=== PATIENT | female | born 1935 | race Two or more races ===

== ENCOUNTER 2016-09-25 21:22 | Emergency (ER) | payer MEDICAID ==
[~2016-09-25] VITALS: Ht 160 cm; Wt 74.9 kg
[~2016-09-25 21:22] MED LIST: ANAS1TAB6 PO; ASPI-231 PO; ATEN-60 PO; CLOP75TA28 PO; FURO40TA4 PO; GABA300C8 PO; LISI10TA6 PO; LOVA20TA4 PO; MECL12.554 PO
[2016-09-25] MEDS ORDERED: cloNIDine HCL 0.1 MG TAB ONE (21:28)
[2016-09-25] MEDS ORDERED: cloNIDine HCL 0.1 MG TAB PO ONE (22:00)
[2016-09-25 22:38] LABS: Albumin 3.5 g/dL (3.4-5.0); BUN/Creatinine Ratio 26.5; Calcium 9.6 mg/dL (8.5-10.1); Potassium 3.9 mmol/L (3.5-5.1)
[2016-09-25 22:41] LABS: Bilirubin, Total 0.4 mg/dL (0.2-1.0); Total Protein 7.4 g/dL (6.4-8.2)
[2016-09-25 22:42] VITALS: BP 113/58
[2016-09-25 22:48] LABS: Basophils # (auto) 0 uL; Basophils % (auto) 0.2 % (0.0-2.0); Eosinophils # (auto) 0.1 uL; Eosinophils % (auto) 1.3 % (0.0-7.0); Hematocrit 41.4 % (36.0-46.0); Hemoglobin 13.2 g/dL (12.2-16.2); Lymphocytes # (auto) 1.5 uL; Mean Corpuscular Hemoglobin 28.6 pg (28.0-32.0); Mean Corpuscular Hgb Conc. 31.9 g/dL (32.0-36.0); Mean Corpuscular Volume 89.7 fL (80.0-100.0); Mean Platelet Volume 8.4 fL (7.4-10.4); Monocytes # (auto) 0.8 uL; Neutrophils # (auto) 6.2 uL; Neutrophils % (auto) 71.5 % (37.0-80.0); Platelet Count (auto) 300 10^3/uL (140-450); Red Cell Distribution Width 12.4 % (11.6-16.0); White Blood Cell 8.6 10^3/uL (4.4-10.8)
[2016-09-25 22:58] LABS: INR 1.06 (0.9-1.15); Partial Thromboplastin Time 26.2 sec (22.64-33.71); Prothrombin Time 10.9 sec (9.37-12.3)
== END 2016-09-25 23:22 | disposition left against medical advice (07) ==
LOC: ER 21:25
DX: R03.0 Elevated blood-pressure reading, without diagnosis of hypertension (principal); Z53.21 Procedure and treatment not carried out due to patient leaving prior to being seen by health care provider
CPT/HCPCS: 36415; 80053; 84484; 85025; 85610; 85730; 93005

== ENCOUNTER 2017-11-01 05:37 | Inpatient (IN) | payer MEDICAID ==
[~2017-11-01] VITALS: Ht 167.6 cm; Wt 73.7 kg
[~2017-11-01 05:37] MED LIST changes: +GABA300C10 PO; -GABA300C8 PO
[2017-11-01] MEDS ORDERED: PROMETHAZINE W/CODEINE 5 ML ORAL SYRUP PO ONE (06:45)
[2017-11-01 07:29] LABS: Hematocrit 36.1 % (36.0-46.0); Hemoglobin 12.5 g/dL (12.2-16.2); Mean Corpuscular Hemoglobin 29.8 pg (28.0-32.0); Mean Corpuscular Hgb Conc. 34.7 g/dL (32.0-36.0); Mean Corpuscular Volume 85.9 fL (80.0-100.0); Platelet Count (auto) 379 10^3/uL (140-450); Red Cell Distribution Width 12.3 % (11.8-14.3); White Blood Cell 12.3 10^3/uL (4.4-10.8)
[2017-11-01 07:34] LABS: Basophils % (manual) 0 (0.0-2.0); Eosinophils % (manual) 0 (0-7); Metamyelocytes % 0; Myelocytes % 0
[2017-11-01 07:35] LABS: Blast Cells 0; Promyelocytes % 0; Reactive Lymphocytes 0
[2017-11-01 07:43] LABS: INR 1.04 (0.9-1.15); Prothrombin Time 11.3 sec (9.37-12.3)
[2017-11-01 08:00] LABS: Alanine Aminotransferase 26 U/L (13-56); Albumin 2.6 g/dL (3.4-5.0); Alkaline Phosphatase 84 U/L (45-117); Anion Gap 10 (5-15); Aspartate Aminotransferase 23 U/L (15-37); BUN/Creatinine Ratio 11.9; Bilirubin, Total 0.4 mg/dL (0.2-1.0); Blood Urea Nitrogen 7 mg/dL (7-18); Calcium 8.5 mg/dL (8.5-10.1); Carbon Dioxide 28 mmol/L (21-32); Chloride 87 mmol/L (98-107); GFR African American 125 mL/min; GFR Non-African American 103 mL/min; Glucose 179 mg/dL (74-106); Sodium 125 mmol/L (136-145); Total Protein 6.2 g/dL (6.4-8.2)
[2017-11-01 08:06] LABS: Potassium 2.5 mmol/L (3.5-5.1)
[2017-11-01] MEDS ORDERED: SODIUM CHLORIDE 0.9% 1,000 ML IV ONE ×2 (08:08)
[2017-11-01] MEDS ORDERED: cefTRIAXone 1GM/10ml IVPUSH 10 ML IV ONE (08:15)
[2017-11-01] MEDS: POTASSIUM CHL 20MEQ/100ML 100 ML IV SCH ×3 (08:15→12:15)
[2017-11-01] MEDS ORDERED: AZITHROMYCIN 500MG/ 250ML 250 ML IV ONE (08:15)
[2017-11-01 08:25] LABS: Band Neutrophils % (manual) 2; Lymphocytes % (manual) 8 (10.0-50.0); Monocytes % (manual) 5 (0-12)
[2017-11-01 10:12] LABS: Urine Bacteria NONE SEEN /hpf (None Seen); Urine Blood Negative /uL (Negative); Urine Specific Gravity 1.004 (1.001-1.035); Urine WBC 1 /hpf (0 - 5)
[2017-11-01] MEDS ORDERED: DEXTROSE (50%) 50ML SYRG IV PRN (14:15)
[2017-11-01] MEDS ORDERED: MORPHINE SULFATE 4 MG/ML SYR/VIAL IV PRN (14:30)
[2017-11-01] MEDS ORDERED: NITROGLYCERIN 0.4 MG SL TAB SL PRN (14:30)
[2017-11-01] MEDS ORDERED: ACETAMINOPHEN 325 MG TAB PO PRN (14:30)
[2017-11-01] MEDS ORDERED: DOCUSATE SOD 100 MG CAP PO PRN (14:30)
[2017-11-01] MEDS ORDERED: TEMAZEPAM 15 MG CAP PO PRN (14:30)
[2017-11-01] MEDS ORDERED: HYDROcodone-ACET 5/325MG TAB PO PRN (14:30)
[2017-11-01] MEDS ORDERED: ONDANSETRON HCL 4 MG/2 ML VIAL IV PRN (14:30)
[2017-11-01] MEDS ORDERED: MAGN400T5 PO (15:26)
[2017-11-01] MEDS ORDERED: CLON0.1T PO (15:26)
[2017-11-01] MEDS ORDERED: METF-370 PO (15:26)
[2017-11-01] MEDS ORDERED: cloNIDine HCL 0.1 MG TAB PO PRN (15:30)
[2017-11-01] MEDS ORDERED: MECLIZINE HCL 25 MG TAB PO PRN (15:30)
[2017-11-01] MEDS ORDERED: METOPROLOL SUCCINATE XL 50 MG TAB PO ONE (16:00)
[2017-11-01] MEDS ORDERED: ATORVASTATIN 20 MG TAB PO ONE (16:00)
[2017-11-01] MEDS: MAGNESIUM OXIDE 400 MG TAB PO SCH (16:19)
[2017-11-01] MEDS: CLOPIDOGREL BISULFATE 75 MG TAB PO SCH (16:19)
[2017-11-01] MEDS: GABAPENTIN 300 MG CAP PO SCH (16:19)
[2017-11-01] MEDS: ATORVASTATIN 20 MG TAB PO SCH (16:21)
[2017-11-01] MEDS: FUROSEMIDE 20 MG TAB PO SCH (16:21)
[2017-11-01] MEDS: metFORMIN HYDROCHLORIDE 500 MG TAB PO SCH (16:24)
[2017-11-01 16:39] VITALS: BP 162/93
[2017-11-01 17:00] VITALS: BP 163/93
[2017-11-01] MEDS: InsuLIN REG 1unit/0.01ml Soln (100units/ml) SC SCH (17:00)
[2017-11-01] MEDS: ACCU-CHEK COMFORT CURVE STRIP VI SCH ×2 (17:00→22:00)
[2017-11-01] MEDS: ALBUTEROL SULF 2.5 MG/0.5ML(0.5%) NEB SOLN NEB SCH (18:52)
[2017-11-01] MEDS: IPRATROPIUM BROM 0.5 MG/2.5ML INH SOL NEB SCH (18:52)
[2017-11-01 19:02] LABS: BUN/Creatinine Ratio 10.3; Calcium 8.7 mg/dL (8.5-10.1); Potassium 4.2 mmol/L (3.5-5.1)
[2017-11-01 19:25] VITALS: BP 163/93
[2017-11-01] MEDS: MORPHINE SULFATE 4 MG/ML SYR/VIAL IV PRN (20:00)
[2017-11-01] MEDS: LISINOPRIL 10 MG TAB PO SCH (20:08)
[2017-11-01] MEDS: SODIUM CHLOR 0.9% PF (SALINE LOCK) 10ML VIAL IV SCH (22:00)
[2017-11-01 22:15] VITALS: BP 183/77
[2017-11-02] MEDS: MAGNESIUM OXIDE 400 MG TAB PO SCH ×3 (00:11→23:33)
[2017-11-02] MEDS: GABAPENTIN 300 MG CAP PO SCH ×4 (00:12→23:33)
[2017-11-02] MEDS: FAMOTIDINE 20 MG TAB PO SCH ×3 (00:12→23:33)
[2017-11-02] MEDS: InsuLIN REG 1unit/0.01ml Soln (100units/ml) SC SCH ×5 (00:13→23:39)
[2017-11-02] MEDS: MORPHINE SULFATE 4 MG/ML SYR/VIAL IV PRN (00:14)
[2017-11-02] MEDS: ALBUTEROL SULF 2.5 MG/0.5ML(0.5%) NEB SOLN NEB SCH ×4 (00:15→18:53)
[2017-11-02] MEDS: IPRATROPIUM BROM 0.5 MG/2.5ML INH SOL NEB SCH ×4 (00:15→18:53)
[2017-11-02 05:23] VITALS: BP 156/50
[2017-11-02 05:39] LABS: Basophils # (auto) 0.1 uL; Eosinophils # (auto) 0.1 uL; Eosinophils % (auto) 0.5 % (0.0-7.0); Hematocrit 35.7 % (36.0-46.0); Hemoglobin 12.3 g/dL (12.2-16.2); Lymphocytes % (auto) 6.7 % (10.0-50.0); Mean Corpuscular Hemoglobin 29.7 pg (28.0-32.0); Mean Corpuscular Hgb Conc. 34.4 g/dL (32.0-36.0); Mean Corpuscular Volume 86.5 fL (80.0-100.0); Monocytes # (auto) 1.8 uL; Monocytes % (auto) 12.2 % (0.0-12.0); Neutrophils # (auto) 11.5 uL; Neutrophils % (auto) 79.6 % (37.0-80.0); Platelet Count (auto) 395 10^3/uL (140-450); Red Blood Cells 4.12 10^6/uL (4.0-5.20); Red Cell Distribution Width 12.5 % (11.8-14.3); White Blood Cell 14.4 10^3/uL (4.4-10.8)
[2017-11-02 05:54] LABS: Albumin 2.6 g/dL (3.4-5.0); BUN/Creatinine Ratio 13.5; Calcium 8.4 mg/dL (8.5-10.1); Potassium 3.1 mmol/L (3.5-5.1)
[2017-11-02 05:56] LABS: Bilirubin, Total 0.3 mg/dL (0.2-1.0); Total Protein 6.3 g/dL (6.4-8.2)
[2017-11-02] MEDS: SODIUM CHLOR 0.9% PF (SALINE LOCK) 10ML VIAL IV SCH ×3 (06:07→22:00)
[2017-11-02] MEDS: ACCU-CHEK COMFORT CURVE STRIP VI SCH ×4 (06:41→23:39)
[2017-11-02] MEDS: LISINOPRIL 10 MG TAB PO SCH ×2 (06:50→18:01)
[2017-11-02 09:09] VITALS: BP 139/58
[2017-11-02] MEDS: ANASTRAZOLE 1 MG TABLET PO SCH (10:00)
[2017-11-02] MEDS: ATORVASTATIN 20 MG TAB PO SCH (10:04)
[2017-11-02] MEDS: CLOPIDOGREL BISULFATE 75 MG TAB PO SCH (10:04)
[2017-11-02] MEDS: cefTRIAXone 1GM/10ml IVPUSH 10 ML IV SCH (10:04)
[2017-11-02] MEDS: MULTIPLE VITAMIN TAB PO SCH (10:05)
[2017-11-02] MEDS: FUROSEMIDE 20 MG TAB PO SCH (10:05)
[2017-11-02] MEDS: METOPROLOL SUCCINATE XL 50 MG TAB PO SCH (10:06)
[2017-11-02] MEDS: AZITHROMYCIN 500MG/ 250ML 250 ML IV SCH (10:21)
[2017-11-02] MEDS: metFORMIN HYDROCHLORIDE 500 MG TAB PO SCH (10:22)
[2017-11-02 12:52] VITALS: BP 122/58
[2017-11-02] MEDS ORDERED: POTASSIUM CHL 20 Meq TABLET PO ONE (13:00)
[2017-11-02] MEDS ORDERED: predniSONE 20 MG TAB PO SCH (13:15)
[2017-11-02] MEDS: MAGNESIUM SULFATE 1GM/100ML 100 ML IV SCH ×2 (14:00→16:06)
[2017-11-02] MEDS ORDERED: PROMETHAZINE W/CODEINE 5 ML ORAL SYRUP PO PRN (14:45)
[2017-11-02] MEDS: ENOXAPARIN SOD 40 MG/0.4 ML SYRINGE SC SCH (16:09)
[2017-11-02 16:50] VITALS: BP 140/73
[2017-11-02] MEDS: methylPREDNISolone SOD SUCC 40 MG/ML VL IV SCH ×2 (18:01→23:39)
[2017-11-02] MEDS: ACETYLCYSTEINE 10 %(100MG/ML) SOL 4ML NEB SCH (18:53)
[2017-11-02 22:08] VITALS: BP 151/63
[2017-11-03] MEDS: IPRATROPIUM BROM 0.5 MG/2.5ML INH SOL NEB SCH ×4 (00:19→20:13)
[2017-11-03] MEDS: ALBUTEROL SULF 2.5 MG/0.5ML(0.5%) NEB SOLN NEB SCH ×4 (00:19→20:14)
[2017-11-03] MEDS: ACETYLCYSTEINE 10 %(100MG/ML) SOL 4ML NEB SCH ×4 (00:19→20:14)
[2017-11-03 05:25] VITALS: BP 143/73
[2017-11-03 05:25] LABS: Hematocrit 37.5 % (36.0-46.0); Hemoglobin 12.7 g/dL (12.2-16.2); Mean Corpuscular Hemoglobin 29.6 pg (28.0-32.0); Mean Corpuscular Hgb Conc. 33.9 g/dL (32.0-36.0); Mean Corpuscular Volume 87.2 fL (80.0-100.0); Platelet Count (auto) 427 10^3/uL (140-450); Red Blood Cells 4.29 10^6/uL (4.0-5.20); Red Cell Distribution Width 12.9 % (11.8-14.3); White Blood Cell 15.8 10^3/uL (4.4-10.8)
[2017-11-03 05:38] LABS: Basophils % (manual) 0 (0.0-2.0); Blast Cells 0; Eosinophils % (manual) 0 (0-7); Promyelocytes % 0; Reactive Lymphocytes 0
[2017-11-03 05:42] LABS: BUN/Creatinine Ratio 23.4; Magnesium 2.6 mg/dL (1.6-2.6); Potassium 4.5 mmol/L (3.5-5.1)
[2017-11-03] MEDS: SODIUM CHLOR 0.9% PF (SALINE LOCK) 10ML VIAL IV SCH ×3 (06:00→21:44)
[2017-11-03 06:11] LABS: Band Neutrophils % (manual) 8; Lymphocytes % (manual) 8 (10.0-50.0); Metamyelocytes % 8; Monocytes % (manual) 1 (0-12); Myelocytes % 1
[2017-11-03] MEDS: methylPREDNISolone SOD SUCC 40 MG/ML VL IV SCH ×3 (06:55→19:43)
[2017-11-03] MEDS: LISINOPRIL 10 MG TAB PO SCH ×2 (06:55→19:43)
[2017-11-03] MEDS: GABAPENTIN 300 MG CAP PO SCH ×3 (06:55→21:43)
[2017-11-03] MEDS: InsuLIN REG 1unit/0.01ml Soln (100units/ml) SC SCH ×4 (06:56→22:11)
[2017-11-03] MEDS: ACCU-CHEK COMFORT CURVE STRIP VI SCH ×4 (06:56→21:53)
[2017-11-03 09:12] VITALS: BP 152/69
[2017-11-03] MEDS: MAGNESIUM OXIDE 400 MG TAB PO SCH ×2 (09:32→21:43)
[2017-11-03] MEDS: MULTIPLE VITAMIN TAB PO SCH (09:32)
[2017-11-03] MEDS: FAMOTIDINE 20 MG TAB PO SCH ×2 (09:33→21:43)
[2017-11-03] MEDS: ATORVASTATIN 20 MG TAB PO SCH (09:33)
[2017-11-03] MEDS: CLOPIDOGREL BISULFATE 75 MG TAB PO SCH (09:33)
[2017-11-03] MEDS: ENOXAPARIN SOD 40 MG/0.4 ML SYRINGE SC SCH (09:33)
[2017-11-03] MEDS: AZITHROMYCIN 500MG/ 250ML 250 ML IV SCH (09:34)
[2017-11-03] MEDS: FUROSEMIDE 20 MG TAB PO SCH (09:34)
[2017-11-03] MEDS: METOPROLOL SUCCINATE XL 50 MG TAB PO SCH (09:34)
[2017-11-03] MEDS: cefTRIAXone 1GM/10ml IVPUSH 10 ML IV SCH (09:34)
[2017-11-03] MEDS: metFORMIN HYDROCHLORIDE 500 MG TAB PO SCH (09:35)
[2017-11-03] MEDS: ANASTRAZOLE 1 MG TABLET PO SCH (09:44)
[2017-11-03 12:34] VITALS: BP 154/73
[2017-11-03 17:14] VITALS: BP 157/71
[2017-11-03 22:00] VITALS: BP 163/71
[2017-11-04] MEDS: methylPREDNISolone SOD SUCC 40 MG/ML VL IV SCH ×4 (00:16→18:00)
[2017-11-04] MEDS: ALBUTEROL SULF 2.5 MG/0.5ML(0.5%) NEB SOLN NEB SCH ×4 (01:02→18:56)
[2017-11-04] MEDS: ACETYLCYSTEINE 10 %(100MG/ML) SOL 4ML NEB SCH ×4 (01:02→18:56)
[2017-11-04] MEDS: IPRATROPIUM BROM 0.5 MG/2.5ML INH SOL NEB SCH ×4 (01:02→18:56)
[2017-11-04 05:00] VITALS: BP 160/73
[2017-11-04] MEDS: SODIUM CHLOR 0.9% PF (SALINE LOCK) 10ML VIAL IV SCH ×2 (06:20→15:49)
[2017-11-04] MEDS: LISINOPRIL 10 MG TAB PO SCH ×2 (06:21→18:00)
[2017-11-04] MEDS: GABAPENTIN 300 MG CAP PO SCH ×2 (06:21→15:49)
[2017-11-04 06:23] LABS: Hematocrit 35.1 % (36.0-46.0); Mean Corpuscular Hgb Conc. 34.1 g/dL (32.0-36.0); Platelet Count (auto) 403 10^3/uL (140-450); Red Blood Cells 3.99 10^6/uL (4.0-5.20); Red Cell Distribution Width 12.3 % (11.8-14.3); White Blood Cell 18.7 10^3/uL (4.4-10.8)
[2017-11-04] MEDS: ACCU-CHEK COMFORT CURVE STRIP VI SCH ×3 (06:36→17:00)
[2017-11-04] MEDS: InsuLIN REG 1unit/0.01ml Soln (100units/ml) SC SCH ×3 (06:37→17:00)
[2017-11-04 06:42] LABS: BUN/Creatinine Ratio 34.8; Calcium 8.9 mg/dL (8.5-10.1); Potassium 4.5 mmol/L (3.5-5.1)
[2017-11-04 06:43] LABS: Basophils % (manual) 0 (0.0-2.0); Blast Cells 0; Eosinophils % (manual) 0 (0-7); Metamyelocytes % 0; Myelocytes % 0; Promyelocytes % 0; Reactive Lymphocytes 0
[2017-11-04 09:00] VITALS: BP 183/80
[2017-11-04] MEDS: CLOPIDOGREL BISULFATE 75 MG TAB PO SCH (09:59)
[2017-11-04] MEDS: ATORVASTATIN 20 MG TAB PO SCH (09:59)
[2017-11-04] MEDS: MULTIPLE VITAMIN TAB PO SCH (09:59)
[2017-11-04] MEDS: cefTRIAXone 1GM/10ml IVPUSH 10 ML IV SCH (09:59)
[2017-11-04] MEDS: AZITHROMYCIN 500MG/ 250ML 250 ML IV SCH (09:59)
[2017-11-04] MEDS: FUROSEMIDE 20 MG TAB PO SCH (10:00)
[2017-11-04] MEDS: MAGNESIUM OXIDE 400 MG TAB PO SCH (10:00)
[2017-11-04] MEDS: METOPROLOL SUCCINATE XL 50 MG TAB PO SCH (10:00)
[2017-11-04] MEDS: FAMOTIDINE 20 MG TAB PO SCH (10:00)
[2017-11-04] MEDS: ENOXAPARIN SOD 40 MG/0.4 ML SYRINGE SC SCH (10:01)
[2017-11-04] MEDS: metFORMIN HYDROCHLORIDE 500 MG TAB PO SCH (10:14)
[2017-11-04] MEDS: ANASTRAZOLE 1 MG TABLET PO SCH (10:14)
[2017-11-04 11:30] LABS: Band Neutrophils % (manual) 3; Lymphocytes % (manual) 3 (10.0-50.0); Monocytes % (manual) 1 (0-12)
[2017-11-04 12:30] VITALS: BP 174/68
[2017-11-04] MEDS ORDERED: METOPROLOL SUCCINATE XL 50 MG TAB PO ONE (14:00)
[2017-11-04] MEDS ORDERED: LEVO500T21 PO (14:12)
[2017-11-04] MEDS ORDERED: IPRIH IN (14:12)
[2017-11-04] MEDS ORDERED: ALBUAER3 IN (14:12)
[2017-11-04] MEDS ORDERED: METO25TA62 PO (14:12)
[2017-11-04] MEDS ORDERED: METH4PAK PO (14:12)
[2017-11-04] MEDS ORDERED: DEXT1SYP6 PO (14:12)
[2017-11-04 17:00] VITALS: BP 161/78
[2017-11-05] MEDS ORDERED: METOPROLOL SUCCINATE XL 50 MG TAB PO SCH (10:00)
== END 2017-11-04 18:55 | disposition home health service (06) | DRG 141 ==
LOC: EDUNIT# 05:37 → ER 05:37 → EDBD 05:37 → TELE-WESTW 05:38
PROVIDERS: ADMIT Internal Medicine; ATTEND Hospitalist
DX: J45.901 Unspecified asthma with (acute) exacerbation (principal); J96.01 Acute respiratory failure with hypoxia; J18.1 Lobar pneumonia, unspecified organism; E44.0 Moderate protein-calorie malnutrition; I11.0 Hypertensive heart disease with heart failure; I50.42 Chronic combined systolic (congestive) and diastolic (congestive) heart failure; J20.9 Acute bronchitis, unspecified; E87.1 Hypo-osmolality and hyponatremia; E11.42 Type 2 diabetes mellitus with diabetic polyneuropathy; E87.6 Hypokalemia; E11.9 Type 2 diabetes mellitus without complications; E78.5 Hyperlipidemia, unspecified; I25.10 Atherosclerotic heart disease of native coronary artery without angina pectoris; Z85.3 Personal history of malignant neoplasm of breast; Z95.5 Presence of coronary angioplasty implant and graft; Z88.8 Allergy status to other drugs, medicaments and biological substances; Z79.82 Long term (current) use of aspirin; Z79.899 Other long term (current) drug therapy; Z68.26 Body mass index [BMI] 26.0-26.9, adult
CPT/HCPCS: 36415; 51702; 71045; 71046; 80048; 80053; 81001; 82962; 83036; 83605; 83735; 83880; 84443; 84484; 85007; 85025; 85027; 85610; 85730; 87040; 87070; 87081; 87205; 87804; 93306; 94640; 96365; 96366; 96368; 96375; J1815; J3480

== ENCOUNTER 2017-11-11 16:43 | Inpatient (IN) | payer MEDICAID ==
[~2017-11-11] VITALS: Ht 160 cm; Wt 69.8 kg
[~2017-11-11 16:43] MED LIST changes: +ALBUAER3 IN; -ATEN-60 PO; +CLON0.1T PO; +DEXT1SYP6 PO; +IPRIH IN; +LEVO500T21 PO; +MAGN400T5 PO; +METF-370 PO; +METH4PAK PO; +METO25TA62 PO
[2017-11-11] MEDS ORDERED: SODIUM CHLORIDE 0.9% 500 ML IVB ONE (17:49)
[2017-11-11 18:50] LABS: Basophils # (auto) 0.1 uL; Basophils % (auto) 1.1 % (0.0-2.0); Eosinophils # (auto) 0.1 uL; Eosinophils % (auto) 1.1 % (0.0-7.0); Hematocrit 38.3 % (36.0-46.0); Hemoglobin 12.6 g/dL (12.2-16.2); Lymphocytes # (auto) 1.7 uL; Lymphocytes % (auto) 12.2 % (10.0-50.0); Mean Corpuscular Hemoglobin 29.9 pg (28.0-32.0); Mean Corpuscular Volume 90.7 fL (80.0-100.0); Monocytes # (auto) 1.3 uL; Monocytes % (auto) 9.6 % (0.0-12.0); Neutrophils # (auto) 10.4 uL; Platelet Count (auto) 299 10^3/uL (140-450); Red Blood Cells 4.23 10^6/uL (4.0-5.20); White Blood Cell 13.7 10^3/uL (4.4-10.8)
[2017-11-11 19:05] LABS: INR 1.05 (0.9-1.15); Partial Thromboplastin Time 23.4 sec (22.64-33.71); Prothrombin Time 11.4 sec (9.37-12.3)
[2017-11-11 19:07] LABS: BUN/Creatinine Ratio 36.6; Calcium 8.9 mg/dL (8.5-10.1); Magnesium 2.1 mg/dL (1.6-2.6); Potassium 3.4 mmol/L (3.5-5.1)
[2017-11-11 19:10] LABS: Bilirubin, Total 0.5 mg/dL (0.2-1.0); Total Protein 6.5 g/dL (6.4-8.2)
[2017-11-11 19:15] LABS: Urine Bacteria FEW /hpf (None Seen); Urine Blood Negative /uL (Negative); Urine Hyaline Cast MOD /lpf (0 - 2); Urine Specific Gravity 1.019 (1.001-1.035); Urine WBC 2 /hpf (0 - 5)
[2017-11-11] MEDS ORDERED: POTASSIUM CHL 10 Meq TABLET PO ONE (21:15)
[2017-11-11] MEDS ORDERED: ONDANSETRON HCL 4 MG/2 ML VIAL IV PRN (21:15)
[2017-11-11] MEDS ORDERED: HYDROcodone-ACET 5/325MG TAB PO PRN (21:15)
[2017-11-11] MEDS ORDERED: ALBUTEROL SULF 2.5 MG/0.5ML(0.5%) NEB SOLN NEB PRN (21:15)
[2017-11-11] MEDS ORDERED: ACETAMINOPHEN 500 MG TAB PO PRN (21:15)
[2017-11-11] MEDS ORDERED: cloNIDine HCL 0.1 MG TAB PO PRN (21:15)
[2017-11-11 22:44] VITALS: BP 125/50
[2017-11-11] MEDS: GABAPENTIN 300 MG CAP PO SCH (23:00)
[2017-11-12] VITALS (8 sets, daily range): BP systolic 103–130; BP diastolic 47–74
[2017-11-12] MEDS: GABAPENTIN 300 MG CAP PO SCH ×3 (05:44→21:43)
[2017-11-12 06:51] LABS: Basophils # (auto) 0 uL; Basophils % (auto) 0.2 % (0.0-2.0); Eosinophils # (auto) 0.1 uL; Eosinophils % (auto) 1.1 % (0.0-7.0); Hematocrit 33.4 % (36.0-46.0); Hemoglobin 11.4 g/dL (12.2-16.2); Lymphocytes % (auto) 10.4 % (10.0-50.0); Mean Corpuscular Hemoglobin 30.5 pg (28.0-32.0); Mean Corpuscular Hgb Conc. 34.2 g/dL (32.0-36.0); Mean Corpuscular Volume 89.2 fL (80.0-100.0); Monocytes # (auto) 0.9 uL; Monocytes % (auto) 10.3 % (0.0-12.0); Neutrophils # (auto) 7.1 uL; Platelet Count (auto) 267 10^3/uL (140-450); Red Blood Cells 3.75 10^6/uL (4.0-5.20); Red Cell Distribution Width 12.9 % (11.8-14.3); White Blood Cell 9.1 10^3/uL (4.4-10.8)
[2017-11-12 07:35] LABS: BUN/Creatinine Ratio 39.4; Potassium 3.7 mmol/L (3.5-5.1)
[2017-11-12] MEDS: METOPROLOL SUCCINATE XL 50 MG TAB PO SCH (08:38)
[2017-11-12] MEDS: metFORMIN HYDROCHLORIDE 500 MG TAB PO SCH ×2 (08:38→18:09)
[2017-11-12] MEDS: CLOPIDOGREL BISULFATE 75 MG TAB PO SCH (08:38)
[2017-11-12] MEDS: amLODIPine BESYLATE 5 MG TAB PO SCH (08:39)
[2017-11-13 05:31] VITALS: BP 133/55
[2017-11-13] MEDS: GABAPENTIN 300 MG CAP PO SCH ×2 (06:17→14:00)
[2017-11-13 07:23] LABS: Basophils # (auto) 0 uL; Basophils % (auto) 0.3 % (0.0-2.0); Eosinophils # (auto) 0.2 uL; Eosinophils % (auto) 1.7 % (0.0-7.0); Hemoglobin 11.6 g/dL (12.2-16.2); Lymphocytes # (auto) 0.9 uL; Lymphocytes % (auto) 10.1 % (10.0-50.0); Mean Corpuscular Hemoglobin 30.5 pg (28.0-32.0); Mean Corpuscular Hgb Conc. 34.1 g/dL (32.0-36.0); Mean Corpuscular Volume 89.4 fL (80.0-100.0); Monocytes % (auto) 10.5 % (0.0-12.0); Neutrophils # (auto) 7.1 uL; Neutrophils % (auto) 77.4 % (37.0-80.0); Platelet Count (auto) 241 10^3/uL (140-450); Red Cell Distribution Width 12.5 % (11.8-14.3); White Blood Cell 9.2 10^3/uL (4.4-10.8)
[2017-11-13 07:36] LABS: BUN/Creatinine Ratio 31.6; Potassium 3.6 mmol/L (3.5-5.1)
[2017-11-13 09:00] VITALS: BP 153/76
[2017-11-13] MEDS: metFORMIN HYDROCHLORIDE 500 MG TAB PO SCH (10:32)
[2017-11-13] MEDS: METOPROLOL SUCCINATE XL 50 MG TAB PO SCH (10:34)
[2017-11-13] MEDS: amLODIPine BESYLATE 5 MG TAB PO SCH (10:35)
[2017-11-13] MEDS: CLOPIDOGREL BISULFATE 75 MG TAB PO SCH (10:35)
[2017-11-13 13:02] VITALS: BP 143/60
== END 2017-11-13 15:30 | disposition home or self-care (01) | DRG 468 ==
LOC: ER 16:47 → OVERFLOW 16:48 → WEST WING 22:04
PROVIDERS: ADMIT Nurse Practitioner Family; ATTEND Internal Medicine
DX: N31.2 Flaccid neuropathic bladder, not elsewhere classified (principal); E11.22 Type 2 diabetes mellitus with diabetic chronic kidney disease; N18.3 Chronic kidney disease, stage 3 (moderate); R33.9 Retention of urine, unspecified; E78.5 Hyperlipidemia, unspecified; I12.9 Hypertensive chronic kidney disease with stage 1 through stage 4 chronic kidney disease, or unspecified chronic kidney disease; Z96.641 Presence of right artificial hip joint; Z79.890 Hormone replacement therapy; Z79.899 Other long term (current) drug therapy; Z83.3 Family history of diabetes mellitus; Z85.05 Personal history of malignant neoplasm of liver; Z85.3 Personal history of malignant neoplasm of breast; Z92.21 Personal history of antineoplastic chemotherapy; Z92.3 Personal history of irradiation
CPT/HCPCS: 36415; 71045; 74176; 80048; 80053; 81001; 83605; 83735; 85025; 85610; 85730; 87040; 87493; 93005

== ENCOUNTER 2019-08-03 14:17 | Inpatient (IN) | payer MEDICAID, OTHER ==
[~2019-08-03] VITALS: Ht 162.6 cm; Wt 77.6 kg
[~2019-08-03 14:17] MED LIST changes: -ANAS1TAB6 PO; +ANAS1TAB7 PO; -LEVO500T21 PO; +MAGN400T40 PO; -MAGN400T5 PO; -METO25TA62 PO; +METO25TA93 PO
[2019-08-03] MEDS ORDERED: SODIUM CHLORIDE 0.9% 500 ML IVB ONE (14:38)
[2019-08-03] MEDS ORDERED: HYDROmorphone HCL 2 MG/ML VL IV ONE (14:45)
[2019-08-03] MEDS ORDERED: ONDANSETRON HCL 4 MG/2 ML VIAL IV ONE (14:45)
[2019-08-03 15:54] LABS: Basophils # (auto) 0 uL; Basophils % (auto) 0.2 % (0.0-2.0); Eosinophils # (auto) 0 uL; Eosinophils % (auto) 0.1 % (0.0-7.0); Hematocrit 44.5 % (36.0-46.0); Hemoglobin 15.4 g/dL (12.2-16.2); Lymphocytes # (auto) 1.2 uL; Lymphocytes % (auto) 6.4 % (10.0-50.0); Mean Corpuscular Hemoglobin 30.5 pg (28.0-32.0); Mean Corpuscular Hgb Conc. 34.5 g/dL (32.0-36.0); Mean Corpuscular Volume 88.4 fL (80.0-100.0); Monocytes # (auto) 1.1 uL; Monocytes % (auto) 5.9 % (0.0-12.0); Neutrophils # (auto) 15.8 uL; Neutrophils % (auto) 87.4 % (37.0-80.0); Nucleated Red Blood Cells % 0.1 %; Platelet Count (auto) 291 10^3/uL (140-450); Red Blood Cells 5.03 10^6/uL (4.0-5.20); Red Cell Distribution Width 12.7 % (11.8-14.3)
[2019-08-03 16:12] LABS: Albumin 3.8 g/dL (3.4-5.0); Calcium 9.5 mg/dL (8.5-10.1); Potassium 4.1 mmol/L (3.5-5.1)
[2019-08-03 16:15] LABS: BUN/Creatinine Ratio 17.7; Bilirubin, Total 0.6 mg/dL (0.2-1.0); Total Protein 7.3 g/dL (6.4-8.2)
[2019-08-03] MEDS ORDERED: SODIUM CHLORIDE 0.9% 1,000 ML IV ONE (18:45)
[2019-08-03] MEDS ORDERED: MORPHINE SULF INJ 2 MG/ML SYRINGE 1ML IV PRN (18:45)
[2019-08-03] MEDS ORDERED: DEXTROSE (50%) 50ML SYRG IV PRN (18:45)
[2019-08-03] MEDS ORDERED: NITROGLYCERIN 0.4 MG SL TAB SL PRN (18:45)
[2019-08-03] MEDS: D5W/SOD CHL 0.45%/KCL 20MEQ 1,000 ML IV SCH (19:41)
[2019-08-03] MEDS: MORPHINE SULF INJ 2 MG/ML SYRINGE 1ML IV PRN ×2 (20:12→23:05)
--- NOTE | 2019-08-03 21:17 | NUR ---
Telemetry admit from KEENA HOFFMAN admitted to Telemetry unit after SBAR received. Patient oriented to CATHY CLAROS RN primary RN, unit, room, bed, and unit policies regarding patient care and visiting hours. Patient now on continuous telemetry monitoring, tele box # 6 and telemetry reading on arrival to unit is SR 72. Patient placed on bedside oxygen, weighed by bedscale and encouraged to call if they need something. All questions and concerns addressed, patient verbalized understanding. Note:
[2019-08-03] MEDS: InsuLIN REG 1unit/0.01ml Soln (100units/ml) SC SCH (22:00)
[2019-08-03] MEDS: ACCU-CHEK COMFORT CURVE STRIP VI SCH (22:01)
[2019-08-03] MEDS: FAMOTIDINE (10MG/ML) 2ML VL IV SCH (22:01)
[2019-08-03] MEDS: LEVOFLOXACIN 500MG 100 ML IV SCH (22:01)
[2019-08-03] MEDS: ONDANSETRON HCL 4 MG/2 ML VIAL IV PRN (22:02)
[2019-08-03] MEDS: metroNIDAZOLE 500MG/100ML 100 ML IV SCH (23:04)
[2019-08-03] MEDS ORDERED: ANAS1TAB7 PO (23:52)
[2019-08-03] MEDS ORDERED: LOVA20TA4 PO (23:52)
[2019-08-03] MEDS ORDERED: CLON0.1T PO (23:52)
[2019-08-03] MEDS ORDERED: METO25TA93 PO (23:52)
[2019-08-03] MEDS ORDERED: MECL12.554 PO (23:52)
[2019-08-03] MEDS ORDERED: CLOP75TA41 PO (23:52)
[2019-08-03] MEDS ORDERED: GABA300C PO (23:52)
[2019-08-03] MEDS ORDERED: MAGN400T40 PO (23:52)
[2019-08-03] MEDS ORDERED: METF-370 PO (23:52)
[2019-08-03] MEDS ORDERED: LISI10TA6 PO (23:52)
[2019-08-03] MEDS ORDERED: FURO1TAB33 PO (23:52)
[2019-08-03] MEDS ORDERED: AML5T PO (23:52)
[2019-08-04] MEDS: MORPHINE SULF INJ 2 MG/ML SYRINGE 1ML IV PRN ×5 (04:57→21:06)
[2019-08-04] MEDS: ONDANSETRON HCL 4 MG/2 ML VIAL IV PRN ×3 (04:57→17:28)
[2019-08-04 05:00] VITALS: BP 130/66
[2019-08-04] MEDS: metroNIDAZOLE 500MG/100ML 100 ML IV SCH ×3 (05:54→20:50)
[2019-08-04] MEDS: InsuLIN REG 1unit/0.01ml Soln (100units/ml) SC SCH ×4 (05:54→21:08)
[2019-08-04] MEDS: ACCU-CHEK COMFORT CURVE STRIP VI SCH ×4 (05:54→20:51)
--- NOTE | 2019-08-04 07:38 | NUR ---
Dr. Zuluaga at bedside.
[2019-08-04 07:47] LABS: Basophils # (auto) 0 uL; Basophils % (auto) 0.1 % (0.0-2.0); Eosinophils # (auto) 0 uL; Eosinophils % (auto) 0.3 % (0.0-7.0); Hematocrit 42.6 % (36.0-46.0); Hemoglobin 14.5 g/dL (12.2-16.2); Lymphocytes # (auto) 1.3 uL; Lymphocytes % (auto) 9.4 % (10.0-50.0); Mean Corpuscular Hemoglobin 30.1 pg (28.0-32.0); Mean Corpuscular Hgb Conc. 33.9 g/dL (32.0-36.0); Mean Corpuscular Volume 88.6 fL (80.0-100.0); Monocytes # (auto) 1.4 uL; Monocytes % (auto) 10.8 % (0.0-12.0); Neutrophils # (auto) 10.6 uL; Neutrophils % (auto) 79.4 % (37.0-80.0); Nucleated Red Blood Cells % 0.1 %; Platelet Count (auto) 273 10^3/uL (140-450); Red Blood Cells 4.81 10^6/uL (4.0-5.20); Red Cell Distribution Width 12.7 % (11.8-14.3); White Blood Cell 13.3 10^3/uL (4.4-10.8)
--- NOTE | 2019-08-04 08:00 | NUR ---
Opening Note Assumed care of patient, she is A & O x4, son is at bedside. Patient speaks Chadian and understands some Singaporean. Son interprets for patient. She has an NG to the right nare on low continuous suction. Patient is otherwise comfortable at this time. POC discussed with patient and family. Bed is in lowest, locked position, call light within reach will continue to monitor Q1h and PRN.
[2019-08-04 08:03] LABS: INR 1.09 (0.9-1.15); Partial Thromboplastin Time 27.2 sec (23.64-32.05)
[2019-08-04 08:06] LABS: Albumin 3.1 g/dL (3.4-5.0); Calcium 8.2 mg/dL (8.5-10.1); Potassium 4.4 mmol/L (3.5-5.1)
[2019-08-04 08:10] LABS: Bilirubin, Total 0.5 mg/dL (0.2-1.0); Total Protein 6.6 g/dL (6.4-8.2)
[2019-08-04] MEDS ORDERED: GASTROGRAFIN 120 ML SOL ONE (08:23)
[2019-08-04] MEDS ORDERED: ADENOSINE 61 MG in GIVE UN-DILUTED 0 ML IV ONE (08:30)
--- NOTE | 2019-08-04 08:55 | NUR ---
Disconnected patient from NG tube wall suction. For the small bowel series xray, will keep patient off of suction following xray for the series of pictures per protocol. Will continue to monitor patient.
[2019-08-04 09:00] VITALS: BP 129/66
--- NOTE | 2019-08-04 09:00 | NUR ---
Patient to xray to begin small bowel series.
[2019-08-04 10:01] LABS: BUN/Creatinine Ratio 16.5
[2019-08-04] MEDS: LEVOFLOXACIN 500MG 100 ML IV SCH (10:56)
[2019-08-04] MEDS: D5W/SOD CHL 0.45%/KCL 20MEQ 1,000 ML IV SCH ×2 (10:56→15:25)
[2019-08-04] MEDS: FAMOTIDINE (10MG/ML) 2ML VL IV SCH ×2 (10:57→20:50)
[2019-08-04 13:00] VITALS: BP 131/62
--- NOTE | 2019-08-04 15:30 | NUR ---
Dr. Lucina Bauer at bedside.
[2019-08-04 17:00] VITALS: BP 135/90
--- NOTE | 2019-08-04 17:00 | NUR ---
Patient is nauseated and c/o stomach discomfort. Will medicate per orders.
--- NOTE | 2019-08-04 18:00 | NUR ---
Patient is vomiting green bile. Connected patient to suction and removed 200 ml of green fluid using NG wall suction and disconnected. Patient more comfortable. Will continue to monitor. Per xray, they need her to remain off of suction to complete the series of xray.
[2019-08-04 20:27] LABS: Urine Bacteria FEW /hpf (None Seen); Urine Blood 2+ /uL (Negative); Urine Hyaline Cast FEW /lpf (0 - 2); Urine Mucus FEW (None Seen); Urine WBC 12 /hpf (0 - 5)
[2019-08-04 22:03] VITALS: BP 151/86
[2019-08-05] MEDS: D5W/SOD CHL 0.45%/KCL 20MEQ 1,000 ML IV SCH ×3 (00:45→20:45)
[2019-08-05] MEDS: MORPHINE SULF INJ 2 MG/ML SYRINGE 1ML IV PRN ×5 (03:15→20:41)
[2019-08-05] MEDS: ONDANSETRON HCL 4 MG/2 ML VIAL IV PRN ×4 (03:15→20:42)
--- NOTE | 2019-08-05 04:39 | NUR ---
ATTEMPTED TO USE BLUE PHONE COLUMN PRECASTER, PATIENT IS HARD OF HEARING. PATIENT STATES IN ESTONIAN SHE HAS BLOOD IN HER NOSE. INFORMED COLUMN PRECASTER SHE HAS BILE FROM NOSE THERE IS NO BLOOD PRESENT. COLUMN PRECASTER INFORMED ME HOW TO TRANSLATE SINCE PATIENT IS HARD OF HEARING. PATIENT NODDED AND CALMED DOWN.
[2019-08-05 05:20] VITALS: BP 156/78
[2019-08-05] MEDS: metroNIDAZOLE 500MG/100ML 100 ML IV SCH ×3 (05:43→20:41)
[2019-08-05] MEDS: ACCU-CHEK COMFORT CURVE STRIP VI SCH ×4 (05:43→22:52)
[2019-08-05] MEDS: InsuLIN REG 1unit/0.01ml Soln (100units/ml) SC SCH ×4 (05:43→22:53)
--- NOTE | 2019-08-05 08:00 | NUR ---
Opening Note Assumed care of patient, she is A & O x4, no s/s of distress, son is at bedside. Patient is having some nausea. Upon assessment patient IV to the right forearm is showing erythema and edema and is tender to the touch. This RN discontinued the IV, catheter intact, pressure dressing applied, will apply warm compress. POC discussed with patient and family. Bed is in lowest, locked position, call light within reach. Will continue to monitor Q1h and PRN.
[2019-08-05 08:55] VITALS: BP 165/92
--- NOTE | 2019-08-05 09:00 | NUR ---
IV placed to the right AC 20G to the right AC placed, using clean technique. Patient tolerated well. Will continue to monitor. Nuc Med at bedside ready to take patient for procedure.
[2019-08-05] MEDS: FAMOTIDINE (10MG/ML) 2ML VL IV SCH (09:22)
--- NOTE | 2019-08-05 09:35 | NUR ---
Dr. Irwin at bedside Stress test first, may need to operate, patient is not passing gas, no BM, and continued pain in the abdomen. Son Messi at bedside interpreting for patient and doctor. Patient has to be cleared by cardiology prior to surgery. No orders at this time.
--- NOTE | 2019-08-05 09:38 | NUR ---
Patient to stress test.
[2019-08-05] MEDS: LEVOFLOXACIN 250MG 50 ML IV SCH (11:35)
--- NOTE | 2019-08-05 12:30 | NUR ---
Dr. Irwin called to check up on patient status
--- NOTE | 2019-08-05 12:38 | NUR ---
Paged Dr. Zuluaga Per Dr. Irwin, please page Dr. Zuluaga to get follow up results regarding stress results.
[2019-08-05 13:00] VITALS: BP 164/73
--- NOTE | 2019-08-05 14:08 | NUR ---
Pagearaceli Irwin is waiting on stress test results, still no call from Dr. Zuluaga. Waiting for cardiac clearance for surgery.
--- NOTE | 2019-08-05 14:29 | NUR ---
Dr. Underwood at bedside. Surgery will have to wait until tomorrow, no cardiac clearance today. This RN called to update son Messi and patient regarding situation.
--- NOTE | 2019-08-05 14:32 | NUR ---
Dr. Irwin notified of patient elevated BP No PRN BP meds, patient is on multiple blood pressure medications at home. No phone calls from Dr. Lucina Muñoz, Dr. Zuluaga stated he would write a PRN this morning when he made rounds and never entered any PRN BP meds, nor returned pages. Will await orders.
--- NOTE | 2019-08-05 14:35 | NUR ---
Paged Dr. Lucina Bauer patient has elevated BP. No PRN medications at this time. Patient is not receiving home medications she has many BP medications, patient is NPO a this time and connection to NG suction. Need PRN BP medications. Will await orders.
[2019-08-05] MEDS ORDERED: LABETALOL HCL 5 MG/ML 4ML SYRINGE IV PRN (15:45)
--- NOTE | 2019-08-05 15:55 | NUR ---
Paged Dr. Lucina Muñoz Second time, patient BP elevated. Will await call back. Patient with no s/s of distress at this time. Will continue to monitor.
[2019-08-05] MEDS ORDERED: LABETALOL HCL 5 MG/ML ML 20ML VIAL IV PRN (16:15)
[2019-08-05 16:53] VITALS: BP 189/90
--- NOTE | 2019-08-05 16:54 | NUR ---
Spoke to Dr. Lucina Muñoz on telephone Informed doctor regarding patient elevated BP 198/95, HR 105. PRN orders received, read back and verified. Will medicate per orders.
--- NOTE | 2019-08-05 17:15 | NUR ---
Dr. Lucina Muñoz at bedside.
[2019-08-05] MEDS: hydrALAZINE HCL 20 MG/ML VL IV PRN (18:25)
--- NOTE | 2019-08-05 19:20 | NUR ---
Endorsed care to Ludivina MOE, NOC shift Patient is lying in bed, comfortable at this time, occasionally patient will c/o nausea and dry heaving, this RN checked patency of NG suction, it is patent and draining. Patient has been given nausea medication. Informed Ludivina MOE that patient BP has been elevated, multiple attempts to get BP meds today and cardiac clearance. Last BP was 163/75 HR 105 after Hydralazine was given. Bed is in lowest, locked position, call light within reach.
[2019-08-05 21:59] VITALS: BP 169/84
[2019-08-05] MEDS: LABETALOL HCL 5 MG/ML ML 20ML VIAL IV PRN (22:40)
[2019-08-06] VITALS (43 sets, daily range): BP systolic 80–174; BP diastolic 33–84
[2019-08-06] MEDS: MORPHINE SULF INJ 2 MG/ML SYRINGE 1ML IV PRN ×2 (00:29→03:50)
[2019-08-06] MEDS: ONDANSETRON HCL 4 MG/2 ML VIAL IV PRN (00:42)
[2019-08-06] MEDS: hydrALAZINE HCL 20 MG/ML VL IV PRN (00:56)
--- NOTE | 2019-08-06 02:22 | NUR ---
PATENTCY OF NGT PATIENT NGT HAS LOW OUTPT OF GASTRIC DRAINAGE. FLUSHED NGT WITH STERILE WATER AND HOOKED NGT BACK TO SUCTION. NGT IN PLACE PATENT AND INTACT. PATIENT NGT PLACE ON LOW CONTINUOUS SUCTION. NURSE LEW AT BEDSIDE HELPED COMMUNICATED WITH PATIENT. INFORMED HER PLAN OF CARE, AND ALL NEEDS MET. WILL CONTINUE TO MONITOR PATIENT.
[2019-08-06] MEDS: D5W/SOD CHL 0.45%/KCL 20MEQ 1,000 ML IV SCH (05:07)
[2019-08-06] MEDS: metroNIDAZOLE 500MG/100ML 100 ML IV SCH ×2 (05:21→17:00)
[2019-08-06] MEDS: InsuLIN REG 1unit/0.01ml Soln (100units/ml) SC SCH ×4 (05:21→22:32)
[2019-08-06] MEDS: ACCU-CHEK COMFORT CURVE STRIP VI SCH ×4 (05:21→22:00)
[2019-08-06 06:03] LABS: Basophils # (auto) 0 uL; Basophils % (auto) 0.2 % (0.0-2.0); Eosinophils # (auto) 0 uL; Eosinophils % (auto) 0.1 % (0.0-7.0); Hematocrit 43.6 % (36.0-46.0); Hemoglobin 15.1 g/dL (12.2-16.2); Lymphocytes % (auto) 6.5 % (10.0-50.0); Mean Corpuscular Hgb Conc. 34.6 g/dL (32.0-36.0); Mean Corpuscular Volume 89.5 fL (80.0-100.0); Monocytes # (auto) 1.6 uL; Monocytes % (auto) 10.1 % (0.0-12.0); Neutrophils # (auto) 13.1 uL; Neutrophils % (auto) 83.1 % (37.0-80.0); Platelet Count (auto) 262 10^3/uL (140-450); Red Blood Cells 4.87 10^6/uL (4.0-5.20); Red Cell Distribution Width 12.9 % (11.8-14.3); White Blood Cell 15.8 10^3/uL (4.4-10.8)
[2019-08-06 06:14] LABS: INR 1.16 (0.9-1.15); Partial Thromboplastin Time 27.3 sec (23.64-32.05)
[2019-08-06 06:18] LABS: Potassium 3.7 mmol/L (3.5-5.1)
[2019-08-06 06:24] LABS: BUN/Creatinine Ratio 15.8; Calcium 8.8 mg/dL (8.5-10.1); Magnesium 1.9 mg/dL (1.6-2.6)
--- NOTE | 2019-08-06 06:50 | NUR ---
CARDIAC CLEARANCE FOR SURGERY BY DR NAVARRO. SPOKE WITH MELECIO SULLIVAN INFORMED HIM THE PLAN OF CARE AND PATIENT IS SCHEDULED FOR SURGERY WITH DR BISHOP @ 0900 AND TO ARRIVE HERE IN THE HOSPITAL IN PREPARATION FOR SURGERY TO SIGN CONSENTS. PATIENT MELECIO SULLIVAN VERBALIZES UNDERSTANDING NO QUESTIONS ASKED.
--- NOTE | 2019-08-06 07:30 | NUR ---
Opening Shift Note Assumed care of patient, awake and alert. No S/S of distress/SOB or pain. Instructed on POC and to call for assist PRN, will continue to monitor for changes Q1hr and PRN. Addendum: 08/06/19 at 1234 by Myron Interiano RN RIGHT NARE NG TUBE IN PLACE AND SET TO LCS. MINIMAL DARK GREENISH FLUID DRAINING.
--- NOTE | 2019-08-06 08:40 | NUR ---
PATIENT OFF UNIT TO PRE OP FOR LAP PROCEDURE. SON AT BEDSIDE. NO SIGNS OF DISTRESS OR PAIN NOTED. NG TUBE DISCONNECTED FROM SUCTION. REPORT GIVEN TO MARCELLO IN PRE-OP.
[2019-08-06] MEDS ORDERED: ceFAZolin 1GM/50ML 50 ML IV ONE (08:55)
[2019-08-06] MEDS ORDERED: LIDOCAINE 1% (LOCAL ANESTH.) PF 5ml SDV ONE (09:02)
[2019-08-06] MEDS ORDERED: SUCCINYLCHOLINE CHLORIDE 20 MG/ML 10ML VIAL IV ONE (09:02)
[2019-08-06] MEDS ORDERED: MIDAZOLAM HCL 1MG/1ML-2 ML VIAL ONE ×3 (09:04→12:53)
[2019-08-06] MEDS ORDERED: ROCURONIUM 10MG/ML 10ML VIAL IV ONE (09:07)
[2019-08-06] MEDS ORDERED: ETOMIDATE (2MG/ML) 20ML VIAL IV ONE (09:08)
[2019-08-06] MEDS ORDERED: fentaNYL CITRATE 100 MCG/2 ML VL ONE (09:26)
[2019-08-06] MEDS ORDERED: ePHEDrine SULFATE 50 MG/ML AMP ONE (09:34)
[2019-08-06] MEDS ORDERED: SODIUM CHLORIDE LOCK 20 ML ONE (09:34)
[2019-08-06] MEDS ORDERED: PHENYLEPHRINE HCL 10 MG/ML VL ONE (09:34)
[2019-08-06] MEDS ORDERED: ESMOLOL HCL 10 ML IV ONE (09:41)
[2019-08-06] MEDS: LEVOFLOXACIN 250MG 50 ML IV SCH (10:00)
[2019-08-06] MEDS: FAMOTIDINE (10MG/ML) 2ML VL IV SCH (10:00)
[2019-08-06] MEDS ORDERED: HYDROmorphone HCL 2 MG/ML VL IV PRN ×2 (11:30)
[2019-08-06] MEDS ORDERED: ONDANSETRON HCL 4 MG/2 ML VIAL IV PRN (11:30)
[2019-08-06] MEDS ORDERED: ePHEDrine SULFATE 50 MG/ML AMP IV PRN (11:30)
[2019-08-06] MEDS ORDERED: ACCU-CHEK COMFORT CURVE STRIP VI ONE (11:30)
[2019-08-06] MEDS ORDERED: POVIDONE IODINE 10 % TOPICAL OINT 30GM TOP ONE (11:52)
[2019-08-06] MEDS ORDERED: MIDAZOLAM DRIP 50 mg/50mL 50 ML IV SCH (12:07)
[2019-08-06] MEDS ORDERED: MIDAZOLAM DRIP 50 mg/50mL 50 ML IV ONE (12:12)
--- NOTE | 2019-08-06 12:32 | NUR ---
PATIENT IS BEING TRANSFERRED TO ICU. I WAS INFORMED BY THE CRANE SERVICE TECHNICIAN. PATIENT IS GOING TO ROOM 109 WITH SKYE. CHARGE NURSE ELISEO MADE AWARE OF TRANSFER. WILL GIVE REPORT TO NURSE IN ICU IN ABOUT AN HOUR.
[2019-08-06] MEDS ORDERED: LIDOCAINE 1% HCL (LOCAL ANESTH.) INJ 20ML MDV ONE (12:33)
[2019-08-06] MEDS ORDERED: fentaNYL Drip 2500mCg/250mlNS 250 ML IV SCH (14:06)
--- NOTE | 2019-08-06 14:53 | NUR ---
Report given to ICU nurse Wendy.
--- NOTE | 2019-08-06 15:14 | NUR ---
DR SAGASTUME CONTACTED RE: POST OP IV FLUID ORDERS - RECEIVED.
[2019-08-06] MEDS ORDERED: D5W/SOD CHL 0.45% 1,000 ML IV ONE (15:15)
--- NOTE | 2019-08-06 15:30 | NUR ---
PATIENT RECEIVED FROM OR PER BED ON VENTILATOR - ASSESSMENT COMPLETED - SEE ASSESSMENT FLOW SHEET. VERSED, AND FENTANYL INFUSING - SEE SPREAD SHEET. MIDLINE ABD INCISION COVERED WITH DRSG - SM AMT DRIED OSCAR RED DRELOISA NOTED - WILL MONITOR.
[2019-08-06] MEDS: PHENYLEPHRINE INJ 20 MG in SODIUM CHL 0.9% 250 ML IV SCH ×2 (15:45→20:05)
[2019-08-06] MEDS: fentaNYL Drip 2500mCg/250mlNS 250 ML IV SCH (15:45)
--- NOTE | 2019-08-06 16:19 | NUR ---
Nutrition Assessment Notes Est energy needs: 4151-7337 kcals ( 25-30 kcals/kg BW) Est protein needs: 61-76 gms/day (0.8-1.0 gm/kg BW) Will continue to monitor and reassess prn. Addendum: 08/06/19 at [address] Amended: Links added. Addendum: 08/07/19 at [address] New TPN Noted to begin TPN tonight at 43 ml/hr providing 1050 kcals and 50 g protein and 850 ncp. Pt is on propofol @ 6.831 providing 180 kcals from fats. The current TPN meets 54-64% kcals and 65-81% proteins with propofol on board Recommendation: Advance TPN support to meet more than 75% of needs
[2019-08-06] MEDS ORDERED: TPN PER PHARMACY 0 ML IV SCH ×2 (16:45→17:00)
--- NOTE | 2019-08-06 17:40 | NUR ---
DR Mark RODGERS VISITS AND EXAMINES PATIENT - ORDERS RECEIVED.
[2019-08-06 18:40] LABS: Basophils # (auto) 0 uL; Basophils % (auto) 0.2 % (0.0-2.0); Eosinophils # (auto) 0 uL; Eosinophils % (auto) 0.2 % (0.0-7.0); Hematocrit 43.2 % (36.0-46.0); Hemoglobin 14.5 g/dL (12.2-16.2); Lymphocytes # (auto) 0.5 uL; Lymphocytes % (auto) 6.1 % (10.0-50.0); Mean Corpuscular Hemoglobin 30.5 pg (28.0-32.0); Mean Corpuscular Hgb Conc. 33.6 g/dL (32.0-36.0); Mean Corpuscular Volume 90.8 fL (80.0-100.0); Monocytes # (auto) 0.8 uL; Monocytes % (auto) 8.6 % (0.0-12.0); Neutrophils # (auto) 7.5 uL; Neutrophils % (auto) 84.9 % (37.0-80.0); Nucleated Red Blood Cells % 0.1 %; Platelet Count (auto) 241 10^3/uL (140-450); Red Blood Cells 4.76 10^6/uL (4.0-5.20); Red Cell Distribution Width 13.2 % (11.8-14.3); White Blood Cell 8.8 10^3/uL (4.4-10.8)
[2019-08-06 19:00] LABS: BUN/Creatinine Ratio 15.6; Calcium 7.4 mg/dL (8.5-10.1); Potassium 3.9 mmol/L (3.5-5.1)
--- NOTE | 2019-08-06 19:00 | NUR ---
ENDORSED CARE TO MIRTA MOE.
--- NOTE | 2019-08-06 19:25 | NUR ---
LABS, VITALS INCLUDING ELEVATED TEMP OF 101.6 AND U.O. CALLED TO DR SAGASTUME - STEF KIRBY RN NOTIFIED.
[2019-08-06] MEDS ORDERED: FUROSEMIDE 20 MG/2 ML VIAL IV ONE (19:30)
[2019-08-06] MEDS: ALBUMIN 25% 50 ML IV SCH ×2 (19:30→23:26)
[2019-08-06] MEDS ORDERED: SODIUM CHLORIDE 0.9% 250 ML IV ONE (19:30)
--- NOTE | 2019-08-06 19:30 | NUR ---
OPENING NOTE: INTUBATED AND SEDATED. GRIMACES AND FURROWS EYE BROWS, OPENS EYES WITH DEEP STIMULATION. SINUS TACH, HR 120-140s. A LINE TO LEFT WRIST, AND NIBP TO LEFT CALF, LABILE BPs 90-160s. 7.0 ETT, 21 AT THE LIP. LS CTA, DIMINISHED TO BASES. THICK CREAMY ETT AND ORAL SECRETIONS. SpO2>95% ON CURRENT VENT SETTINGS. ABD ROUND, OBESE BUT SOFT. ABSENT BS. MIDLINE WITH ORIGINAL SURGICAL DRESSING, SOME OLD BREAKTHROUGH NOTED. NGT TO RIGHT NARE, PATENT + AIR BOLUS, PLACED TO LCS, BROWN/GREEN OUTPUT. SHANONN PATENT AND INTACT, DRAINING ARMOND URINE. UNABLE TO PALPATE OR DOPPLER RIGHT DORSALIS PEDIS. + LEFT DORSALIS PEDIS, AND BILATERAL POSTERIOR TIBIALIS VIA DOPPLER. EXTREMITIES COOL, AND SLIGHT MOTTLING NOTED TO DEPENDENT SURFACES. 22 G PIV TO RIGHT FOREARM, OCCLUDED, WILL REMOVE. LEFT SC TLC, CDI, AND PATENT WITH BLOOD RETURN. REINFORCED POC. MAINTAINED PATIENT SAFETY: BED LOCKED AND IN THE LOWEST POSITION, FREQUENT VISUAL CHECKS. NO FAMILY PRESENT AT THIS TIME. WILL CONT CARE
--- NOTE | 2019-08-06 19:30 | NUR ---
ORAL TEMP 101.6F - PLACED ON COOLING MEASURES
--- NOTE | 2019-08-06 19:30 | NUR ---
ALBUMIN IVPB GIVEN ORDERED
[2019-08-06] MEDS ORDERED: ALBUMIN 25% 50 ML IV ONE (19:31)
--- NOTE | 2019-08-06 19:45 | NUR ---
250 ML NS BOLUS GIVEN ORDERED
[2019-08-06] MEDS ORDERED: FUROSEMIDE 20 MG/2 ML VIAL ONE (19:58)
[2019-08-06 20:07] LABS: Albumin 1.9 g/dL (3.4-5.0); Bilirubin, Direct 0.5 mg/dL (0-0.2); Magnesium 1.3 mg/dL (1.6-2.6)
[2019-08-06 20:10] LABS: Total Protein 4.7 g/dL (6.4-8.2)
--- NOTE | 2019-08-06 20:13 | NUR ---
DR CARLSON NOTIFIED OF ABG FROM 1230 TODAY, VENT SETTINGS, PATIENT VITALS AND PLAN PER DR SAGASTUME - ORDERS RECEIVED - MIRTA MOE NOTIFIED.
--- NOTE | 2019-08-06 20:15 | NUR ---
LASIX IVP GIVEN ORDERED
--- NOTE | 2019-08-06 20:15 | NUR ---
RIGHT FOREARM 22 G PIV D/C'D: TIP INTACT.
--- NOTE | 2019-08-06 20:30 | NUR ---
URINE CULTURE SENT
[2019-08-06] MEDS: PROPOFOL 100 ML IV SCH (20:34)
[2019-08-06] MEDS: AMINO ACID INFUSION IN D10W 1,000 ML IV NR (20:34)
--- NOTE | 2019-08-06 20:45 | NUR ---
SPOKE WITH PT'S SON: AFTER PASSWORD VERIFIED, UPDATED ON PATIENT'S STATUS AND POC. ANSWERED ALL QUESTIONS ABLE
--- NOTE | 2019-08-06 21:00 | NUR ---
UNABLE TO COMPLETE SEDATION VACATION AT THIS TIME, REMAINS UNSTABLE Addendum: 08/07/19 at 0051 by Marie Coley RN RN Amended: Links added.
--- NOTE | 2019-08-06 21:50 | NUR ---
LAB AT BEDSIDE
--- NOTE | 2019-08-06 22:00 | NUR ---
RECTAL TEMP 101.8F - CONTINUE WITH COOLING MEASURES
[2019-08-06] MEDS: D5W/SOD CHL 0.45% 1,000 ML IV SCH (22:32)
[2019-08-06 23:17] LABS: INR 1.35 (0.9-1.15); Partial Thromboplastin Time 30.3 sec (23.64-32.05)
[2019-08-07] VITALS (104 sets, daily range): BP systolic 79–206; BP diastolic 37–133
--- NOTE | 2019-08-07 00:03 | NUR ---
PAGED ALTERATION MANAGER FOR DR. JOSEPH - TEMP REMAINS 101.5F DESPITE COOLING MEASURES
[2019-08-07] MEDS: metroNIDAZOLE 500MG/100ML 100 ML IV SCH (00:48)
--- NOTE | 2019-08-07 01:07 | NUR ---
SPOKE WITH DR. BURGER: NOTIFIED OF TEMPERATURE, SURGERY, INTERVENTIONS THUS FAR, AND NPO STATUS. ORDERS FOR 1 G IV ACETAMINOPHEN X1. ORDER READBACK AND VERIFIED.
[2019-08-07] MEDS ORDERED: ACETAMINOPHEN IV 1000 MG/100ML (10MG/ML) IV ONE (01:15)
--- NOTE | 2019-08-07 02:00 | NUR ---
ASKED HOUSE SUP FOR ABDOMINAL BINDER
--- NOTE | 2019-08-07 02:44 | NUR ---
TEMP DOWN TO 100F
[2019-08-07] MEDS: ALBUMIN 25% 50 ML IV SCH ×2 (03:13→06:49)
--- NOTE | 2019-08-07 04:30 | NUR ---
ABDOMINAL BINDER PLACED
--- NOTE | 2019-08-07 04:30 | NUR ---
BED BATH WITH CHG WIPES, ALBINA CARE, SHANNON CARE, ORAL CARE, HAIR CARE, AND FULL LINEN CHANGE COMPLETED
--- NOTE | 2019-08-07 06:00 | NUR ---
LEFT WRIST A-LINE EXTREMELY POSITIONAL
[2019-08-07] MEDS: InsuLIN REG 1unit/0.01ml Soln (100units/ml) SC SCH ×3 (06:25→18:27)
[2019-08-07] MEDS: ACCU-CHEK COMFORT CURVE STRIP VI SCH ×3 (06:25→18:26)
[2019-08-07] MEDS: D5W/SOD CHL 0.45% 1,000 ML IV SCH ×4 (06:25→22:55)
[2019-08-07 06:43] LABS: Basophils # (auto) 0 uL; Basophils % (auto) 0.3 % (0.0-2.0); Eosinophils # (auto) 0 uL; Eosinophils % (auto) 0.3 % (0.0-7.0); Hematocrit 31.2 % (36.0-46.0); Hemoglobin 10.4 g/dL (12.2-16.2); Lymphocytes # (auto) 0.9 uL; Lymphocytes % (auto) 7.6 % (10.0-50.0); Mean Corpuscular Hemoglobin 30.2 pg (28.0-32.0); Mean Corpuscular Hgb Conc. 33.3 g/dL (32.0-36.0); Mean Corpuscular Volume 90.9 fL (80.0-100.0); Monocytes # (auto) 1.1 uL; Monocytes % (auto) 8.8 % (0.0-12.0); Neutrophils # (auto) 10.2 uL; Platelet Count (auto) 168 10^3/uL (140-450); Red Blood Cells 3.43 10^6/uL (4.0-5.20); Red Cell Distribution Width 13.2 % (11.8-14.3); White Blood Cell 12.3 10^3/uL (4.4-10.8)
[2019-08-07] MEDS: PHENYLEPHRINE INJ 20 MG in SODIUM CHL 0.9% 250 ML IV SCH ×3 (06:48→20:45)
--- NOTE | 2019-08-07 06:49 | NUR ---
TEMP DOWN TO 98.1F - PLACED WARMING LAMP OVERHEAD AND BLANKETS ON.
[2019-08-07 06:57] LABS: INR 1.58 (0.9-1.15); Partial Thromboplastin Time 35.4 sec (23.64-32.05)
[2019-08-07 07:02] LABS: Potassium 3.2 mmol/L (3.5-5.1)
[2019-08-07 07:16] LABS: Albumin 2.3 g/dL (3.4-5.0); BUN/Creatinine Ratio 19.4; Bilirubin, Direct 0.3 mg/dL (0-0.2); Bilirubin, Total 0.8 mg/dL (0.2-1.0); Calcium 6.9 mg/dL (8.5-10.1); Magnesium 1.3 mg/dL (1.6-2.6); Total Protein 4.5 g/dL (6.4-8.2)
--- NOTE | 2019-08-07 07:30 | NUR ---
REPORT AND CARE ENDORSED TO ABHI CHEUNG
--- NOTE | 2019-08-07 07:40 | NUR ---
DR CARLSON VISITS AND EXAMINES PATIENT - ORDERS RECEIVED.
[2019-08-07] MEDS: PROPOFOL 100 ML IV SCH ×2 (07:54→20:30)
[2019-08-07] MEDS ORDERED: VANCOMYCIN PER PHARMACY 0 MG IV SCH (08:00)
--- NOTE | 2019-08-07 08:13 | NUR ---
LABS NOTED LOW K+ AND MAG - CALL PLACED TO DR RODGERS
[2019-08-07] MEDS ORDERED: MEROPENEM 1GM IVPB 100 ML IV ONE (08:15)
[2019-08-07] MEDS ORDERED: DEXTROSE (50%) 50ML SYRG IV SCH (08:15)
[2019-08-07] MEDS: fentaNYL Drip 2500mCg/250mlNS 250 ML IV SCH ×2 (08:45→20:30)
[2019-08-07] MEDS ORDERED: POTASSIUM CHL 20MEQ/100ML 100 ML IV ONE (09:00)
[2019-08-07] MEDS ORDERED: POTASSIUM CHL 20MEQ/100ML 100 ML IV SCH (09:00)
--- NOTE | 2019-08-07 09:00 | NUR ---
SEDATION VACATION HELD THIS AM. -PATIENT IN DEEP SEDATION LEVEL. COUGH/GAG REFLEX PRESENT - HYPO, DOES NOT WITHDRAW EXTREMITIES TO PAIN. PUPILS RT 3MM AND LEFT 2MM - BOTH SLUGGISH. Addendum: 08/07/19 at 1750 by Wendy Jackson RN Amended: Links added.
[2019-08-07] MEDS ORDERED: ENOXAPARIN SOD 40 MG/0.4 ML SYRINGE SC SCH (10:00)
[2019-08-07] MEDS ORDERED: PANTOPRAZOLE 40 MG/10 ML VIAL INJ IV SCH (10:00)
--- NOTE | 2019-08-07 10:15 | NUR ---
PATIENT'S FAMILY AT BEDSIDE- UPDATED ON PATIENT'S CONDITION - VERBALIZED UNDERSTANDING, ALL QUESTIONS ANSWERED.
[2019-08-07] MEDS: FAMOTIDINE (10MG/ML) 2ML VL IV SCH (10:50)
[2019-08-07] MEDS: MAGNESIUM SULFATE 1GM/100ML 100 ML IV SCH ×3 (10:51→13:19)
[2019-08-07] MEDS ORDERED: POTASSIUM CHL 10MEQ/100ML 100 ML IV ONE (11:00)
[2019-08-07] MEDS ORDERED: SODIUM PHOSPHATES 20 MEQ in SODIUM CHL 0.9% 100 ML IV ONE (12:15)
--- NOTE | 2019-08-07 12:15 | NUR ---
DR RODGERS VISITS ET EXAMINES PATIENT - INFORMED OF ELEVATED TEMP DURING HS AND NO RT DP PULSE. INFORMED OF PATIENT'S U.O. AND VITALS - ORDERS RECEIVED.
[2019-08-07] MEDS ORDERED: SODIUM PHOSPHATES 40 MEQ in D5W 5% 250 ML IV ONE (12:30)
--- NOTE | 2019-08-07 13:15 | NUR ---
DR NAVARRO VISITS - INFORMED OF PATIENT'S VITALS AND POST OP COURSE - NO ORDERS RECEIVED.
--- NOTE | 2019-08-07 13:45 | NUR ---
CALL PLACED TO DR RODGERS RE: ELEVATED TEMP FOR TYLENOL ORDER.
[2019-08-07] MEDS ORDERED: MEROPENEM 1GM IVPB 100 ML IV SCH ×2 (14:00→22:00)
[2019-08-07] MEDS ORDERED: SODIUM CHLORIDE 0.9% 1,000 ML IV ONE (14:15)
[2019-08-07] MEDS: VANCOMYCIN 1GM/250ML 250 ML IV SCH (14:45)
[2019-08-07] MEDS ORDERED: PHENYLEPHRINE IV 250 ML IV ONE (14:52)
--- NOTE | 2019-08-07 15:25 | NUR ---
DR SAGASTUME CONTACTED RE: PATIENT'S CONT'D ELEVATED TEMP - ORDERS RECEIVED.
--- NOTE | 2019-08-07 15:30 | NUR ---
PATIENT'S SON AND [id number] VISIT - UPDATED ON PATIENT'S VITALS AND PROGRESS - VERBALIZED UNDERSTANDING.
[2019-08-07] MEDS ORDERED: GENTAMICIN SULFATE 100 MG in D5W 5% 100 ML IV ONE (15:45)
--- NOTE | 2019-08-07 16:30 | NUR ---
ARTERIAL LINE NO LONGER GIVING ACCURATE READINGS DESPITE MULTIPLE ATTEMPTS AT REPOSITIONING - DISCONTINUED.
[2019-08-07] MEDS: ACETAMINOPHEN 650 MG RECT SUPP PR PRN ×2 (17:10→18:38)
[2019-08-07 18:26] LABS: Basophils # (auto) 0 uL; Basophils % (auto) 0.2 % (0.0-2.0); Eosinophils # (auto) 0.2 uL; Eosinophils % (auto) 1.4 % (0.0-7.0); Hematocrit 29.2 % (36.0-46.0); Hemoglobin 9.9 g/dL (12.2-16.2); Lymphocytes # (auto) 0.7 uL; Mean Corpuscular Hemoglobin 30.6 pg (28.0-32.0); Mean Corpuscular Hgb Conc. 33.9 g/dL (32.0-36.0); Mean Corpuscular Volume 90.3 fL (80.0-100.0); Monocytes # (auto) 1.4 uL; Monocytes % (auto) 10.1 % (0.0-12.0); Neutrophils # (auto) 11.4 uL; Neutrophils % (auto) 83.3 % (37.0-80.0); Platelet Count (auto) 146 10^3/uL (140-450); Red Blood Cells 3.23 10^6/uL (4.0-5.20); Red Cell Distribution Width 13.3 % (11.8-14.3); White Blood Cell 13.7 10^3/uL (4.4-10.8)
[2019-08-07 18:36] LABS: Albumin 2.2 g/dL (3.4-5.0); Bilirubin, Direct 0.3 mg/dL (0-0.2); Calcium 6.8 mg/dL (8.5-10.1); Potassium 3.6 mmol/L (3.5-5.1)
[2019-08-07 18:40] LABS: BUN/Creatinine Ratio 23.6; Bilirubin, Total 0.6 mg/dL (0.2-1.0); Total Protein 4.5 g/dL (6.4-8.2)
[2019-08-07 18:42] LABS: INR 1.58 (0.9-1.15); Partial Thromboplastin Time 40.2 sec (23.64-32.05)
--- NOTE | 2019-08-07 19:00 | NUR ---
CARE ENDORSED TO EVELIA MOE.
--- NOTE | 2019-08-07 19:05 | NUR ---
OPENING NOTE INTUBATED AND SEDATED ON FENT AND PROP. WITHDRAWALS TO DEEP PAIN. SR 80'S. A LINE REMOVAL SITE TO LEFT WRIST. NIBP PLACED TO LEFT WRIST W/ BP 120'S. 7.0 ETT, 22 AT THE LIP. DIMINISHED LUNG SOUNDS. SPO2 >100%. ABDOMAL MIDLINE WITH ORIGINAL SURGICAL DRESSING HAS OLD DRAINAGE. NGT TO RIGHT NARE PATENT TO LIS DRAINING GREEN OUTPUT. FOLAY PATENT DRAINING TO GRAVITY. LEFT TLC CATH CDI. TPN STARTED. BED LOCKED AND IN THE LOWEST POSITION. ALL FALL AND SAFETY PRECAUTIONS IN PLACE.
[2019-08-07] MEDS: AMINO ACID INFUSION IN D10W 1,000 ML IV NR (19:49)
[2019-08-07] MEDS ORDERED: TPN PER PHARMACY IV NR ×9 (20:00)
[2019-08-07] MEDS: MEROPENEM 1GM IVPB 100 ML IV SCH (20:30)
[2019-08-08] VITALS (79 sets, daily range): BP systolic 95–136; BP diastolic 32–55
[2019-08-08] MEDS: InsuLIN REG 1unit/0.01ml Soln (100units/ml) SC SCH ×4 (00:13→18:20)
[2019-08-08] MEDS: ACCU-CHEK COMFORT CURVE STRIP VI SCH ×4 (00:13→17:56)
--- NOTE | 2019-08-08 04:00 | NUR ---
COMPLETE BED BATH GIVEN CHG USED TO CLEAN PATIENT. SKIN REASSESSED AND NO NEW BREAK DOWN NOTED. COMPLETE LINENS CHANGED.
[2019-08-08 04:10] LABS: Basophils # (auto) 0 uL; Basophils % (auto) 0.1 % (0.0-2.0); Eosinophils # (auto) 0.3 uL; Eosinophils % (auto) 2.1 % (0.0-7.0); Hematocrit 28.7 % (36.0-46.0); Hemoglobin 9.7 g/dL (12.2-16.2); Lymphocytes # (auto) 0.6 uL; Lymphocytes % (auto) 4.3 % (10.0-50.0); Mean Corpuscular Hemoglobin 30.8 pg (28.0-32.0); Mean Corpuscular Hgb Conc. 33.9 g/dL (32.0-36.0); Mean Corpuscular Volume 90.8 fL (80.0-100.0); Monocytes # (auto) 1.1 uL; Monocytes % (auto) 7.5 % (0.0-12.0); Neutrophils # (auto) 12.8 uL; Platelet Count (auto) 147 10^3/uL (140-450); Red Blood Cells 3.16 10^6/uL (4.0-5.20); Red Cell Distribution Width 13.2 % (11.8-14.3); White Blood Cell 14.9 10^3/uL (4.4-10.8)
[2019-08-08] MEDS: MEROPENEM 1GM IVPB 100 ML IV SCH ×3 (04:12→19:33)
[2019-08-08 04:31] LABS: Calcium 6.9 mg/dL (8.5-10.1); Potassium 3.6 mmol/L (3.5-5.1)
[2019-08-08 04:39] LABS: Albumin 1.9 g/dL (3.4-5.0); BUN/Creatinine Ratio 24.4; Bilirubin, Direct 0.2 mg/dL (0-0.2); Bilirubin, Total 0.4 mg/dL (0.2-1.0); Phosphorus 2.4 mg/dL (2.5-4.90); Pre Albumin 7.8 mg/dL (20.0-40.0); Total Protein 4.5 g/dL (6.4-8.2)
[2019-08-08 04:48] LABS: INR 1.46 (0.9-1.15); Partial Thromboplastin Time 40.6 sec (23.64-32.05)
[2019-08-08] MEDS: PHENYLEPHRINE INJ 20 MG in SODIUM CHL 0.9% 250 ML IV SCH ×3 (05:25→22:05)
[2019-08-08] MEDS: D5W/SOD CHL 0.45% 1,000 ML IV SCH ×3 (05:44→18:55)
--- NOTE | 2019-08-08 09:00 | NUR ---
PATIENT IN DEEP SEDATION WITH HYPO COUGH/GAG REFLEX, EDVINRLA RT 3MM, LEFT 2MM - BOTH SLUGGISH, NO EXTREMITY WITHDRAWAL TO PAINFUL STIMULI. Addendum: 08/08/19 at 1851 by Wendy Jackson RN Amended: Links added.
--- NOTE | 2019-08-08 09:45 | NUR ---
CALL PLACED TO DR SAGASTUME RE: UPDATE ON ELEVATED WBC, ELEVATED TEMP LOW U.O. AND PATIENT'S SON - AWAITING RETURN CALL.
--- NOTE | 2019-08-08 10:15 | NUR ---
DR SAGASTUME RETURNS CALL - UPDATED ON ALL LABS, ABG'S, TEMP AND U.O. - ORDERS RECEIVED. ALSO SPOKE TO PATIENT'S SON RE: CURRENT PATIENT CONDITION AND POC - SON TEARFUL AND VERBALIZED AGREEMENT AND UNDERSTANDING. RT INFORMED OF CHANGE IN AC RATE ON VENT.
--- NOTE | 2019-08-08 10:25 | NUR ---
Respiratory note: RR CHANGED TO [address] SAGASTUME
[2019-08-08] MEDS: VANCOMYCIN 1GM/250ML 250 ML IV SCH (11:40)
[2019-08-08] MEDS: ENOXAPARIN SOD 40 MG/0.4 ML SYRINGE SC SCH (11:40)
[2019-08-08] MEDS: FAMOTIDINE (10MG/ML) 2ML VL IV SCH (11:40)
--- NOTE | 2019-08-08 11:45 | NUR ---
Dr. Kuhn visits and examines patient - orders received.
--- NOTE | 2019-08-08 12:00 | NUR ---
WOUND CARE NOTE: ADDED PATIENT TO SKIN INTEGRITY MONITORING D/T LOW EFREN SCORE OF 12/INTUBATION STATUS. PATIENT ADMITTED TO [facility] WITH DIAGNOSIS OF PARTIAL BOWEL OBSTRUCTION. CURRENT EFREN SCORE IS 12. PATIENT IS INTUBATED, SEDATED. SHE HAS A SURGICAL INCISION TO THE ABDOMEN D/T MAJOR ABDOMINAL SURGERY CONSISTING OF EXPLORATORY LAP, WITH LYSIS OF ADHESIONS, SMALL BOWEL RESECTION, ENTEROENTEROSTOMY. DRESSING TO WOUND IS CDI. SHE IS OTHERWISE WOUND FREE, WITH PINK, BLANCHABLE BONY PROMINENCES. PATIENT REPOSITIONED ONTO RIGHT SIDE, REDISTRIBUTING PRESSURE POINTS USING PILLOWS/WEDGES. RECOMMEND: FREQUENT TURN SCHEDULE Q 2 HOURS, PRN CONDITION PERMITS, WITH PRESSURE REDISTRIBUTION USING PILLOWS/WEDGES, BID/PRN APPLICATION WITH MOISTURE BARRIER CREAM, OPTIFOAM GENTLE SACRAL DRESSING PREVENTATIVE, SKIN/WOUND CARE PLAN, DIETARY CONSULT, CONTINUED MONITORING BY WOUND CARE TEAM.
--- NOTE | 2019-08-08 13:35 | NUR ---
visits and examines patient - no new orders received.
[2019-08-08] MEDS: metroNIDAZOLE 500MG/100ML 100 ML IV SCH ×2 (15:00→22:15)
[2019-08-08] MEDS: PROPOFOL 100 ML IV SCH (17:00)
[2019-08-08 18:14] LABS: Basophils # (auto) 0 uL; Basophils % (auto) 0.2 % (0.0-2.0); Eosinophils # (auto) 0.4 uL; Eosinophils % (auto) 2.3 % (0.0-7.0); Hematocrit 28.3 % (36.0-46.0); Hemoglobin 9.6 g/dL (12.2-16.2); Lymphocytes # (auto) 0.8 uL; Lymphocytes % (auto) 4.9 % (10.0-50.0); Mean Corpuscular Hemoglobin 30.9 pg (28.0-32.0); Mean Corpuscular Volume 90.7 fL (80.0-100.0); Monocytes # (auto) 1.4 uL; Monocytes % (auto) 8.6 % (0.0-12.0); Neutrophils # (auto) 13.9 uL; Nucleated Red Blood Cells % 0.1 %; Platelet Count (auto) 158 10^3/uL (140-450); Red Blood Cells 3.12 10^6/uL (4.0-5.20); Red Cell Distribution Width 13.1 % (11.8-14.3); White Blood Cell 16.5 10^3/uL (4.4-10.8)
[2019-08-08 18:20] LABS: Albumin 1.8 g/dL (3.4-5.0); Bilirubin, Direct 0.2 mg/dL (0-0.2); Calcium 7.1 mg/dL (8.5-10.1); Magnesium 1.9 mg/dL (1.6-2.6); Potassium 3.8 mmol/L (3.5-5.1)
[2019-08-08 18:24] LABS: BUN/Creatinine Ratio 25.9; Bilirubin, Total 0.3 mg/dL (0.2-1.0); Total Protein 4.4 g/dL (6.4-8.2)
[2019-08-08 18:27] LABS: INR 1.19 (0.9-1.15); Partial Thromboplastin Time 41.6 sec (23.64-32.05)
--- NOTE | 2019-08-08 19:00 | NUR ---
COOLING MEASURES APPLIED TO PATIENT THIS ENTIRE SHIFT FOR ELEVATED TEMPS OF 99.7 TO 100.3
--- NOTE | 2019-08-08 19:15 | NUR ---
CARE ENDORSED TO EVELIA - 1800 LABS REVIEWED.
--- NOTE | 2019-08-08 19:15 | NUR ---
OPENING NOTE RECEIVED REPORT ON ICU PATIENT. INTUBATED AND SEDATED ON FENT AND PROP. WITHDRAWALS TO DEEP PAIN. SR 80'S. BP 110'S. 7.0 ETT, 22 AT THE LIP. DIMINISHED LUNG SOUNDS. SPO2 >100%. ABDOMINAL MIDLINE WITH ORIGINAL SURGICAL DRESSING HAS OLD DRAINAGE. NGT TO RIGHT NARE PATENT TO LIS DRAINING GREEN OUTPUT. SHANNON PATENT DRAINING TO GRAVITY. LEFT TLC CATH CDI. NEW TPN STARTED. BED LOCKED AND IN THE LOWEST POSITION. ALL FALL AND SAFETY PRECAUTIONS IN PLACE.
[2019-08-08] MEDS: fentaNYL Drip 2500mCg/250mlNS 250 ML IV SCH (19:19)
[2019-08-08] MEDS ORDERED: TPN PER PHARMACY IV NR ×10 (20:00)
[2019-08-08] MEDS ORDERED: metroNIDAZOLE 500MG/100ML 100 ML IV ONE (22:04)
[2019-08-09] VITALS (102 sets, daily range): BP systolic 100–144; BP diastolic 34–77
[2019-08-09] MEDS: ACCU-CHEK COMFORT CURVE STRIP VI SCH ×4 (00:17→17:38)
[2019-08-09] MEDS: InsuLIN REG 1unit/0.01ml Soln (100units/ml) SC SCH ×4 (00:17→17:38)
[2019-08-09] MEDS: PROPOFOL 100 ML IV SCH ×3 (01:56→16:20)
[2019-08-09] MEDS: D5W/SOD CHL 0.45% 1,000 ML IV SCH ×4 (01:56→23:23)
[2019-08-09] MEDS: MEROPENEM 1GM IVPB 100 ML IV SCH ×3 (04:00→20:00)
--- NOTE | 2019-08-09 04:00 | NUR ---
COMPLETE BED BATH GIVEN CHG USED TO CLEAN PATIENT. SKIN REASSESSED AND NO NEW BREAK DOWN NOTED. COMPLETE LINENS CHANGED.
[2019-08-09 04:04] LABS: Basophils # (auto) 0 uL; Basophils % (auto) 0.2 % (0.0-2.0); Eosinophils # (auto) 0.4 uL; Eosinophils % (auto) 2.6 % (0.0-7.0); Hematocrit 26.8 % (36.0-46.0); Hemoglobin 9.2 g/dL (12.2-16.2); Lymphocytes # (auto) 0.8 uL; Lymphocytes % (auto) 5.3 % (10.0-50.0); Mean Corpuscular Hemoglobin 30.8 pg (28.0-32.0); Mean Corpuscular Hgb Conc. 34.2 g/dL (32.0-36.0); Mean Corpuscular Volume 90.1 fL (80.0-100.0); Monocytes # (auto) 1.3 uL; Monocytes % (auto) 8.3 % (0.0-12.0); Neutrophils # (auto) 13.1 uL; Neutrophils % (auto) 83.6 % (37.0-80.0); Platelet Count (auto) 163 10^3/uL (140-450); Red Blood Cells 2.97 10^6/uL (4.0-5.20); Red Cell Distribution Width 12.5 % (11.8-14.3); White Blood Cell 15.7 10^3/uL (4.4-10.8)
[2019-08-09 04:15] LABS: INR 1.12 (0.9-1.15); Partial Thromboplastin Time 38.3 sec (23.64-32.05)
[2019-08-09 04:25] LABS: Albumin 1.6 g/dL (3.4-5.0); Magnesium 1.9 mg/dL (1.6-2.6); Potassium 3.9 mmol/L (3.5-5.1)
[2019-08-09 04:28] LABS: BUN/Creatinine Ratio 26.2; Bilirubin, Total 0.3 mg/dL (0.2-1.0); Phosphorus 2.1 mg/dL (2.5-4.90); Total Protein 4.3 g/dL (6.4-8.2)
[2019-08-09] MEDS: fentaNYL Drip 2500mCg/250mlNS 250 ML IV SCH ×3 (05:27→17:49)
[2019-08-09] MEDS: metroNIDAZOLE 500MG/100ML 100 ML IV SCH ×3 (06:03→23:13)
[2019-08-09] MEDS: PHENYLEPHRINE INJ 20 MG in SODIUM CHL 0.9% 250 ML IV SCH ×3 (06:15→23:05)
--- NOTE | 2019-08-09 07:49 | NUR ---
SHIFT OPENING NOTE PATIENT ON MECHANICAL VENTILATOR, SEDATED WITH FENTANYL AND PROPOFOL, LUNGS CLEAR THROUGHOUT, ABDOMINAL BINDER WITH MIDLINE SURGICAL INCISION, ABSENT BOWEL SOUNDS, NGT PATENT. SHANNON DRAINING YELLOW URINE, SCD'S BILATERALLY. SKIN INTEGRITY SEE INTERVENTION
--- NOTE | 2019-08-09 08:22 | NUR ---
FAMILY DAUGHTER IN LAW DAVIDE AT BEDSIDE. UPDATED ON PATIENT STATUS. ALL QUESTIONS AND CONCERNS ADDRESSED AT THIS TIME
[2019-08-09] MEDS: FAMOTIDINE (10MG/ML) 2ML VL IV SCH (09:40)
[2019-08-09] MEDS: VANCOMYCIN 1GM/250ML 250 ML IV SCH (09:40)
[2019-08-09] MEDS: ENOXAPARIN SOD 40 MG/0.4 ML SYRINGE SC SCH (09:40)
[2019-08-09] MEDS ORDERED: SODIUM PHOSP 20MEQ(15MMOL) IN NS 100 ML IV ONE (10:00)
--- NOTE | 2019-08-09 11:00 | NUR ---
Nutrition Consult and Follow-up Notes Wt.: 90.5 kg today/ Pt's intubated, sedated, no immediate family member at bedside during rounds this morning. Pt's s/p explor lap (08/06/19), currently sedated with Propofol @ 9.108 ml/hr providing 240 kcal from Fat. Pt's NPO with PN support @ 53 ml/hr providing 1260 kcal, 60 gms pro and 1020 NPCs. Pt with adequate PN support d/t mod initiation rate delivery of concentrated formula aeb current PN infusion meet 83% to 91% of est caloric needs (with Propofol on board) and 72% to 91% of est protein needs. Noted pt's to receive tonight another TPN @ 61 ml/hr providing 1570 kcal, 70 gms pro, 1290 NPCs and 6% Fat. Est. Needs: 1650 kcal to 1800 kcal (18-20 kcal/kgBW), 66 gms to 83 gms pro (1.2-1.5 gms/kgIBW: 55 kg). Will continue to monitor pertinent labs and reassess nutrient need prn Labs: Gluc 254 H, Na 130 L, BUN 22 H, Ca 7.9 L, Phos 2.1 L, AST 10 L, ALT 10 L, Tpro 4.3 L, Alb 1.6 L, Prealb 7.8 L, Trig 69 wnl Skin: Zaire scale 12, high risk, pt's medial abdomen incision dry and intact per body masker. GI: Pt had 1 BM 08/03/19 had 100 ml gastric drainage output this morning. per body masker. PES: Increased nutrient needs r/t acute/chronic medical condition aeb intubated, sedated, s/p surgery, severe hypoalbuminemia, NPO with PN support. Altered nutrition related lab values r/t current/chronic medical condition aeb hyperglycemia, hyponatremia, elev. renal labs, low LFTs, Phos and severe hypoalbuminemia Obesity r/t food intake more than body requirement aeb % IBW, BMI kg/m2 and increased body adiposity Will continue to monitor NPO status, PN tolerance, skin status, pertinent labs and weight trend. F/u in 2 to 3 days. Rec.: 1.) If still NPO, continue PN support that meets at least 75% of est nutrient needs. 2.) Advance gradually to oral diet when medically appropriate. 3.) Refer pt to CDE/RD for further nutrition education and weight monitoring upon discharge. 4.) Continue current plan of care. Thank you for this consult.
--- NOTE | 2019-08-09 11:01 | NUR ---
ORAL CARE PERFORMED PATIENT TOLERATED WELL
--- NOTE | 2019-08-09 13:15 | NUR ---
ULTRASOUND AT BEDSIDE FOR PARACENTESIS Addendum: 08/09/19 at 1349 by Dragan Saldana RN WRONG PATIENT
[2019-08-09] MEDS ORDERED: metroNIDAZOLE 500MG/100ML 100 ML IV ONE ×2 (13:43→23:13)
--- NOTE | 2019-08-09 14:11 | NUR ---
DR. ROLLINS AT BEDSIDE
--- NOTE | 2019-08-09 14:16 | NUR ---
DR. SAGASTUME PAGELinus
[2019-08-09] MEDS ORDERED: BUMETANIDE 2.5mg/10ml (0.25 mg/ml) INJ IV ONE (14:45)
--- NOTE | 2019-08-09 15:14 | NUR ---
MELECIO BRAR AT BEDSIDE UPDATED ON PATIENT STATUS. ALL QUESTIONS AND CONCERNS ADDRESSED AT THIS TIME
--- NOTE | 2019-08-09 19:10 | NUR ---
OPENING NOTE RECEIVED REPORT ON ICU PATIENT. INTUBATED AND SEDATED ON FENT AND PROP. WITHDRAWALS TO DEEP PAIN. SR 90'S. BP 130'S. 7.0 ETT, 22 AT THE LIP. SPO2 >98%. ABDOMINAL MIDLINE WITH ORIGINAL SURGICAL DRESSING HAS OLD DRAINAGE INTACT. NGT TO RIGHT NARE PATENT TO LIS DRAINING GREEN OUTPUT. SHANNON PATENT DRAINING TO GRAVITY. LEFT TLC CATH CDI. NEW TPN STARTED. BED LOCKED AND IN THE LOWEST POSITION. ALL FALL AND SAFETY PRECAUTIONS IN PLACE. FOR MORE INFORMATION SEE INTERVENTIONS. FOR GTTS AND THEIR TITRATIONS SEE IV SPREAD SHEET.
[2019-08-09] MEDS ORDERED: TPN PER PHARMACY IV NR ×11 (20:00)
[2019-08-10] VITALS (102 sets, daily range): BP systolic 89–192; BP diastolic 34–91
[2019-08-10] MEDS: ACCU-CHEK COMFORT CURVE STRIP VI SCH ×5 (00:08→23:48)
[2019-08-10] MEDS: InsuLIN REG 1unit/0.01ml Soln (100units/ml) SC SCH ×5 (00:08→23:48)
[2019-08-10 04:14] LABS: Potassium 3.7 mmol/L (3.5-5.1)
[2019-08-10] MEDS: D5W/SOD CHL 0.45% 1,000 ML IV SCH ×2 (04:15→11:09)
[2019-08-10 04:21] LABS: Albumin 1.4 g/dL (3.4-5.0); BUN/Creatinine Ratio 26.7; Bilirubin, Total 0.3 mg/dL (0.2-1.0); Magnesium 1.9 mg/dL (1.6-2.6); Phosphorus 3.3 mg/dL (2.5-4.90); Total Protein 4.3 g/dL (6.4-8.2)
[2019-08-10] MEDS: MEROPENEM 1GM IVPB 100 ML IV SCH ×3 (04:26→19:58)
--- NOTE | 2019-08-10 05:21 | NUR ---
COMPLETE BED BATH GIVEN CHG USED TO CLEAN PATIENT. SKIN REASSESSED AND NO NEW BREAK DOWN NOTED. COMPLETE LINENS CHANGED.
[2019-08-10] MEDS: metroNIDAZOLE 500MG/100ML 100 ML IV SCH ×3 (06:00→23:15)
--- NOTE | 2019-08-10 06:49 | NUR ---
SEDATION INCREASED PATIENT BECAME HYPERTENSIVE SBP 188. FACE WAS RED. VENTILATOR ALARMING SHOWING INCREASED PRESSURE. PATIENT STATING 84% FIO2. INCREASED PROPOFOL.
[2019-08-10] MEDS: PHENYLEPHRINE INJ 20 MG in SODIUM CHL 0.9% 250 ML IV SCH ×2 (07:25→15:45)
--- NOTE | 2019-08-10 09:00 | NUR ---
SEDATION VACATION; Patient not tolerating abrupt decreases in sedation, plan to slowly decrease sedation as tolerated by patient. Addendum: 08/10/19 at 1111 by Jose De Jesus Conteh RN Amended: Links added.
--- NOTE | 2019-08-10 09:10 | NUR ---
FAMILY; Patient's daughter in law at bedside. Updated her on patient condition, informed her that plan for today is to include possible weaning trail. Verbalized understanding.
[2019-08-10] MEDS: hydrALAZINE HCL 20 MG/ML VL IV PRN (11:00)
[2019-08-10] MEDS: VANCOMYCIN 1GM/250ML 250 ML IV SCH (11:08)
[2019-08-10] MEDS: FAMOTIDINE (10MG/ML) 2ML VL IV SCH (11:09)
[2019-08-10] MEDS: ENOXAPARIN SOD 40 MG/0.4 ML SYRINGE SC SCH (11:09)
[2019-08-10] MEDS ORDERED: BUMETANIDE 2.5mg/10ml (0.25 mg/ml) INJ IV ONE (12:15)
[2019-08-10] MEDS: LABETALOL HCL 5 MG/ML ML 20ML VIAL IV PRN ×2 (12:15→21:45)
[2019-08-10] MEDS: MICAFUNGIN SODIUM 100 MG in SODIUM CHL 0.9% 100 ML IV SCH (15:30)
[2019-08-10] MEDS: DexMEDEtomidine 400 MCG in D5W 5% 96 ML IV SCH (15:30)
--- NOTE | 2019-08-10 17:20 | NUR ---
Assessment Pt is an 84 yr old intubated female. Pt's son and daughter in law, Messi and Mary Jane were bedside and answered questions on pt's behalf. Pt lives with Messi and Mary Jane, who are her emergency contacts at [phone] or [phone]. Prior to admit, pt was ambulatory and independent with ADL's. Pt admitted with abdominal pain and intestinal blockage. Pt receives financial support from family and doesn't have and AD. Pt's family can transport home upon d/c. Further needs will be assessed closer to d/c. Addendum: 08/10/19 at 1723 by EVAN GOMEZ Amended: Links added.
[2019-08-10] MEDS ORDERED: metroNIDAZOLE 500MG/100ML 100 ML IV ONE ×2 (18:23→21:40)
[2019-08-10 19:28] LABS: Hematocrit 29.5 % (36.0-46.0); Hemoglobin 10.2 g/dL (12.2-16.2); Mean Corpuscular Hemoglobin 30.9 pg (28.0-32.0); Mean Corpuscular Hgb Conc. 34.6 g/dL (32.0-36.0); Mean Corpuscular Volume 89.3 fL (80.0-100.0); Platelet Count (auto) 235 10^3/uL (140-450); Red Cell Distribution Width 12.8 % (11.8-14.3)
[2019-08-10 19:32] LABS: Basophils % (manual) 0 (0.0-2.0); Blast Cells 0; Eosinophils % (manual) 0 (0-7); Promyelocytes % 0; Reactive Lymphocytes 0
[2019-08-10 19:38] LABS: Albumin 1.5 g/dL (3.4-5.0); Calcium 7.5 mg/dL (8.5-10.1); Magnesium 1.8 mg/dL (1.6-2.6); Potassium 3.7 mmol/L (3.5-5.1)
[2019-08-10 19:42] LABS: BUN/Creatinine Ratio 30.7; Bilirubin, Direct 0.2 mg/dL (0-0.2); Bilirubin, Total 0.3 mg/dL (0.2-1.0); Total Protein 4.7 g/dL (6.4-8.2)
[2019-08-10 19:46] LABS: INR 1.08 (0.9-1.15); Partial Thromboplastin Time 32.2 sec (23.64-32.05)
[2019-08-10] MEDS ORDERED: TPN PER PHARMACY IV NR ×11 (20:00)
[2019-08-10] MEDS: PROPOFOL 100 ML IV SCH (20:13)
[2019-08-10 21:14] LABS: Band Neutrophils % (manual) 1; Lymphocytes % (manual) 5 (10.0-50.0); Metamyelocytes % 3; Monocytes % (manual) 9 (0-12); Myelocytes % 1
--- NOTE | 2019-08-10 23:50 | NUR ---
NEURO STATUS PATIENT IS AWAKE, NODS THE HEAD TO YES OR NO QUESTIONS. RESISTANT TO CARE.BP 192/74 MMHG. WAIT FOR THE NEXT BP TO GIVE PRN MEDS. INCREASED THE PRECEDEX DRIP.
[2019-08-11] VITALS (87 sets, daily range): BP systolic 84–195; BP diastolic 39–75
[2019-08-11] MEDS: PHENYLEPHRINE INJ 20 MG in SODIUM CHL 0.9% 250 ML IV SCH ×3 (00:05→16:23)
[2019-08-11] MEDS: MEROPENEM 1GM IVPB 100 ML IV SCH ×3 (03:42→20:48)
[2019-08-11] MEDS: ACCU-CHEK COMFORT CURVE STRIP VI SCH ×4 (05:52→23:51)
[2019-08-11] MEDS: InsuLIN REG 1unit/0.01ml Soln (100units/ml) SC SCH ×4 (05:53→23:51)
[2019-08-11] MEDS ORDERED: metroNIDAZOLE 500MG/100ML 100 ML IV ONE (05:56)
[2019-08-11] MEDS: hydrALAZINE HCL 20 MG/ML VL IV PRN ×3 (05:57→20:55)
[2019-08-11 06:02] LABS: Hematocrit 28.5 % (36.0-46.0); Mean Corpuscular Hemoglobin 30.8 pg (28.0-32.0); Mean Corpuscular Volume 88.1 fL (80.0-100.0); Platelet Count (auto) 252 10^3/uL (140-450); Red Blood Cells 3.24 10^6/uL (4.0-5.20); Red Cell Distribution Width 12.9 % (11.8-14.3)
[2019-08-11 06:13] LABS: INR 1.04 (0.9-1.15); Partial Thromboplastin Time 30.3 sec (23.64-32.05)
[2019-08-11 06:20] LABS: Albumin 1.5 g/dL (3.4-5.0); Calcium 7.7 mg/dL (8.5-10.1); Potassium 3.8 mmol/L (3.5-5.1)
[2019-08-11 06:26] LABS: BUN/Creatinine Ratio 32.2; Bilirubin, Direct 0.2 mg/dL (0-0.2); Bilirubin, Total 0.4 mg/dL (0.2-1.0); Phosphorus 3.4 mg/dL (2.5-4.90); Total Protein 4.7 g/dL (6.4-8.2)
[2019-08-11 06:38] LABS: Basophils % (manual) 0 (0.0-2.0); Promyelocytes % 0; Reactive Lymphocytes 0
[2019-08-11 06:40] LABS: Blast Cells 0
[2019-08-11] MEDS: metroNIDAZOLE 500MG/100ML 100 ML IV SCH (06:41)
[2019-08-11 06:58] LABS: Band Neutrophils % (manual) 1; Eosinophils % (manual) 1 (0-7); Lymphocytes % (manual) 3 (10.0-50.0); Metamyelocytes % 1; Monocytes % (manual) 12 (0-12); Myelocytes % 1
[2019-08-11] MEDS: DexMEDEtomidine 400 MCG in D5W 5% 96 ML IV SCH (08:27)
--- NOTE | 2019-08-11 08:55 | NUR ---
PATIENTS DAUGHTER IN LAW AT BEDSIDE UPDATED ON STATUS AND PLAN OF CARE
[2019-08-11] MEDS: MICAFUNGIN SODIUM 100 MG in SODIUM CHL 0.9% 100 ML IV SCH (10:01)
[2019-08-11] MEDS: FAMOTIDINE (10MG/ML) 2ML VL IV SCH (10:01)
[2019-08-11] MEDS: ENOXAPARIN SOD 40 MG/0.4 ML SYRINGE SC SCH (10:02)
[2019-08-11] MEDS: VANCOMYCIN 1GM/250ML 250 ML IV SCH (11:00)
--- NOTE | 2019-08-11 11:28 | NUR ---
Nutrition Follow-up Notes Wt.: 90.4 kg Pt's intubated, sedated, no immediate family member at bedside during rounds this morning. Pt's s/p explor lap (08/06/19), currently sedated. Pt's NPO with PN support @ 63 ml/hr providing 1540 kcal, 80 gms pro and 1220 NPCs. Pt with adequate PN support d/t mod initiation rate delivery of concentrated formula aeb current PN infusion meet 85% to 93% of est caloric needs and 96-121% of est protein needs. Est. Needs: 1650 kcal to 1800 kcal (18-20 kcal/kgBW), 66 gms to 83 gms pro (1.2-1.5 gms/kgIBW: 55 kg). Will continue to monitor pertinent labs and reassess nutrient need prn Labs: BUN 29 H, GLU 166 H. ALB 1.5 L,CA 7.7 L, PREALB 8.0 L. Skin: Zaire scale 11, high risk, pt's medial abdomen incision dry and intact per documentation clerk. GI: Pt had 1 BM 08/03/19 had 300 ml gastric drainage output this morning. per documentation clerk. PES: Increased nutrient needs r/t acute/chronic medical condition aeb intubated, sedated, s/p surgery, severe hypoalbuminemia, NPO with PN support. Altered nutrition related lab values r/t current/chronic medical condition aeb hyperglycemia, hyponatremia, elev. renal labs, low LFTs, Phos and severe hypoalbuminemia Obesity r/t food intake more than body requirement aeb % IBW, BMI kg/m2 and increased body adiposity Will continue to monitor NPO status, PN tolerance, skin status, pertinent labs and weight trend. F/u in 2 to 3 days. Rec.: 1.) If still NPO, continue PN support that meets at least 75% of est nutrient needs. 2.) Advance gradually to oral diet when medically appropriate. 3.) Refer pt to CDE/RD for further nutrition education and weight monitoring upon discharge. 4.) Continue current plan of care.
[2019-08-11] MEDS ORDERED: BUMETANIDE 2.5mg/10ml (0.25 mg/ml) INJ IV ONE (13:30)
[2019-08-11] MEDS ORDERED: POTASSIUM CHL 20MEQ/100ML 100 ML IV ONE (13:30)
--- NOTE | 2019-08-11 13:30 | NUR ---
DR SHOEMAKER AT BEDSIDE DISCUSSED PATIENTS STATUS AN PLAN OF CARE- NEW ORDERS PLACED
[2019-08-11] MEDS: LABETALOL HCL 5 MG/ML 4ML SYRINGE IV SCH ×2 (13:45→21:58)
--- NOTE | 2019-08-11 13:48 | NUR ---
PATIENT PLACED ON CPAP BY RESPIRATORY THERAPIST VITALS REMAINED STABLE. WITHIN VIEW OF NURSES STATION. WILL CONTINUE TO MONITOR
--- NOTE | 2019-08-11 14:13 | NUR ---
DR RIVERA AT BEDSIDE DISCUSSED PLAN OF CARE WITH PATIENTS SON, AND DAUGHTER IN LAW.
[2019-08-11] MEDS: fentaNYL Drip 2500mCg/250mlNS 250 ML IV SCH (14:16)
--- NOTE | 2019-08-11 15:05 | NUR ---
PATIENT EXTUBATED PER DR RIVERA ORDERS PLACED ON COOL MIST MASK, VITALS STABLE. FAMILY AT BEDSIDE. WITHIN VIEW OF NURSES STATION
--- NOTE | 2019-08-11 17:01 | NUR ---
TEMPERATURE RECTAL TEMPERATURE READING 100.2, COOLING MEASURES APPLIED. WILL CONTINUE TO MONITOR
[2019-08-11] MEDS: LABETALOL HCL 5 MG/ML ML 20ML VIAL IV PRN (19:24)
[2019-08-11] MEDS ORDERED: TPN PER PHARMACY IV NR ×12 (20:00)
[2019-08-11] MEDS: PROPOFOL 100 ML IV SCH (20:13)
[2019-08-11] MEDS: MORPHINE SULF INJ 2 MG/ML SYRINGE 1ML IV PRN (20:54)
[2019-08-12] VITALS (39 sets, daily range): BP systolic 152–198; BP diastolic 52–80
--- NOTE | 2019-08-12 | NUR ---
Patient bathe/linen change Patient given complete bath with chlorhexidine wipes. Skin integrity assessed for any changes. Linens changed. Patient repositioned for comfort.
[2019-08-12] MEDS: MORPHINE SULF INJ 2 MG/ML SYRINGE 1ML IV PRN ×5 (00:33→22:05)
--- NOTE | 2019-08-12 01:00 | NUR ---
SUCTION DEEP TRACHEAL SUCTION DONE. LARGE AMOUNT OF THICK CREAMY SECRETIONS DRAINED.
[2019-08-12] MEDS: PHENYLEPHRINE INJ 20 MG in SODIUM CHL 0.9% 250 ML IV SCH ×3 (01:05→16:02)
[2019-08-12] MEDS: LABETALOL HCL 5 MG/ML ML 20ML VIAL IV PRN ×3 (01:34→22:01)
[2019-08-12] MEDS: MEROPENEM 1GM IVPB 100 ML IV SCH ×3 (04:01→21:10)
[2019-08-12] MEDS: hydrALAZINE HCL 20 MG/ML VL IV PRN ×2 (04:01→11:49)
--- NOTE | 2019-08-12 04:45 | NUR ---
SUCTION ORAL TRACHEAL SUCTION DONE. LARGE AMOUNT OF THICK CREAMY SECRETIONS DRAINED.
[2019-08-12 05:17] LABS: Albumin 1.6 g/dL (3.4-5.0); Potassium 3.6 mmol/L (3.5-5.1)
[2019-08-12 05:21] LABS: Bilirubin, Total 0.4 mg/dL (0.2-1.0); Phosphorus 3.4 mg/dL (2.5-4.90); Total Protein 5.1 g/dL (6.4-8.2)
[2019-08-12] MEDS: LABETALOL HCL 5 MG/ML 4ML SYRINGE IV SCH ×3 (06:07→22:00)
[2019-08-12] MEDS: InsuLIN REG 1unit/0.01ml Soln (100units/ml) SC SCH ×3 (06:34→17:55)
[2019-08-12] MEDS: ACCU-CHEK COMFORT CURVE STRIP VI SCH ×3 (06:34→17:50)
--- NOTE | 2019-08-12 07:35 | NUR ---
REPORT REPORT RECEIVED FROM [facility] NURSE. PLAN OF CARE REVIEWED. BEDSIDE ROUNDS MADE.
--- NOTE | 2019-08-12 08:00 | NUR ---
Cooling Measures applied. Patient currently has temp of 99.5 , cooling measures in place.
[2019-08-12] MEDS: DexMEDEtomidine 400 MCG in D5W 5% 96 ML IV SCH (08:18)
[2019-08-12] MEDS: FAMOTIDINE (10MG/ML) 2ML VL IV SCH (09:00)
[2019-08-12] MEDS: FLUCONAZOLE 200MG/100ML 100 ML IV SCH ×2 (09:00→10:54)
[2019-08-12] MEDS: VANCOMYCIN 1GM/250ML 250 ML IV SCH (09:00)
--- NOTE | 2019-08-12 09:00 | NUR ---
Family updated on pt status Family of GARRYAnabelKEENA updated on patient's status and condition. All questions and concerns addressed. Son verbalized understanding. Son assisted with translation. Patient nonverbal at this time but nods head appropriately to all questions. Patient noted to have a weak cough at this time. Aspiration precautions in place.
[2019-08-12 09:38] LABS: Hematocrit 30.7 % (36.0-46.0); Hemoglobin 10.5 g/dL (12.2-16.2); Mean Corpuscular Hemoglobin 30.3 pg (28.0-32.0); Mean Corpuscular Hgb Conc. 34.2 g/dL (32.0-36.0); Mean Corpuscular Volume 88.4 fL (80.0-100.0); Platelet Count (auto) 331 10^3/uL (140-450); Red Blood Cells 3.48 10^6/uL (4.0-5.20); White Blood Cell 14.7 10^3/uL (4.4-10.8)
[2019-08-12 09:40] LABS: Basophils % (manual) 0 (0.0-2.0); Blast Cells 0; Eosinophils % (manual) 0 (0-7); Promyelocytes % 0; Reactive Lymphocytes 0
--- NOTE | 2019-08-12 09:45 | NUR ---
PAGED DR. SHOEMAKER PAGED TO NOTIFY PATIENTS BP 190/80'S. PRN GIVEN, BP REMAINS HIGH. AWAITING CALLBACK.
[2019-08-12 10:20] LABS: Band Neutrophils % (manual) 1; Lymphocytes % (manual) 4 (10.0-50.0); Metamyelocytes % 3; Monocytes % (manual) 7 (0-12); Myelocytes % 2
[2019-08-12] MEDS: ENOXAPARIN SOD 40 MG/0.4 ML SYRINGE SC SCH (11:48)
[2019-08-12] MEDS: fentaNYL Drip 2500mCg/250mlNS 250 ML IV SCH (11:49)
--- NOTE | 2019-08-12 12:11 | NUR ---
Dr. Irwin at bedside notified of gastric output from Ng per noc shift and current output of approx 200cc dark brown/ gastric output with no bowel sounds noted. assessed abd. at bedside. Per md no new orders at this time. Physical therapy to be held at this time due to hypertension. Addendum: 08/12/19 at 1216 by Renu Dawson RN Per , midni to leave surgical incision open to air. Midline incision to abd. well approximated, with hang intact, no redness or drainage noted. Incision cleansed with chlorhexidine swab and placed ABD over area to protect skin from abd. ajay. Son at bedside able to translate to patient. Patient tolerated well.
--- NOTE | 2019-08-12 14:51 | NUR ---
STATUS PATIENT CURRENTLY RESTING. NO DISTRESS NOTED. PT REMAINS ON 2L/MIN NC.
--- NOTE | 2019-08-12 15:28 | NUR ---
PAGED DR. SHOEMAKER PAGED RE: PATIENTS NEURO STATUS, PATIENT IS NON ARMENIAN SPEAKING, ANSWERS QUESTIONS APPROPRIATELY BY NODDING HEADING BUT UNABLE TO VERBALIZE . PAGED AND CALLED BACK. NEW ORDERS IN PLACE.
--- NOTE | 2019-08-12 16:04 | NUR ---
PATIENT TAKEN FOR HEAD CT VIA BED WITH PORTABLE MONITOR AND PORTABLE 02. Addendum: 08/12/19 at 1653 by Renu Dawson RN 1630- PATIENT RETURNED WITHOUT INCIDENT.
[2019-08-12] MEDS: cloNIDine 0.2 mg/24hr 7DAY PATCH TD SCH (16:30)
--- NOTE | 2019-08-12 16:45 | NUR ---
AT BEDSIDE DR. SHOEMAKER UPDATED ON PATIENTS STATUS. NEW ORDERS IN PLACE. Addendum: 08/12/19 at 1654 by Renu Dawson RN UPDATED SON AND DAUGHTER IN LAW AT BEDSIDE. QUESTIONS AND CONCERNS ADDRESSED.
[2019-08-12] MEDS: FUROSEMIDE 20 MG/2 ML VIAL IV SCH (17:50)
--- NOTE | 2019-08-12 19:00 | NUR ---
Opening notes Assumed care, laying on bed with her eyes closed but responds to voice spontaneously, still nonverbal, on O2 @ 2L/min per nasal cannula, SPO2 98%, coarse lung sounds noted with thick and creamy secretions orally, NGT connected to LCS, still draining to dark brown output, midline incision is dry, still with hang, abdominal binder on, generalized edema noted. Bed in lowest position with side rails up, bed alarm on. Will continue care and monitoring.
[2019-08-12] MEDS ORDERED: TPN PER PHARMACY IV NR ×11 (20:00)
[2019-08-12] MEDS: PROPOFOL 100 ML IV SCH (20:13)
[2019-08-13] VITALS (23 sets, daily range): BP systolic 142–188; BP diastolic 59–85
[2019-08-13] MEDS: PHENYLEPHRINE INJ 20 MG in SODIUM CHL 0.9% 250 ML IV SCH ×2 (02:05→10:25)
[2019-08-13 03:58] LABS: Hematocrit 30.8 % (36.0-46.0); Hemoglobin 10.5 g/dL (12.2-16.2); Mean Corpuscular Hemoglobin 29.9 pg (28.0-32.0); Platelet Count (auto) 399 10^3/uL (140-450); Red Cell Distribution Width 12.7 % (11.8-14.3)
[2019-08-13 04:12] LABS: Albumin 1.7 g/dL (3.4-5.0); Calcium 8.2 mg/dL (8.5-10.1); Magnesium 2.2 mg/dL (1.6-2.6); Potassium 3.7 mmol/L (3.5-5.1)
[2019-08-13 04:17] LABS: BUN/Creatinine Ratio 51.8; Bilirubin, Total 0.5 mg/dL (0.2-1.0); Total Protein 5.4 g/dL (6.4-8.2)
[2019-08-13] MEDS: MEROPENEM 1GM IVPB 100 ML IV SCH ×3 (04:25→20:34)
--- NOTE | 2019-08-13 04:30 | NUR ---
Patient bathe/linen change Patient given complete bath. Skin integrity assessed for any changes. Full linens and gown changed. Patient repositioned for comfort.
[2019-08-13 04:50] LABS: Basophils % (manual) 0 (0.0-2.0); Blast Cells 0; Promyelocytes % 0; Reactive Lymphocytes 0
[2019-08-13 05:07] LABS: Band Neutrophils % (manual) 7; Eosinophils % (manual) 1 (0-7); Lymphocytes % (manual) 9 (10.0-50.0); Metamyelocytes % 1; Monocytes % (manual) 13 (0-12); Myelocytes % 1
[2019-08-13] MEDS: FUROSEMIDE 20 MG/2 ML VIAL IV SCH ×2 (05:17→17:42)
[2019-08-13] MEDS: ACCU-CHEK COMFORT CURVE STRIP VI SCH ×4 (05:19→17:41)
[2019-08-13] MEDS: LABETALOL HCL 5 MG/ML 4ML SYRINGE IV SCH ×3 (05:19→21:34)
[2019-08-13] MEDS: InsuLIN REG 1unit/0.01ml Soln (100units/ml) SC SCH ×4 (05:20→17:41)
--- NOTE | 2019-08-13 06:00 | NUR ---
Suctioning of oral secretions done prn, thick creamy secretions noted.
[2019-08-13] MEDS: DexMEDEtomidine 400 MCG in D5W 5% 96 ML IV SCH (06:20)
--- NOTE | 2019-08-13 07:40 | NUR ---
OPENING Received report from Shantal MOE. Care initiated and initial assessment complete.
--- NOTE | 2019-08-13 08:30 | NUR ---
SUCTION Suctioned patient orally, minimal secretions. Patient resisting but tolerated okay.
[2019-08-13] MEDS: ENOXAPARIN SOD 40 MG/0.4 ML SYRINGE SC SCH (09:11)
[2019-08-13] MEDS: FAMOTIDINE (10MG/ML) 2ML VL IV SCH (09:11)
[2019-08-13] MEDS: VANCOMYCIN 1GM/250ML 250 ML IV SCH (09:11)
[2019-08-13] MEDS: FLUCONAZOLE 200MG/100ML 100 ML IV SCH ×2 (09:11→11:29)
[2019-08-13] MEDS: POTASSIUM CHL 20MEQ/100ML 100 ML IV SCH (09:11)
--- NOTE | 2019-08-13 10:00 | NUR ---
PARTIAL LINEN CHANGE
--- NOTE | 2019-08-13 11:30 | NUR ---
BEDSIDE Dr. Wahl bedside. New orders received, Patient may go to [facility].
--- NOTE | 2019-08-13 11:35 | NUR ---
PAGELinus LOZA Paged Dr. Irwin to confirm patient can be downgraded to [facility]. confirmed.
--- NOTE | 2019-08-13 12:28 | NUR ---
Nutrition Follow-up Notes Wt.: 83.1 kg based on bed scale today. Pt's successfully extubated, yesterday, on oxygen via nasal cannula, immediate family members at bedside, denies discomfort except for mild lower back pain during rounds this morning. Pt states (translated by family members) that she usually weighs around 165 lbs, probably gained weight d/t fluids few days investigation division captain. Pt's borderline diabetic, takes oral DM meds, usually has good appetite, eat meals regularly, NKFA and not into any special diets investigation division captain. Pt's currently NPO, remains on TPN @ 67 ml/hr providing 1610 kcal, 90 gms pro, 1258 NPCs and 25% Fat. Pt with adequate PN support d/t high initiation rate delivery of concentrated formula aeb current PN infusion meet 89% to 98% of est caloric needs and 102% to 136% of est protein needs. Discussed importance/benefits of PMN support while remains NPO r/t current medical condition and they verbalized understanding. Noted pt's to receive tonight another TPN @ same rate and nutrient concentration. Est. Needs: 1650 kcal to 1800 kcal (18-20 kcal/kgBW), 66 gms to 88 gms pro (1.2-1.6 gms/kgIBW: 55 kg). Will continue to monitor pertinent labs and reassess nutrient need prn Labs: Gluc 123 H, BUN 44 H,Ca 8.2 L, ALP 183 H, Tpro 5.4 L, Alb 1.5 L; Prealb 8.0 L, Tirg 69 wnl Skin: Zaire scale 11, high risk, pt's medial abdomen incision dry and intact per ear flap binder. GI: Pt had 1 BM 08/03/19, on NGT to LCS, had 250 ml gastric drainage output this morning per ear flap binder. PES: Partially Resolved: Increased nutrient needs r/t acute/chronic medical condition aeb intubated, sedated, s/p surgery, severe hypoalbuminemia, NPO with PN support. Altered nutrition related lab values r/t current/chronic medical condition aeb hyperglycemia, hyponatremia, elev. renal labs, low LFTs, Phos and severe hypoalbuminemia Obesity r/t food intake more than body requirement aeb 152% IBW, BMI 31.4 kg/m2 and increased body adiposity Will continue to monitor NPO status, PN tolerance, skin status, pertinent labs and weight trend. F/u in 2 to 3 days. Rec.: 1.) If still NPO, continue PN support that meets at least 75% of est nutrient needs. 2.) Advance gradually to oral diet when medically appropriate. 3.) Refer pt to CDE/RD for further nutrition education and weight monitoring upon discharge. 4.) Continue current plan of care.
--- NOTE | 2019-08-13 13:00 | NUR ---
HOLD P.T. TODAY BECAUSE OF THROMBUS IN RUE.
--- NOTE | 2019-08-13 15:30 | NUR ---
SPOKE TO MD Spoke to Dr. Wahl about right arm ultrasound results. Thrombus is superficial and patient is on lovenox.
--- NOTE | 2019-08-13 16:00 | NUR ---
BEDSIDE Dr. Dalal bedside. No new orders.
--- NOTE | 2019-08-13 19:10 | NUR ---
Opening notes Assumed care, awake with no signs of distress, still with O2 per nasal, NGT in place connected to LCS, meyers catheter intact, TLC infusing TPN at desired rate. Bed in lowest position with side rails up, be alarm on. Will continue care.
[2019-08-13] MEDS ORDERED: TPN PER PHARMACY IV NR ×9 (20:00)
--- NOTE | 2019-08-13 22:35 | NUR ---
ICU [id number] accompanied by Maggie Portillo RN and Hannah PORRAS via bed on posting machine operator and portable 02 @ 2L/min. All patient medications and personal belongings transferred with patient to receiving floor. Patient care transferred to Maggie Gotti RN. NOTE: Left subclavian TLC infusing TPN and merrem, meyers catheter and NGT intact. No distress at the time of departure.
--- NOTE | 2019-08-13 22:45 | NUR ---
Family updated on pt's transfer to [facility].
[2019-08-13] MEDS: MORPHINE SULF INJ 2 MG/ML SYRINGE 1ML IV PRN (22:52)
--- NOTE | 2019-08-13 23:00 | NUR ---
Transfer to [facility] CIPRIANOKEENA transferred to [facility] via bed on monitor worker, and portable 02. Patient connected to unit monitoring and oxygen, and [facility] [place] Patient oriented to Maggie Cordero, primary RN, unit, room, bed, and unit policies regarding patient care and visiting hours. All questions and concerns addressed, patient seems upset and unable to verbalize understanding. Pt speaks Sinhala, grants and contracts assistant gianluca used to communicate with pt. Pt oriented to self and place. Will continue to monitor.
[2019-08-14] VITALS: BP 146/67
[2019-08-14] MEDS: MORPHINE SULF INJ 2 MG/ML SYRINGE 1ML IV PRN ×2 (01:52→04:33)
[2019-08-14 04:00] VITALS: BP 151/67
[2019-08-14] MEDS: MEROPENEM 1GM IVPB 100 ML IV SCH ×3 (04:33→23:05)
[2019-08-14 05:43] LABS: Hematocrit 26.7 % (36.0-46.0); Mean Corpuscular Hemoglobin 30.1 pg (28.0-32.0); Mean Corpuscular Hgb Conc. 33.8 g/dL (32.0-36.0); Platelet Count (auto) 397 10^3/uL (140-450); Red Cell Distribution Width 12.7 % (11.8-14.3); White Blood Cell 16.6 10^3/uL (4.4-10.8)
[2019-08-14 05:55] LABS: Basophils % (manual) 0 (0.0-2.0); Blast Cells 0; Eosinophils % (manual) 0 (0-7); Promyelocytes % 0; Reactive Lymphocytes 0
[2019-08-14 05:57] LABS: Albumin 1.7 g/dL (3.4-5.0); Calcium 8.1 mg/dL (8.5-10.1); Magnesium 2.2 mg/dL (1.6-2.6); Potassium 3.7 mmol/L (3.5-5.1)
[2019-08-14] MEDS: ACCU-CHEK COMFORT CURVE STRIP VI SCH ×4 (06:00→18:00)
[2019-08-14 06:01] LABS: BUN/Creatinine Ratio 56.8; Bilirubin, Total 0.5 mg/dL (0.2-1.0); Phosphorus 3.6 mg/dL (2.5-4.90); Total Protein 5.3 g/dL (6.4-8.2)
[2019-08-14] MEDS: LABETALOL HCL 5 MG/ML ML 20ML VIAL IV PRN (06:49)
[2019-08-14] MEDS: InsuLIN REG 1unit/0.01ml Soln (100units/ml) SC SCH ×4 (06:50→19:04)
[2019-08-14] MEDS: LABETALOL HCL 5 MG/ML 4ML SYRINGE IV SCH (06:53)
[2019-08-14] MEDS: FUROSEMIDE 20 MG/2 ML VIAL IV SCH ×2 (06:55→19:03)
--- NOTE | 2019-08-14 07:00 | NUR ---
Pt seems to have a lot of pain. Medicated with morphine as prescribed. Pt has had to be medicated every 3 hours stating severe pain. Clayton remain intact. Son will visit pt at 0900 per phone call last night. Report given to AM shift, care endorsed.
[2019-08-14 07:45] VITALS: BP 166/61
--- NOTE | 2019-08-14 08:00 | NUR ---
Opening Shift Note Assumed care of patient, awake and alert. Patient speaks Thai only. Patient's son Messi translated for Patient. Patient is A&Ox3. Patient on the monitor. Patient on 2L NC saturation 99%. IV left subclavian triple lumen running TPN at 67ml/hr, patent, clean, dry, and intact. NGT right nares secured and on LCS. Dacosta to gravity. No S/S of distress/SOB or pain. Instructed on POC and to call for assist. Bed locked and in the lowest position, side rails up x2, call light with in reach. Will continue to monitor.
--- NOTE | 2019-08-14 10:00 | NUR ---
Medication dosages, usages, and side effects explained to patient and son Messi. Both verbalized understanding. Will continue to monitor.
[2019-08-14] MEDS: ENOXAPARIN SOD 40 MG/0.4 ML SYRINGE SC SCH (10:18)
[2019-08-14] MEDS: FAMOTIDINE (10MG/ML) 2ML VL IV SCH (10:18)
[2019-08-14] MEDS: POTASSIUM CHL 20MEQ/100ML 100 ML IV SCH (10:19)
[2019-08-14 11:53] VITALS: BP 157/75
[2019-08-14 11:57] LABS: Band Neutrophils % (manual) 3; Lymphocytes % (manual) 6 (10.0-50.0); Metamyelocytes % 1; Monocytes % (manual) 9 (0-12); Myelocytes % 1
--- NOTE | 2019-08-14 12:00 | NUR ---
Patient resting at this time. No S/S of pain/SOB or distress. Will continue to monitor.
[2019-08-14] MEDS: VANCOMYCIN 1GM/250ML 250 ML IV SCH (12:15)
--- NOTE | 2019-08-14 12:30 | NUR ---
Dr. Irwin at bedside. No new orders at this time.
--- NOTE | 2019-08-14 12:45 | NUR ---
Dr. Dalal at bedside. No new orders at this time.
[2019-08-14] MEDS: FLUCONAZOLE 200MG/100ML 100 ML IV SCH ×2 (15:21→16:43)
[2019-08-14 15:50] VITALS: BP 152/75
--- NOTE | 2019-08-14 16:00 | NUR ---
Patient resting at this time. No S/S of pain/SOB or distress. Will continue to monitor.
[2019-08-14] MEDS: LABETALOL HCL 5 MG/ML ML 20ML VIAL IV SCH ×2 (16:44→23:02)
--- NOTE | 2019-08-14 18:30 | NUR ---
End of Shift Note Patient is A&Ox3. Patient on the monitor. Patient on 2L NC saturation 98%. IV left subclavian triple lumen running TPN at 67ml/hr, patent, clean, dry, and intact. NGT right nares secured and on LCS. Dacosta to gravity. No S/S of distress/SOB or pain. Bed locked and in the lowest position, side rails up x2, call light with in reach. Report to be given to shift leader RN. Will continue to monitor.
[2019-08-14 20:00] VITALS: BP 144/65
[2019-08-14] MEDS ORDERED: TPN PER PHARMACY IV NR ×10 (20:00)
[2019-08-15] VITALS: BP 156/66
[2019-08-15] MEDS: MORPHINE SULF INJ 2 MG/ML SYRINGE 1ML IV PRN (01:26)
[2019-08-15 04:00] VITALS: BP 173/71
[2019-08-15] MEDS: ACCU-CHEK COMFORT CURVE STRIP VI SCH ×5 (05:49→23:39)
[2019-08-15] MEDS: InsuLIN REG 1unit/0.01ml Soln (100units/ml) SC SCH ×5 (05:49→23:38)
[2019-08-15] MEDS: MEROPENEM 1GM IVPB 100 ML IV SCH ×3 (06:23→21:07)
[2019-08-15] MEDS: LABETALOL HCL 5 MG/ML ML 20ML VIAL IV SCH ×3 (06:24→21:48)
[2019-08-15] MEDS: FUROSEMIDE 20 MG/2 ML VIAL IV SCH ×2 (06:24→17:55)
[2019-08-15 06:45] LABS: Potassium 3.7 mmol/L (3.5-5.1)
[2019-08-15 06:53] LABS: Albumin 1.7 g/dL (3.4-5.0); BUN/Creatinine Ratio 62.8; Bilirubin, Total 0.6 mg/dL (0.2-1.0); Calcium 8.3 mg/dL (8.5-10.1); Magnesium 2.2 mg/dL (1.6-2.6); Phosphorus 3.9 mg/dL (2.5-4.90); Total Protein 5.6 g/dL (6.4-8.2)
--- NOTE | 2019-08-15 07:00 | NUR ---
Pt remained stable this shift. Less pain noted last night than the previous night. Pt gets upset with turning and pillows under her but it was explained to her it is to prevent bed sores. She then will tolerate pillows for awhile but will ask for them to be removed as soon as possible so pulling out pillows was counting as turn. Bottom remains blanchable with heart intact for protection. Frequent oral care provided. Pt given full bath and linen change this shift. Report given to Raffi MOE, care endorsed.
--- NOTE | 2019-08-15 07:00 | NUR ---
This shift noted lower right side of incision more firm than the start of shift. Slight elevation in that area compared to other side. Reported to Raffi RN to bring attention to Dr. Irwin when he rounds.
--- NOTE | 2019-08-15 07:40 | NUR ---
Opening Shift Note Assumed care of patient, awake and alert, speak Occitan, no family at the bedside at this time, using google electrogalvanizing machine operator at this time. No S/S of distress/SOB or pain. NG with low suction, position checked. Mouth care provided. Incision site at mid abdominal clean dry and hang intact, no redness noted. Will give instruction and POC to her family, and call light within reach, will continue to monitor for changes Q1hr and PRN.
[2019-08-15 07:45] VITALS: BP 160/80
[2019-08-15] MEDS: POTASSIUM CHL 20MEQ/100ML 100 ML IV SCH (08:58)
[2019-08-15] MEDS: FAMOTIDINE (10MG/ML) 2ML VL IV SCH (08:59)
[2019-08-15] MEDS: ENOXAPARIN SOD 40 MG/0.4 ML SYRINGE SC SCH (08:59)
--- NOTE | 2019-08-15 09:19 | NUR ---
Her son at the bedside, able to help with bundler seasonal greenery, patient oriented to person, time , place and she knew why she is in the hospital, plan of care discussed with her son, they made aware. Patient has bowel sound but no passing gas at this time. No complaining of pain noted, just mouth dry.
[2019-08-15] MEDS: VANCOMYCIN 1GM/250ML 250 ML IV SCH (09:51)
--- NOTE | 2019-08-15 10:25 | NUR ---
PT at the bedside, her sone also at the bedside for helping with translation.
--- NOTE | 2019-08-15 10:50 | NUR ---
Patient sitting on the chair, her families at the bedside as well. Complaining a little bit dizziness, BP 151/76 mmHg, HR 95 /min, O2 saturation 97% with NC 2 LPM. Will continue to monitor and care.
--- NOTE | 2019-08-15 10:50 | NUR ---
Patient told her son that getting tired and want to go back to bad, PT at the bedside. Patient went back to bed at this time, no accident noted. Lying on the bed, reposition as well.
[2019-08-15] MEDS: FLUCONAZOLE 200MG/100ML 100 ML IV SCH ×2 (11:01→11:56)
[2019-08-15] MEDS: LABETALOL HCL 5 MG/ML ML 20ML VIAL IV PRN (12:02)
--- NOTE | 2019-08-15 12:55 | NUR ---
Pt also recd PROM exercises for bilat UE's and LE's prior to bed to chair xfr Addendum: 08/15/19 at 1259 by Annie Simons PT Amended: Links added.
--- NOTE | 2019-08-15 13:15 | NUR ---
Position changed, mouth care provided. Patient stated that feeling hot, electric fan provided.
--- NOTE | 2019-08-15 13:36 | NUR ---
Nutrition Follow-up Notes Wt.: 83.5 kg based on bed scale today. Pt's on oxygen via nasal cannula, immediate family members and PT at bedside during rounds this morning. Pt's no signs of distress noted earlier, NGT to LCS in place had 750 ml gastric drainage output noted by RN earlier. Pt remains NPO, currently on TPN @ 65 ml/hr providing 1510 kcal, 90 gms pro, 1152 NPCs and 20% Fat. Pt with adequate PN support d/t high initiation rate delivery of concentrated formula aeb current PN infusion meet 84% to 92% of est caloric needs and 79% to 102% of est protein needs. Noted pt's to receive tonight another TPN @ 67 ml/hr providing 1610 kcal, 90 gms pro, 1250 NPCs and 25% Fat. Est. Needs: 1650 kcal to 1800 kcal (18-20 kcal/kgBW), 88 gms to 114 gms pro (1.0-1.3 gms/kgBW: reassessed d/t severe hypoalbuminemia, s/p surgery). Will continue to monitor pertinent labs and reassess nutrient need prn Labs: Gluc 116 H, CO2 35 H, BUN 49 H, Ca 8.3 L, AST 73 H, ALP 222 H, Tpro 5.6 L, Alb 1.7 L; Prealb 8.0 L, Trig 69 wnl Skin: Zaire scale 11, high risk, pt's medial abdomen incision dry and intact per raw hide trimmer. GI: Pt had 1 BM 08/03/19 per raw hide trimmer. PES: Partially Resolved: Increased nutrient needs r/t acute/chronic medical condition aeb intubated, sedated, s/p surgery, severe hypoalbuminemia, NPO with PN support. Altered nutrition related lab values r/t current/chronic medical condition aeb hyperglycemia, hyponatremia, elev. renal labs, low LFTs, Phos and severe hypoalbuminemia Obesity r/t food intake more than body requirement aeb 152% IBW, BMI 31.4 kg/m2 and increased body adiposity Will continue to monitor NPO status, PN tolerance, skin status, pertinent labs and weight trend. F/u in 2 to 3 days. Rec.: 1.) If still NPO, continue PN support that meets at least 75% of est nutrient needs. 2.) Advance gradually to oral diet when medically appropriate. 3.) Refer pt to CDE/RD for further nutrition education and weight monitoring upon discharge. 4.) Continue current plan of care.
--- NOTE | 2019-08-15 14:30 | NUR ---
WOUND CARE NOTE: Weekly reevaluation by wound care team. Patient has been on skin integrity rounding due to low Zaire score. Patient is now in [facility]. Patient is alert and no signs or symptoms of pain noted. Last Zaire score is 15. Patient's abdi prominences remain pink blanching and intact. No open wounds noted. Nursing to continue with previously written wound/skin care orders; wound care team to continue to follow.
--- NOTE | 2019-08-15 15:39 | NUR ---
Dr. Dalal at the bedside, seen and examined patient at his time, plan of care discussed with her families, will continue NG with LIS, TPN, PT, and continue to monitor in [facility] for 1 more day. Received order for Tylenol, patient and her families made aware. Addendum: 08/15/19 at 1541 by GEOFFREY ACEVEDO RN RN made aware about BT (99.9F) and SBP okay at 150-160 mmHg.
[2019-08-15 15:40] VITALS: BP 164/69
[2019-08-15] MEDS ORDERED: IRON SUCROSE COMPLEX 200 MG in SODIUM CHL 0.9% 100 ML IV SCH (15:45)
--- NOTE | 2019-08-15 16:00 | NUR ---
Patient sleeping at this time, her families will leaving soon.
--- NOTE | 2019-08-15 17:50 | NUR ---
Patient lying on the bed, position changed, no complaining of pain noted. Still use Google translation sometimes for communication when her families not at the bedside. Vital sign stable, SBP 150-160 mmHg, HR 90-100 /min with rare PAT, continue TPN and ATB, continue to monitor for BT, on O2 NC 2 LPM, O2 saturation 98%. NG with LIS got 100 ml out, mouth care provided, will continue to monitor and care.
[2019-08-15] MEDS: SODIUM FERR GLUC 62.5MG/5ML 125 MG in SODIUM CHL 0.9% 100 ML IV SCH (18:29)
--- NOTE | 2019-08-15 19:10 | NUR ---
OPENING SHIFT RECEIVED REPORT FROM DAY SHIFT RN. ASSUMED CARE OF PATIENT. PATIENT IN BED WITH NO SIGNS OR SYMPTOMS OF SOB, PAIN OR DISTRESS. CURRENTLY ON 2L 02 NASAL CANNULA, 02 SAT - 99%. REORIENTED PATIENT TO ENVIRONMENT WITH GOOGLE TRANSLATE. LEFT SUBCLAVIAN TLC - CLEAN/DRY/INTACT. NGT RIGHT NARE - PATENT AND CONNECTED TO LOW INTERMITTENT SUCTION. SHANNON HUNG TO GRAVITY ON BED RAIL. REPOSITIONED FOR COMFORT. BED IN LOWEST POSITION, SIDE RAILS UP X2, CALL LIGHT WITHIN REACH. WILL CONTINUE TO MONITOR. Addendum: 08/15/19 at 2310 by AILYN BALTAZAR RN RN NGT CONNECTED TO LOW CONTINUOUS SUCTION.
[2019-08-15 20:00] VITALS: BP 169/76
[2019-08-15] MEDS ORDERED: TPN PER PHARMACY IV NR ×10 (20:00)
[2019-08-16] VITALS (7 sets, daily range): BP systolic 117–162; BP diastolic 65–86
[2019-08-16] MEDS: MORPHINE SULF INJ 2 MG/ML SYRINGE 1ML IV PRN (02:41)
--- NOTE | 2019-08-16 04:00 | NUR ---
MORNING CARE PERFORMED MORNING CARE WITH CHG WIPES AND WASH CLOTHS TO THE FACE. PARTIAL LINEN CHANGE AND GOWN CHANGED. REPOSITIONED FOR COMFORT. SKIN REASSESSED AT THIS TIME. WILL CONTINUE TO MONITOR.
[2019-08-16] MEDS: MEROPENEM 1GM IVPB 100 ML IV SCH ×3 (04:49→22:11)
[2019-08-16 05:20] LABS: Basophils # (auto) 0 uL; Eosinophils # (auto) 0.1 uL; Hemoglobin 8.8 g/dL (12.2-16.2); Lymphocytes # (auto) 0.9 uL; Monocytes # (auto) 1.7 uL; Neutrophils % (auto) 85.3 % (37.0-80.0)
[2019-08-16 05:22] LABS: Basophils % (auto) 0.1 % (0.0-2.0); Eosinophils % (auto) 0.7 % (0.0-7.0); Hematocrit 26.1 % (36.0-46.0); Lymphocytes % (auto) 4.7 % (10.0-50.0); Mean Corpuscular Hemoglobin 29.9 pg (28.0-32.0); Mean Corpuscular Hgb Conc. 33.8 g/dL (32.0-36.0); Mean Corpuscular Volume 88.6 fL (80.0-100.0); Monocytes % (auto) 9.2 % (0.0-12.0); Neutrophils # (auto) 15.6 uL; Platelet Count (auto) 503 10^3/uL (140-450); Red Blood Cells 2.94 10^6/uL (4.0-5.20); White Blood Cell 18.3 10^3/uL (4.4-10.8)
[2019-08-16 05:42] LABS: Albumin 1.7 g/dL (3.4-5.0); Calcium 8.2 mg/dL (8.5-10.1); Magnesium 2.1 mg/dL (1.6-2.6); Potassium 3.8 mmol/L (3.5-5.1)
[2019-08-16 05:48] LABS: BUN/Creatinine Ratio 52.2; Bilirubin, Total 0.4 mg/dL (0.2-1.0); Phosphorus 3.4 mg/dL (2.5-4.90); Pre Albumin 16.2 mg/dL (20.0-40.0); Total Protein 5.7 g/dL (6.4-8.2)
--- NOTE | 2019-08-16 05:50 | NUR ---
FEVER RECTAL PROBE PLACED, TEMPERATURE READS 101.1 DEGREES FAHRENHEIT. COOLING MEASURES AND TYLENOL SUPPOSITORY GIVEN. WILL CONTINUE OT MONITOR.
[2019-08-16] MEDS: InsuLIN REG 1unit/0.01ml Soln (100units/ml) SC SCH ×3 (06:02→18:00)
[2019-08-16] MEDS: ACETAMINOPHEN 650 MG RECT SUPP PR PRN (06:02)
[2019-08-16] MEDS: ACCU-CHEK COMFORT CURVE STRIP VI SCH ×3 (06:02→17:36)
[2019-08-16] MEDS: LABETALOL HCL 5 MG/ML ML 20ML VIAL IV SCH ×3 (06:03→22:12)
[2019-08-16] MEDS: FUROSEMIDE 20 MG/2 ML VIAL IV SCH ×2 (06:59→17:40)
--- NOTE | 2019-08-16 07:30 | NUR ---
RECEIVED PATIENT SITTING UP IN THE BED, O2 AT 2L BY N/C, A/O BUT SPEAKS BURUNDIAN,, SHANNON TO GRAVITY, SCD'S TO SHAZIA LEGS, TPN AT 67 ML/HR INFUSING INTO THE LEFT SUBCLAVIAN BY THE IV PUMP, INCISION TO THE ABD WITH MICHELLE AND COVERED WITH ABD DRESSING AND THEN A ABDOMINAL BINDER, NGT TO THE RT SNARE AT [facility],
--- NOTE | 2019-08-16 07:47 | NUR ---
END OF SHIFT REPORT GIVEN TO DAY SHIFT RN. CARE ENDORSE.
--- NOTE | 2019-08-16 08:25 | NUR ---
FAMILY IN TO SEE THE PATIENT
--- NOTE | 2019-08-16 08:26 | NUR ---
PER THE FAMILY SHE IS A/O TIMES , KNOWS WHERE SHE IS AND EVERTING ABOUT HER SELF
--- NOTE | 2019-08-16 08:45 | NUR ---
DR SAGASTUME IN TO SEE THE PATIENT AND ORDERED A CT OF THE ABD
--- NOTE | 2019-08-16 09:30 | NUR ---
FAMILY STILL WITH THE PATIENT TALKING TO HER,
[2019-08-16] MEDS ORDERED: OMNIPAQUE ORAL SOLN 500ml 12mg/ml PO ONE (09:42)
[2019-08-16] MEDS: FAMOTIDINE (10MG/ML) 2ML VL IV SCH (10:00)
--- NOTE | 2019-08-16 10:00 | NUR ---
EXPLAIN MEDICATIONS TO THE PATIENT REGARDING THE DOSAGE, USAGE AND THE SIDE EFFECTS, FAMILY VERBALIZED THAT HEY UNDERSTOOD AND MEDS GIVEN ORDERED
--- NOTE | 2019-08-16 10:20 | NUR ---
SON IN TO VISIT WITH THE PATIENT
[2019-08-16] MEDS: VANCOMYCIN 1GM/250ML 250 ML IV SCH (10:23)
[2019-08-16] MEDS: ENOXAPARIN SOD 40 MG/0.4 ML SYRINGE SC SCH (10:23)
[2019-08-16] MEDS: POTASSIUM CHL 20MEQ/100ML 100 ML IV SCH (10:24)
--- NOTE | 2019-08-16 11:15 | NUR ---
SON AT THE BEDS SIDE AND FAMILY TALKING WITH THE PATIENT
--- NOTE | 2019-08-16 12:10 | NUR ---
PLACED ON THE BED MCGILL AND HAD A MODERATE SIZE LIQUID BM
[2019-08-16] MEDS ORDERED: IOHEXOL 300 MG/ML 100ML BOTTLE IJ ONE (12:11)
[2019-08-16] MEDS: FLUCONAZOLE 200MG/100ML 100 ML IV SCH ×2 (12:14→12:19)
--- NOTE | 2019-08-16 12:45 | NUR ---
PATIENT TO RADIOLOGY FOR CT OF THE ABD
--- NOTE | 2019-08-16 13:20 | NUR ---
BACK FROM CT AND TOLERATED THE
[2019-08-16] MEDS: SODIUM FERR GLUC 62.5MG/5ML 125 MG in SODIUM CHL 0.9% 100 ML IV SCH (13:51)
--- NOTE | 2019-08-16 14:20 | NUR ---
NO CHANGE IN CONDITION
--- NOTE | 2019-08-16 15:50 | NUR ---
NOTIFIED DR SAGASTUME OF THE RESULTS OF THE CT OF THE ABD AND STATED TO REMOVE THE NGT AND GIVE HER A FEW ICE CHIPS, MADE HIM AWARE THAT THE PATIENT DID HAVE A LIQUID BLACK BM
--- NOTE | 2019-08-16 15:52 | NUR ---
NGT REMOVED AND ICE CHIPS GIVEN
--- NOTE | 2019-08-16 16:38 | NUR ---
SITTING ON THE BEDPAN, FAMILY HAS WENT HOME
--- NOTE | 2019-08-16 17:30 | NUR ---
PATIENT HAS EYES CLOSED APPEARS TO BE SLEEPING NO YELLING AT THIS TIME
--- NOTE | 2019-08-16 18:30 | NUR ---
REPORT CALLED TO FAIZA PATIENT GOING TO 212B ON TELE 39, ALL PATIENT BELONGING WITH THE PATIENT
--- NOTE | 2019-08-16 18:51 | NUR ---
NOTIFIED THE SON THAT WE MOVED THE PATIENT TO ROOM , [id number]
--- NOTE | 2019-08-16 18:55 | NUR ---
TELE TRANSFER FROM [facility] Patient transferred to bed 212B after report was received from RNIgnacia. Patient resting in bed with eyes closed, even rise and fall of chest noted. No S/S of distress/SOB or pain noted. Patient at patient's bedside for safety. Left subclavian PICC line intact/patent and infusing TPN @ 65mls/hr. Dacosta catheter intact/patent and hung below bed to gravity. Bed in lowest, locked position with side rails up x2. Fall precautions in place and call light within reach. Will endorse care of patient to NOC RN.
--- NOTE | 2019-08-16 19:33 | NUR ---
CLOSING NOTE Endorsed care of patient to NOC RNJanay.
[2019-08-16] MEDS ORDERED: TPN PER PHARMACY IV NR ×9 (20:00)
--- NOTE | 2019-08-16 20:05 | NUR ---
Opening Shift Note Assumed care of patient, awake and alert, oriented x 4. On oxygen at 2L via NC with even and unlabored respirations. No S/S of distress or SOB. Dacosta intact and draining to gravity, no kinks. Active bowel sounds. abd incision with hang CDI, open to air, abd binder on. Patient turned with moderate assistance, Optifoam to sacrum CDI, noted blanchable redness. Patient denies pain. Bed low locked position with side rails up x 2 and call light within reach, sitter at bedside. Son was able to translate conversion via telephone. Instructed on POC and to call for assist PRN, will continue to monitor for changes Q1hr and PRN.
[2019-08-17 00:42] VITALS: BP 110/78
[2019-08-17 04:42] VITALS: BP 132/72
[2019-08-17] MEDS: FUROSEMIDE 20 MG/2 ML VIAL IV SCH ×2 (05:43→11:21)
[2019-08-17] MEDS: MEROPENEM 1GM IVPB 100 ML IV SCH ×3 (05:43→22:54)
[2019-08-17] MEDS: InsuLIN REG 1unit/0.01ml Soln (100units/ml) SC SCH ×4 (05:43→17:43)
[2019-08-17] MEDS: ACCU-CHEK COMFORT CURVE STRIP VI SCH ×4 (05:44→17:37)
[2019-08-17] MEDS: LABETALOL HCL 5 MG/ML ML 20ML VIAL IV SCH ×3 (05:44→22:56)
[2019-08-17 06:08] LABS: Albumin 1.6 g/dL (3.4-5.0); Calcium 8.6 mg/dL (8.5-10.1); Magnesium 2.2 mg/dL (1.6-2.6); Potassium 3.8 mmol/L (3.5-5.1)
[2019-08-17 06:12] LABS: BUN/Creatinine Ratio 54.8; Bilirubin, Total 0.4 mg/dL (0.2-1.0); Phosphorus 3.8 mg/dL (2.5-4.90); Total Protein 5.6 g/dL (6.4-8.2)
--- NOTE | 2019-08-17 06:56 | NUR ---
closing note patient awake. no s/s of respiratory distress. pt on 2L/ns. pt is npo for procedure today. patient does not report any pain at this time. respirations are even and unlabored.
--- NOTE | 2019-08-17 07:20 | NUR ---
Opening Shift Note Assumed care of patient, awake and alert. No S/S of distress/SOB or pain. Sitter at bedside for safety. Will continue to monitor for changes Q1hr and PRN.
[2019-08-17 09:00] VITALS: BP 154/65
[2019-08-17] MEDS: ENOXAPARIN SOD 40 MG/0.4 ML SYRINGE SC SCH (09:23)
[2019-08-17] MEDS: FAMOTIDINE (10MG/ML) 2ML VL IV SCH (09:23)
[2019-08-17] MEDS: VANCOMYCIN 1GM/250ML 250 ML IV SCH (09:23)
--- NOTE | 2019-08-17 11:00 | NUR ---
IV insertion IV access obtained, via clean sterile technique by inserting 22 gauge catheter at RIGHT HAND. IV secured properly. No trauma to site. Patient tolerated well. NOTE: []
[2019-08-17] MEDS: FLUCONAZOLE 200MG/100ML 100 ML IV SCH ×2 (11:21→12:43)
--- NOTE | 2019-08-17 11:31 | NUR ---
Nutrition Follow-up Notes Wt.: 79.2 kg Pt's sleeping NGT to LCS in place had 750 ml gastric drainage output noted by RN earlier. Pt remains NPO, currently on TPN @ 67 ml/hr providing 1610 kcal, 90 gms pro, 1250 NPCs. Pt with adequate PN support d/t high initiation rate delivery of concentrated formula aeb current PN infusion meet 89-97% of est caloric needs and 79% to 102% of est protein needs. Est. Needs: 1650 kcal to 1800 kcal (18-20 kcal/kgBW), 88 gms to 114 gms pro (1.0-1.3 gms/kgBW: reassessed d/t severe hypoalbuminemia, s/p surgery). Will continue to monitor pertinent labs and reassess nutrient need prn Labs: GLU 132 H, BUN 46 H, CO2 33 H, ALB 1.6 L. Skin: Zaire scale 15 mod risk, pt's medial abdomen incision dry and intact per technical documentation specialist. GI: Pt had 1 BM 08/03/19 per technical documentation specialist. PES: Partially Resolved: Increased nutrient needs r/t acute/chronic medical condition aeb intubated, sedated, s/p surgery, severe hypoalbuminemia, NPO with PN support. Altered nutrition related lab values r/t current/chronic medical condition aeb hyperglycemia, hyponatremia, elev. renal labs, low LFTs, Phos and severe hypoalbuminemia Obesity r/t food intake more than body requirement aeb 152% IBW, BMI 31.4 kg/m2 and increased body adiposity Will continue to monitor NPO status, PN tolerance, skin status, pertinent labs and weight trend. F/u in 2 to 3 days. Rec.: 1.) If still NPO, continue PN support that meets at least 75% of est nutrient needs. 2.) Advance gradually to oral diet when medically appropriate. 3.) Refer pt to CDE/RD for further nutrition education and weight monitoring upon discharge. 4.) Continue current plan of care.
--- NOTE | 2019-08-17 13:30 | NUR ---
Central Line removed Left subclavian triple lumen removed per order. Culture sent to lab per order. Dressing applied. Patient tolerated well.
[2019-08-17] MEDS: SODIUM FERR GLUC 62.5MG/5ML 125 MG in SODIUM CHL 0.9% 100 ML IV SCH (13:41)
[2019-08-17 14:01] VITALS: BP 146/66
[2019-08-17 17:17] VITALS: BP 156/67
--- NOTE | 2019-08-17 17:40 | NUR ---
Room change Patient transferred to room 271B. Report given to Risa. Addendum: 08/17/19 at 1801 by KALEB ALFRED RN Son notified.
--- NOTE | 2019-08-17 17:55 | NUR ---
RECEIVED REPORT FROM KALEB Campbell RN. PATIENT MOVED FROM CENTRAL TO ROOM 271B. SITTER AT BEDSIDE.
--- NOTE | 2019-08-17 19:30 | NUR ---
received report from day rn poc reviewed
[2019-08-17] MEDS ORDERED: TPN PER PHARMACY IV NR ×9 (20:00)
--- NOTE | 2019-08-17 20:02 | NUR ---
pt resting with hob up resp even and unlabored, no s/s of distress, sitter at bedside, pt speaks uzbek, will call interpretor if not able to meet pts needs, sitter at bedside for pts safety
[2019-08-17 22:00] VITALS: BP 148/66
--- NOTE | 2019-08-18 01:14 | NUR ---
AWOKE PT HAS HAD TWO LIQUID STOOLS, NO ORDER NOTED
--- NOTE | 2019-08-18 03:11 | NUR ---
resting with eyes closed resp even and unlabored
[2019-08-18] MEDS: MEROPENEM 1GM IVPB 100 ML IV SCH ×3 (04:51→23:13)
[2019-08-18 06:00] VITALS: BP 143/68
[2019-08-18] MEDS: LABETALOL HCL 5 MG/ML ML 20ML VIAL IV SCH ×3 (06:20→23:14)
[2019-08-18 06:42] LABS: Basophils # (auto) 0.1 uL; Eosinophils # (auto) 0.3 uL; Hematocrit 24.5 % (36.0-46.0); Lymphocytes # (auto) 0.8 uL; Neutrophils # (auto) 8.5 uL; Red Blood Cells 2.73 10^6/uL (4.0-5.20)
[2019-08-18 06:45] LABS: Basophils % (auto) 0.6 % (0.0-2.0); Eosinophils % (auto) 2.5 % (0.0-7.0); Hemoglobin 8.4 g/dL (12.2-16.2); Lymphocytes % (auto) 7.3 % (10.0-50.0); Mean Corpuscular Hemoglobin 30.8 pg (28.0-32.0); Mean Corpuscular Hgb Conc. 34.3 g/dL (32.0-36.0); Mean Corpuscular Volume 89.8 fL (80.0-100.0); Monocytes % (auto) 9.6 % (0.0-12.0); Platelet Count (auto) 558 10^3/uL (140-450); White Blood Cell 10.6 10^3/uL (4.4-10.8)
[2019-08-18 06:54] LABS: Albumin 1.7 g/dL (3.4-5.0); Calcium 8.3 mg/dL (8.5-10.1); Magnesium 2.2 mg/dL (1.6-2.6); Potassium 3.6 mmol/L (3.5-5.1)
[2019-08-18 06:57] LABS: Bilirubin, Total 0.5 mg/dL (0.2-1.0); Total Protein 5.6 g/dL (6.4-8.2)
--- NOTE | 2019-08-18 07:05 | NUR ---
report given to am nurse poc reviewed
[2019-08-18 08:00] VITALS: BP 145/67
[2019-08-18] MEDS: VANCOMYCIN 1GM/250ML 250 ML IV SCH (10:04)
[2019-08-18] MEDS: FAMOTIDINE (10MG/ML) 2ML VL IV SCH (10:05)
[2019-08-18] MEDS: ENOXAPARIN SOD 40 MG/0.4 ML SYRINGE SC SCH (10:05)
[2019-08-18] MEDS: FUROSEMIDE 20 MG/2 ML VIAL IV SCH (10:05)
[2019-08-18] MEDS: FLUCONAZOLE 200MG/100ML 100 ML IV SCH ×2 (13:05→14:56)
[2019-08-18] MEDS: SODIUM FERR GLUC 62.5MG/5ML 125 MG in SODIUM CHL 0.9% 100 ML IV SCH (15:19)
[2019-08-19 05:00] VITALS: BP 156/74
[2019-08-19] MEDS: MEROPENEM 1GM IVPB 100 ML IV SCH ×3 (05:34→20:39)
[2019-08-19] MEDS: LABETALOL HCL 5 MG/ML ML 20ML VIAL IV SCH ×3 (05:55→23:51)
--- NOTE | 2019-08-19 07:30 | NUR ---
RECEIVED REPORT FROM NIGHT NURSE. PATIENT RESTING IN BED, NO DISTRESS NOTED, SITTER AT BEDSIDE. WILL CONTINUE TO MONITOR.
[2019-08-19 09:00] VITALS: BP_SYST 177; BP_SYST 178; BP_DIAS 78; BP_DIAS 89
[2019-08-19] MEDS: FAMOTIDINE (10MG/ML) 2ML VL IV SCH (10:56)
[2019-08-19] MEDS: VANCOMYCIN 1GM/250ML 250 ML IV SCH (10:56)
[2019-08-19] MEDS: FUROSEMIDE 20 MG/2 ML VIAL IV SCH (10:56)
[2019-08-19] MEDS: ENOXAPARIN SOD 40 MG/0.4 ML SYRINGE SC SCH (10:57)
[2019-08-19] MEDS: SODIUM FERR GLUC 62.5MG/5ML 125 MG in SODIUM CHL 0.9% 100 ML IV SCH (12:00)
[2019-08-19 13:00] VITALS: BP 165/58
[2019-08-19] MEDS: FLUCONAZOLE 200MG/100ML 100 ML IV SCH ×2 (15:02→18:09)
[2019-08-19] MEDS: cloNIDine 0.2 mg/24hr 7DAY PATCH TD SCH (15:04)
--- NOTE | 2019-08-19 17:00 | NUR ---
DOCTOR CARVAJAL AT BEDSIDE.
[2019-08-19 18:00] VITALS: BP 178/73
[2019-08-19] MEDS: hydrALAZINE HCL 20 MG/ML VL IV PRN (18:10)
[2019-08-19] MEDS: LABETALOL HCL 5 MG/ML ML 20ML VIAL IV PRN (20:34)
[2019-08-19 22:00] VITALS: BP_SYST 173; BP_SYST 180; BP_DIAS 65; BP_DIAS 75
[2019-08-20] MEDS: MEROPENEM 1GM IVPB 100 ML IV SCH ×3 (05:11→21:40)
[2019-08-20] MEDS: LABETALOL HCL 5 MG/ML ML 20ML VIAL IV SCH ×3 (05:13→21:40)
[2019-08-20 05:14] VITALS: BP 173/69
[2019-08-20 05:47] LABS: Basophils # (auto) 0.1 uL; Basophils % (auto) 0.8 % (0.0-2.0); Eosinophils # (auto) 0.2 uL; Lymphocytes # (auto) 0.9 uL
[2019-08-20 05:50] LABS: Eosinophils % (auto) 2.3 % (0.0-7.0); Hematocrit 26.5 % (36.0-46.0); Mean Corpuscular Hgb Conc. 33.9 g/dL (32.0-36.0); Mean Corpuscular Volume 91.5 fL (80.0-100.0); Neutrophils # (auto) 8.2 uL; Neutrophils % (auto) 77.9 % (37.0-80.0); Nucleated Red Blood Cells % 0.1 %; Platelet Count (auto) 529 10^3/uL (140-450); Red Blood Cells 2.89 10^6/uL (4.0-5.20); Red Cell Distribution Width 12.8 % (11.8-14.3); White Blood Cell 10.5 10^3/uL (4.4-10.8)
[2019-08-20 06:09] LABS: Calcium 8.2 mg/dL (8.5-10.1); Magnesium 1.9 mg/dL (1.6-2.6)
[2019-08-20 06:12] LABS: BUN/Creatinine Ratio 29.9
[2019-08-20 06:31] LABS: Potassium 2.6 mmol/L (3.5-5.1)
[2019-08-20] MEDS: hydrALAZINE HCL 20 MG/ML VL IV PRN ×2 (06:53→18:34)
--- NOTE | 2019-08-20 07:17 | NUR ---
Lab called regarding critical potassium = 2.6. Dr. Douglas paged, message left. Report given to oncoming RN.
--- NOTE | 2019-08-20 07:30 | NUR ---
Opening Shift Note RECEIVED REPORT FROM NOC RN. Assumed care of patient, ASLEEP. PATIENT ON OXYGEN AT 2 LPM VIA NASAL CANNULA WITH no S/S of distress/SOB or pain. BED IN LOWEST, LOCKED POSITION WITH SIDERAILS UP x2 AND CALL LIGHT WITHIN REACH AND SITTER AT BEDSIDE. Instructed on POC and to call for assist PRN, will continue to monitor for changes Q1hr and PRN.
--- NOTE | 2019-08-20 08:38 | NUR ---
DR. CARVAJAL RETURNED PAGE. NEW ORDERS RECEIVED.
[2019-08-20] MEDS ORDERED: POTASSIUM CHL 20 Meq TABLET PO ONE (08:45)
[2019-08-20 09:00] VITALS: BP 144/59
[2019-08-20] MEDS: POTASSIUM CHL 20MEQ/100ML 100 ML IV SCH ×2 (09:47→12:47)
[2019-08-20] MEDS: FAMOTIDINE (10MG/ML) 2ML VL IV SCH (10:57)
[2019-08-20] MEDS: ENOXAPARIN SOD 40 MG/0.4 ML SYRINGE SC SCH (10:57)
[2019-08-20] MEDS: FUROSEMIDE 20 MG/2 ML VIAL IV SCH (10:57)
[2019-08-20] MEDS: VANCOMYCIN 1GM/250ML 250 ML IV SCH (10:57)
--- NOTE | 2019-08-20 11:43 | NUR ---
DR. CARVAJAL AT BEDSIDE.
[2019-08-20] MEDS: FLUCONAZOLE 200MG/100ML 100 ML IV SCH ×2 (12:48→13:00)
[2019-08-20 13:00] VITALS: BP 162/68
--- NOTE | 2019-08-20 13:20 | NUR ---
SHANNON CATHETER D/C'D PER DOCTOR'S ORDER.
[2019-08-20 17:00] VITALS: BP 165/76
--- NOTE | 2019-08-20 19:30 | NUR ---
Opening Shift Note Assumed care of patient, awake and alert. No S/S of distress/SOB or pain. Sitter at bedside for patient safety. Instructed on POC and to call for assist PRN, will continue to monitor for changes Q1hr and PRN.
[2019-08-20] MEDS ORDERED: ACETAMINOPHEN 325 MG TAB PO PRN (20:45)
[2019-08-20 21:25] VITALS: BP 151/61
[2019-08-21] VITALS (9 sets, daily range): BP systolic 144–175; BP diastolic 57–78
[2019-08-21] MEDS: LABETALOL HCL 5 MG/ML ML 20ML VIAL IV PRN ×2 (00:07→16:43)
[2019-08-21] MEDS: MEROPENEM 1GM IVPB 100 ML IV SCH ×2 (05:26→16:30)
[2019-08-21] MEDS: LABETALOL HCL 5 MG/ML ML 20ML VIAL IV SCH ×2 (05:31→13:59)
--- NOTE | 2019-08-21 07:30 | NUR ---
Opening Shift Note Assumed care of patient, awake and alert. No S/S of distress/SOB or pain. Instructed on POC and to call for assist PRN, will continue to monitor for changes Q1hr and PRN.
--- NOTE | 2019-08-21 09:00 | NUR ---
Urinary Retention patient reports that they feel like they have to urinate but they cant. Assessed patient. Bladder is taught and tender upon palpating. Bladder Scan Revealed around 400ML of urine. Helped patient to bedside commode to see if anything would come out.
[2019-08-21] MEDS: ENOXAPARIN SOD 40 MG/0.4 ML SYRINGE SC SCH (09:53)
[2019-08-21] MEDS: FAMOTIDINE (10MG/ML) 2ML VL IV SCH (09:53)
[2019-08-21] MEDS: FUROSEMIDE 20 MG/2 ML VIAL IV SCH (09:55)
[2019-08-21 10:35] LABS: BUN/Creatinine Ratio 25.8; Calcium 8.2 mg/dL (8.5-10.1)
[2019-08-21 10:39] LABS: Potassium 2.8 mmol/L (3.5-5.1)
--- NOTE | 2019-08-21 10:39 | NUR ---
critical potassium. Notified Dr. Douglas. Obtained orders for potassium replacement.
[2019-08-21] MEDS: VANCOMYCIN 1GM/250ML 250 ML IV SCH (11:14)
--- NOTE | 2019-08-21 11:30 | NUR ---
Patient had a bowel movement and urinated into commode, unassisted. Dr. Douglas made aware of this change to the patient.
[2019-08-21] MEDS: FLUCONAZOLE 200MG/100ML 100 ML IV SCH ×2 (12:29→16:06)
[2019-08-21] MEDS ORDERED: POTASSIUM CHL 20 Meq TABLET PO ONE (12:30)
[2019-08-21] MEDS ORDERED: POTASSIUM CHL 20MEQ/100ML 100 ML IV SCH (12:30)
[2019-08-21] MEDS: POTASSIUM CHL 20MEQ/100ML 100 ML IV SCH (20:10)
--- NOTE | 2019-08-22 | NUR ---
PT'S IV IN LEFT HAND HAS INFILTRATED. PT IS STILL INFUSING K-RIDER NUMBER ONE OF TWO-AT 5CC AN HOUR BECAUSE SHE STARTS CRYING WHEN KCL DRIP RATE IS MILDLY INCREASED. TWO ATTEMPTS IN RIGHT HAND WITH VEINS BLOWING EACHTIME.JON MOE IN TO RESTART IV.
[2019-08-22] MEDS: MEROPENEM 1GM IVPB 100 ML IV SCH ×3 (00:01→14:33)
[2019-08-22] MEDS: LABETALOL HCL 5 MG/ML ML 20ML VIAL IV SCH ×3 (00:02→14:14)
[2019-08-22 05:00] VITALS: BP 173/73
[2019-08-22 08:00] VITALS: BP 182/76
[2019-08-22 08:37] VITALS: BP 182/76
[2019-08-22 09:47] LABS: BUN/Creatinine Ratio 19.8; Calcium 8.2 mg/dL (8.5-10.1); Potassium 3.4 mmol/L (3.5-5.1)
[2019-08-22] MEDS: ENOXAPARIN SOD 40 MG/0.4 ML SYRINGE SC SCH (10:44)
[2019-08-22] MEDS: VANCOMYCIN 1GM/250ML 250 ML IV SCH (10:44)
[2019-08-22] MEDS: FAMOTIDINE (10MG/ML) 2ML VL IV SCH (10:44)
[2019-08-22] MEDS: LABETALOL HCL 5 MG/ML ML 20ML VIAL IV PRN (10:46)
[2019-08-22] MEDS: FLUCONAZOLE 200MG/100ML 100 ML IV SCH ×2 (12:04→13:35)
[2019-08-22 14:17] VITALS: BP 164/79
[2019-08-22] MEDS ORDERED: POTASSIUM CHL 20 Meq TABLET PO ONE (14:30)
--- NOTE | 2019-08-22 15:20 | NUR ---
Discharge instructions given as ordered. Encourage to follow up with PMD as instructed. All questions and concerns addressed. Patient verbalized understanding. IV removed with catheter intact, pressure dressing applied, hang to midline incision removed. Telemetry unit returned to ICU. Patient taken to vehicle via wheelchair with all personal belongings, accompanied by staff and family member. No distress noted at time of departure.
--- NOTE | 2019-08-23 09:59 | NUR ---
Weekend media liaison officer 08/22/19 I did not receive a page regarding the social service consult for this patient. I faxed home health order to [facility].
--- NOTE | 2019-08-23 10:56 | NUR ---
I spoke with Nereyda at [facility], they are willing to accept the patient pending authorization from [employer]. Faxed [facility] order to [employer] requesting authorization for [facility].
[2019-08-23] MEDS ORDERED: VANCOMYCIN 750mg/250ml 250 ML IV SCH (11:00)
--- NOTE | 2019-08-23 11:25 | NUR ---
I spoke with [employer] Schedule Planning Manager Fabi, she will send home health authorization to [facility].
== END 2019-08-22 15:20 | disposition home health service (06) | DRG 710 ==
LOC: EDBD 14:17 → ER 14:22 → MERGE 14:23 → TELE 14:23 → TELE-EAST 21:10 → ICU WEST 08-06 15:40 → DOU IN ICU 08-13 23:02 → TELE-CENTR 08-16 19:12 → TELE-WESTW 08-17 17:50
PROVIDERS: ADMIT Nurse Practitioner Acute Care; ATTEND Internal Medicine
PROC: 0D9670Z Drainage of Stomach with Drainage Device, Via Natural or Artificial Opening (ICD-10-PCS; 2019-08-03)
PROC: 0DBB0ZZ Excision of Ileum, Open Approach (ICD-10-PCS; 2019-08-06)
PROC: 0DNW0ZZ Release Peritoneum, Open Approach (ICD-10-PCS; 2019-08-06)
PROC: 0BH17EZ Insertion of Endotracheal Airway into Trachea, Via Natural or Artificial Opening (ICD-10-PCS; 2019-08-06)
PROC: 02HV33Z Insertion of Infusion Device into Superior Vena Cava, Percutaneous Approach (ICD-10-PCS; 2019-08-06)
PROC: 5A1955Z Respiratory Ventilation, Greater than 96 Consecutive Hours (ICD-10-PCS; principal; 2019-08-06 09:09)
DX: A41.9 Sepsis, unspecified organism (principal); R65.21 Severe sepsis with septic shock; J95.822 Acute and chronic postprocedural respiratory failure; E43 Unspecified severe protein-calorie malnutrition; E87.4 Mixed disorder of acid-base balance; K56.51 Intestinal adhesions [bands], with partial obstruction; I50.22 Chronic systolic (congestive) heart failure; I11.0 Hypertensive heart disease with heart failure; E11.40 Type 2 diabetes mellitus with diabetic neuropathy, unspecified; K44.9 Diaphragmatic hernia without obstruction or gangrene; E87.6 Hypokalemia; I70.8 Atherosclerosis of other arteries; E78.5 Hyperlipidemia, unspecified; E66.01 Morbid (severe) obesity due to excess calories; B95.2 Enterococcus as the cause of diseases classified elsewhere; I25.10 Atherosclerotic heart disease of native coronary artery without angina pectoris; Z95.5 Presence of coronary angioplasty implant and graft; Z85.3 Personal history of malignant neoplasm of breast; Z85.05 Personal history of malignant neoplasm of liver; Z79.02 Long term (current) use of antithrombotics/antiplatelets; Z79.84 Long term (current) use of oral hypoglycemic drugs; Z90.49 Acquired absence of other specified parts of digestive tract; Z90.710 Acquired absence of both cervix and uterus; Z68.29 Body mass index [BMI] 29.0-29.9, adult
CPT/HCPCS: 36415; 36600; 51702; 70450; 71045; 74018; 74176; 74177; 74250; 78452; 80048; 80053; 80076; 80202; 81001; 82040; 82248; 82805; 82962; 83036; 83690; 83735; 84100; 84478; 85007; 85025; 85027; 85610; 85730; 86850; 86900; 86901; 87040; 87070; 87075; 87077; 87081; 87086; 87186; 87205; 93005; 93017; 93306; 93970; 94002; 94003; 96374; 96375; 97110; 97116; 97163; 97530; G0378; J0131; J0153; J0330; J0690; J1450; J1756; J1815; J1956; J2001; J2185; J2248; J2250; J2405; J2704; J3480; J3490; J7060; J7131

== ENCOUNTER 2022-10-11 01:58 | Inpatient (IN) | payer MEDICAID ==
[~2022-10-11] VITALS: Ht 165.1 cm; Wt 75.0 kg
[~2022-10-11 01:58] MED LIST changes: +AML5T PO; -ASPI-231 PO; +ASPI1TAB20 PO; +CLOP75TA70 PO; +FURO1TAB33 PO; +GABA300C PO; +LISI-716 PO; -LISI10TA6 PO; +MECL12.514 PO; -MECL12.554 PO
[2022-10-11 02:49] LABS: Basophils # (auto) 0 10 ^3/uL (0-0.2); Basophils % (auto) 0.2 % (0.0-2.0); Eosinophils # (auto) 0.1 10 ^3/uL (0-0.8); Eosinophils % (auto) 0.4 % (0.0-7.0); Hematocrit 33.1 % (36.0-46.0); Lymphocytes # (auto) 0.6 10 ^3/uL (0.4-5.4); Lymphocytes % (auto) 3.9 % (10.0-50.0); Mean Corpuscular Hemoglobin 29.5 pg (28.0-32.0); Mean Corpuscular Hgb Conc. 33.1 g/dL (32.0-36.0); Monocytes # (auto) 1.4 10 ^3/uL (0-1.3); Monocytes % (auto) 8.7 % (0.0-12.0); Neutrophils # (auto) 14.3 10 ^3/uL (1.6-8.6); Neutrophils % (auto) 86.8 % (37.0-80.0); Red Blood Cells 3.72 10^6/uL (4.0-5.20); Red Cell Distribution Width 13.3 % (11.8-14.3); White Blood Cell 16.4 10^3/uL (4.4-10.8)
[2022-10-11 03:07] LABS: Albumin 3.3 g/dL (3.4-5.0); Calcium 9.1 mg/dL (8.5-10.1)
[2022-10-11 03:09] LABS: BUN/Creatinine Ratio 39.3
[2022-10-11 03:11] LABS: Bilirubin, Total 0.3 mg/dL (0.2-1.0); Total Protein 7.3 g/dL (6.4-8.2)
[2022-10-11 03:44] VITALS: BP 208/88
[2022-10-11] MEDS ORDERED: VANCOMYCIN 1GM/250ML 250 ML IV ONE (03:45)
[2022-10-11] MEDS ORDERED: FUROSEMIDE 100 MG/10ML VIAL IV ONE (03:45)
[2022-10-11] MEDS ORDERED: CEFEPIME 1GM/ 50ML 50 ML IV ONE (03:45)
[2022-10-11 03:57] VITALS: BP 183/88
[2022-10-11] MEDS ORDERED: HYDROcodone-ACET 5/325MG TAB PO PRN (04:15)
[2022-10-11] MEDS ORDERED: DEXTROSE (50%) 50ML SYRG IV PRN (04:15)
[2022-10-11] MEDS ORDERED: ONDANSETRON HCL 4 MG/2 ML VIAL IV PRN (04:15)
[2022-10-11] MEDS ORDERED: hydrALAZINE HCL 20 MG/ML VL IV PRN (04:15)
[2022-10-11] MEDS ORDERED: DOCUSATE SOD 100 MG CAP PO PRN (04:15)
[2022-10-11] MEDS ORDERED: VANCOMYCIN PER PHARMACY 0 MG IV SCH (04:15)
[2022-10-11] MEDS ORDERED: MORPHINE SULFATE INJ 2 MG/ml SYRG IV PRN (05:00)
[2022-10-11] MEDS ORDERED: NITROGLYCERIN 0.4 MG SL TAB SL PRN (05:00)
[2022-10-11 05:34] LABS: Basophils # (auto) 0 10 ^3/uL (0-0.2); Basophils % (auto) 0.2 % (0.0-2.0); Eosinophils # (auto) 0 10 ^3/uL (0-0.8); Eosinophils % (auto) 0.1 % (0.0-7.0); Hemoglobin 11.1 g/dL (12.2-16.2); Lymphocytes # (auto) 0.6 10 ^3/uL (0.4-5.4); Lymphocytes % (auto) 3.8 % (10.0-50.0); Mean Corpuscular Hemoglobin 29.7 pg (28.0-32.0); Mean Corpuscular Hgb Conc. 32.7 g/dL (32.0-36.0); Mean Corpuscular Volume 90.7 fL (80.0-100.0); Monocytes # (auto) 1.6 10 ^3/uL (0-1.3); Monocytes % (auto) 10.5 % (0.0-12.0); Neutrophils # (auto) 12.7 10 ^3/uL (1.6-8.6); Neutrophils % (auto) 85.4 % (37.0-80.0); Red Blood Cells 3.75 10^6/uL (4.0-5.20); Red Cell Distribution Width 13.1 % (11.8-14.3); White Blood Cell 14.9 10^3/uL (4.4-10.8)
[2022-10-11 05:36] LABS: Calcium 8.8 mg/dL (8.5-10.1); Potassium 4.8 mmol/L (3.5-5.1)
[2022-10-11 05:40] LABS: BUN/Creatinine Ratio 40.4; Bilirubin, Total 0.4 mg/dL (0.2-1.0); Total Protein 6.8 g/dL (6.4-8.2)
[2022-10-11 05:55] VITALS: BP 156/77
[2022-10-11 06:15] LABS: Urine Bacteria NONE SEEN /hpf (None Seen); Urine Blood Negative /uL (Negative); Urine Specific Gravity 1.011 (1.001-1.035); Urine WBC <1 /hpf (0 - 5)
[2022-10-11] MEDS: ACCU-CHEK COMFORT CURVE STRIP VI SCH ×3 (06:59→17:50)
[2022-10-11 07:39] VITALS: BP 148/79
[2022-10-11] MEDS: InsuLIN REG 1unit/0.01ml Soln (100units/ml) SC SCH ×3 (09:14→17:51)
[2022-10-11] MEDS: FUROSEMIDE 40 MG/4 ML VIAL IV SCH (09:56)
[2022-10-11] MEDS: ASCORBIC ACID 500 MG TAB PO SCH ×2 (09:57→21:36)
[2022-10-11] MEDS: ASPirin 81 mg TAB PO SCH (09:57)
[2022-10-11] MEDS: amLODIPine BESYLATE 5 MG TAB PO SCH (09:57)
[2022-10-11] MEDS ORDERED: FAMOTIDINE (10MG/ML) 2ML VL IV SCH (10:00)
[2022-10-11] MEDS: ZINC SULFATE 220mg CAP or TAB PO SCH (10:01)
[2022-10-11] MEDS: CARVEDILOL 12.5 MG TAB PO SCH ×2 (10:02→21:36)
[2022-10-11] MEDS ORDERED: LORA-483 PO (22:54)
[2022-10-11] MEDS ORDERED: POTA1TAB61 PO (22:54)
[2022-10-12] MEDS: ACCU-CHEK COMFORT CURVE STRIP VI SCH ×5 (00:34→23:44)
[2022-10-12] MEDS: ACETAMINOPHEN 325 MG TAB PO PRN (00:34)
[2022-10-12] MEDS: InsuLIN REG 1unit/0.01ml Soln (100units/ml) SC SCH ×5 (00:35→23:53)
[2022-10-12] MEDS ORDERED: IPRATROPIUM BROM 0.5 MG/2.5ML INH SOL NEB PRN (01:00)
[2022-10-12] MEDS ORDERED: ALBUTEROL SULF 2.5 MG/0.5ML(0.5%) NEB SOLN NEB PRN (01:00)
[2022-10-12 05:00] VITALS: BP 111/73
[2022-10-12] MEDS: VANCOMYCIN 1GM/250ML 250 ML IV SCH (05:25)
[2022-10-12 05:39] LABS: Basophils # (auto) 0 10 ^3/uL (0-0.2); Basophils % (auto) 0.2 % (0.0-2.0); Eosinophils # (auto) 0.1 10 ^3/uL (0-0.8); Eosinophils % (auto) 0.8 % (0.0-7.0); Hematocrit 29.3 % (36.0-46.0); Hemoglobin 10.1 g/dL (12.2-16.2); Lymphocytes # (auto) 0.8 10 ^3/uL (0.4-5.4); Lymphocytes % (auto) 7.3 % (10.0-50.0); Mean Corpuscular Hemoglobin 30.4 pg (28.0-32.0); Mean Corpuscular Hgb Conc. 34.5 g/dL (32.0-36.0); Mean Corpuscular Volume 88.2 fL (80.0-100.0); Monocytes # (auto) 1.4 10 ^3/uL (0-1.3); Monocytes % (auto) 13.2 % (0.0-12.0); Neutrophils # (auto) 8.5 10 ^3/uL (1.6-8.6); Neutrophils % (auto) 78.5 % (37.0-80.0); Nucleated Red Blood Cells % 0.1 %; Red Blood Cells 3.32 10^6/uL (4.0-5.20); Red Cell Distribution Width 12.8 % (11.8-14.3); White Blood Cell 10.9 10^3/uL (4.4-10.8)
[2022-10-12 05:50] LABS: Calcium 8.4 mg/dL (8.5-10.1); Potassium 4.4 mmol/L (3.5-5.1)
[2022-10-12 05:55] LABS: Albumin 2.6 g/dL (3.4-5.0); Bilirubin, Total 0.3 mg/dL (0.2-1.0); Total Protein 6.2 g/dL (6.4-8.2)
[2022-10-12 08:00] VITALS: BP 146/68
[2022-10-12 08:49] VITALS: BP 146/68
[2022-10-12] MEDS: ASCORBIC ACID 500 MG TAB PO SCH ×2 (10:46→21:31)
[2022-10-12] MEDS: CARVEDILOL 12.5 MG TAB PO SCH ×2 (10:48→21:19)
[2022-10-12] MEDS: ZINC SULFATE 220mg CAP or TAB PO SCH (10:48)
[2022-10-12] MEDS: FUROSEMIDE 40 MG/4 ML VIAL IV SCH (10:48)
[2022-10-12] MEDS: amLODIPine BESYLATE 5 MG TAB PO SCH (10:49)
[2022-10-12] MEDS: ASPirin 81 mg TAB PO SCH (10:49)
[2022-10-12] MEDS: CEFEPIME 1GM/ 50ML 50 ML IV SCH (10:57)
[2022-10-12 13:00] VITALS: BP 170/79
[2022-10-12] MEDS ORDERED: LISINOPRIL 20 MG TAB PO ONE (15:30)
[2022-10-12 16:49] VITALS: BP 161/63
[2022-10-12] MEDS ORDERED: FUROSEMIDE 40 MG TAB PO ONE (20:45)
[2022-10-12] MEDS: POLYETHYLENE GLYCOL 17 GM PWDR PO SCH (21:20)
[2022-10-12] MEDS: MELATONIN 5 MG TAB PO PRN (21:20)
[2022-10-12 22:00] VITALS: BP 176/69
[2022-10-12] MEDS ORDERED: ENOXAPARIN SOD 30 MG/0.3 ML SYRINGE SC SCH (22:00)
[2022-10-13] MEDS: VANCOMYCIN 1GM/250ML 250 ML IV SCH (04:36)
[2022-10-13 05:00] VITALS: BP 168/60
[2022-10-13] MEDS: ACCU-CHEK COMFORT CURVE STRIP VI SCH ×3 (05:58→17:48)
[2022-10-13] MEDS: InsuLIN REG 1unit/0.01ml Soln (100units/ml) SC SCH ×3 (06:07→17:49)
[2022-10-13 08:00] VITALS: BP 128/55
[2022-10-13 09:00] VITALS: BP 128/55
[2022-10-13] MEDS: ZINC SULFATE 220mg CAP or TAB PO SCH (10:08)
[2022-10-13] MEDS: POLYETHYLENE GLYCOL 17 GM PWDR PO SCH (10:08)
[2022-10-13] MEDS: CEFEPIME 1GM/ 50ML 50 ML IV SCH (10:08)
[2022-10-13] MEDS: ASPirin 81 mg TAB PO SCH (10:09)
[2022-10-13] MEDS: CARVEDILOL 12.5 MG TAB PO SCH ×2 (10:10→21:52)
[2022-10-13] MEDS: amLODIPine BESYLATE 5 MG TAB PO SCH (10:10)
[2022-10-13] MEDS: ASCORBIC ACID 500 MG TAB PO SCH ×2 (10:11→21:52)
[2022-10-13] MEDS: ENOXAPARIN SOD 40 MG/0.4 ML SYRINGE SC SCH (10:11)
[2022-10-13] MEDS: FUROSEMIDE 40 MG/4 ML VIAL IV SCH (10:11)
[2022-10-13 13:00] VITALS: BP 128/62
[2022-10-13] MEDS: LACTULOSE 20Gm/30ML SOLN PO SCH ×2 (14:09→21:51)
[2022-10-13 17:00] VITALS: BP 138/63
[2022-10-13] MEDS: SENNA 8.6 MG TAB PO SCH (21:52)
[2022-10-13] MEDS: MELATONIN 5 MG TAB PO PRN (21:53)
[2022-10-13 22:00] VITALS: BP 148/63
[2022-10-14] MEDS: ACCU-CHEK COMFORT CURVE STRIP VI SCH ×4 (01:09→19:33)
[2022-10-14] MEDS: InsuLIN REG 1unit/0.01ml Soln (100units/ml) SC SCH ×4 (01:12→19:32)
[2022-10-14 03:24] VITALS: BP 148/63
[2022-10-14 05:00] VITALS: BP 141/71
[2022-10-14] MEDS: VANCOMYCIN 1GM/250ML 250 ML IV SCH ×2 (05:00→07:44)
[2022-10-14] MEDS: LACTULOSE 20Gm/30ML SOLN PO SCH ×3 (06:35→22:21)
[2022-10-14 08:00] VITALS: BP 126/53
[2022-10-14 09:00] VITALS: BP 126/53
[2022-10-14] MEDS: CEFEPIME 1GM/ 50ML 50 ML IV SCH (10:00)
[2022-10-14] MEDS: ENOXAPARIN SOD 40 MG/0.4 ML SYRINGE SC SCH (10:00)
[2022-10-14] MEDS: ZINC SULFATE 220mg CAP or TAB PO SCH (10:26)
[2022-10-14] MEDS: FUROSEMIDE 40 MG/4 ML VIAL IV SCH (10:26)
[2022-10-14] MEDS: POLYETHYLENE GLYCOL 17 GM PWDR PO SCH (10:27)
[2022-10-14] MEDS: CARVEDILOL 12.5 MG TAB PO SCH ×2 (10:27→22:21)
[2022-10-14] MEDS: ASCORBIC ACID 500 MG TAB PO SCH ×2 (10:27→22:22)
[2022-10-14] MEDS: ASPirin 81 mg TAB PO SCH (10:27)
[2022-10-14] MEDS: amLODIPine BESYLATE 5 MG TAB PO SCH (10:28)
[2022-10-14 13:00] VITALS: BP 106/55
[2022-10-14] MEDS ORDERED: ALBUTEROL MEDNEB 2.5 mg/3ml NEB NEB PRN (14:30)
[2022-10-14 17:00] VITALS: BP 129/57
[2022-10-14] MEDS: SENNA 8.6 MG TAB PO SCH (22:21)
[2022-10-14] MEDS: DOXYCYCLINE 100 MG TAB/CAP PO SCH (22:22)
[2022-10-14] MEDS: MELATONIN 5 MG TAB PO PRN (22:23)
[2022-10-15] MEDS: ACCU-CHEK COMFORT CURVE STRIP VI SCH ×4 (01:00→19:59)
[2022-10-15] MEDS: InsuLIN REG 1unit/0.01ml Soln (100units/ml) SC SCH ×4 (06:11→19:59)
[2022-10-15] MEDS: LACTULOSE 20Gm/30ML SOLN PO SCH ×3 (06:11→22:00)
[2022-10-15 08:00] VITALS: BP 109/51
[2022-10-15 08:56] VITALS: BP 109/51
[2022-10-15] MEDS: ENOXAPARIN SOD 40 MG/0.4 ML SYRINGE SC SCH (10:00)
[2022-10-15] MEDS: POLYETHYLENE GLYCOL 17 GM PWDR PO SCH (10:00)
[2022-10-15] MEDS: FUROSEMIDE 40 MG/4 ML VIAL IV SCH (11:51)
[2022-10-15] MEDS: ZINC SULFATE 220mg CAP or TAB PO SCH (11:51)
[2022-10-15] MEDS: ASPirin 81 mg TAB PO SCH (11:51)
[2022-10-15] MEDS: amLODIPine BESYLATE 5 MG TAB PO SCH (11:52)
[2022-10-15] MEDS: DOXYCYCLINE 100 MG TAB/CAP PO SCH ×2 (11:52→22:09)
[2022-10-15] MEDS: CARVEDILOL 12.5 MG TAB PO SCH ×2 (11:52→22:09)
[2022-10-15] MEDS: ASCORBIC ACID 500 MG TAB PO SCH ×2 (11:53→22:09)
[2022-10-15 13:00] VITALS: BP 131/59
[2022-10-15 16:38] VITALS: BP 109/46
[2022-10-15] MEDS: ACETAMINOPHEN 325 MG TAB PO PRN (17:12)
[2022-10-15 22:00] VITALS: BP 133/64
[2022-10-15] MEDS: MELATONIN 5 MG TAB PO PRN (22:09)
[2022-10-15] MEDS: SENNA 8.6 MG TAB PO SCH (22:09)
[2022-10-16] MEDS: ACCU-CHEK COMFORT CURVE STRIP VI SCH ×4 (01:08→18:43)
[2022-10-16] MEDS: InsuLIN REG 1unit/0.01ml Soln (100units/ml) SC SCH ×4 (01:21→18:44)
[2022-10-16 05:00] VITALS: BP 140/64
[2022-10-16] MEDS: LACTULOSE 20Gm/30ML SOLN PO SCH ×3 (06:00→22:34)
[2022-10-16 07:01] LABS: Basophils # (auto) 0 10 ^3/uL (0-0.2); Basophils % (auto) 0.2 % (0.0-2.0); Eosinophils # (auto) 0.2 10 ^3/uL (0-0.8); Eosinophils % (auto) 1.4 % (0.0-7.0); Hematocrit 27.3 % (36.0-46.0); Hemoglobin 9.6 g/dL (12.2-16.2); Lymphocytes # (auto) 0.8 10 ^3/uL (0.4-5.4); Lymphocytes % (auto) 5.7 % (10.0-50.0); Mean Corpuscular Hemoglobin 30.8 pg (28.0-32.0); Mean Corpuscular Hgb Conc. 35.2 g/dL (32.0-36.0); Mean Corpuscular Volume 87.5 fL (80.0-100.0); Monocytes # (auto) 1.3 10 ^3/uL (0-1.3); Monocytes % (auto) 9.8 % (0.0-12.0); Neutrophils # (auto) 10.9 10 ^3/uL (1.6-8.6); Neutrophils % (auto) 82.9 % (37.0-80.0); Red Blood Cells 3.12 10^6/uL (4.0-5.20); Red Cell Distribution Width 12.7 % (11.8-14.3); White Blood Cell 13.2 10^3/uL (4.4-10.8)
[2022-10-16 07:16] LABS: BUN/Creatinine Ratio 63.9; Calcium 8.5 mg/dL (8.5-10.1); Potassium 4.4 mmol/L (3.5-5.1)
[2022-10-16 07:30] VITALS: BP 144/65
[2022-10-16 08:30] VITALS: BP 144/65
[2022-10-16 10:38] LABS: INR 1.02 (0.9-1.15); Partial Thromboplastin Time 29.1 sec (24.6-33.4)
[2022-10-16] MEDS: FUROSEMIDE 40 MG/4 ML VIAL IV SCH (11:19)
[2022-10-16] MEDS: ASPirin 81 mg TAB PO SCH (11:19)
[2022-10-16] MEDS: ZINC SULFATE 220mg CAP or TAB PO SCH (11:20)
[2022-10-16] MEDS: DOXYCYCLINE 100 MG TAB/CAP PO SCH ×2 (11:20→22:35)
[2022-10-16] MEDS: ASCORBIC ACID 500 MG TAB PO SCH ×2 (11:20→22:35)
[2022-10-16] MEDS: POLYETHYLENE GLYCOL 17 GM PWDR PO SCH (11:21)
[2022-10-16] MEDS: CARVEDILOL 12.5 MG TAB PO SCH ×2 (11:21→22:34)
[2022-10-16] MEDS: amLODIPine BESYLATE 5 MG TAB PO SCH (11:21)
[2022-10-16] MEDS: ENOXAPARIN SOD 40 MG/0.4 ML SYRINGE SC SCH (11:22)
[2022-10-16 16:32] VITALS: BP 119/63
[2022-10-16 22:00] VITALS: BP 136/74
[2022-10-16] MEDS: MELATONIN 5 MG TAB PO PRN (22:35)
[2022-10-16] MEDS: SENNA 8.6 MG TAB PO SCH (22:35)
[2022-10-17 05:00] VITALS: BP 118/59
[2022-10-17] MEDS: ACCU-CHEK COMFORT CURVE STRIP VI SCH ×4 (06:24→18:00)
[2022-10-17] MEDS: InsuLIN REG 1unit/0.01ml Soln (100units/ml) SC SCH ×4 (06:26→18:00)
[2022-10-17] MEDS: LACTULOSE 20Gm/30ML SOLN PO SCH ×2 (06:28→13:21)
[2022-10-17 08:00] VITALS: BP 131/84
[2022-10-17 09:00] VITALS: BP 131/84
[2022-10-17] MEDS: POLYETHYLENE GLYCOL 17 GM PWDR PO SCH (10:00)
[2022-10-17] MEDS: ENOXAPARIN SOD 40 MG/0.4 ML SYRINGE SC SCH (10:10)
[2022-10-17] MEDS: ASPirin 81 mg TAB PO SCH (10:10)
[2022-10-17] MEDS: DOXYCYCLINE 100 MG TAB/CAP PO SCH (10:11)
[2022-10-17] MEDS: ZINC SULFATE 220mg CAP or TAB PO SCH (10:11)
[2022-10-17] MEDS: CARVEDILOL 12.5 MG TAB PO SCH (10:11)
[2022-10-17] MEDS: ASCORBIC ACID 500 MG TAB PO SCH (10:12)
[2022-10-17] MEDS: amLODIPine BESYLATE 5 MG TAB PO SCH (10:12)
[2022-10-17] MEDS: FUROSEMIDE 40 MG/4 ML VIAL IV SCH (10:13)
[2022-10-17 13:00] VITALS: BP 131/56
[2022-10-17] MEDS ORDERED: DOX100T PO (15:14)
[2022-10-17 17:00] VITALS: BP 152/66
[2022-10-17 18:12] VITALS: BP 131/56
== END 2022-10-17 19:11 | disposition home health service (06) | DRG 194 ==
LOC: ER 01:58 → EDBD 01:58 → TELE 04:49 → TELE-WESTW 21:50
PROVIDERS: ADMIT Nurse Practitioner Family; ATTEND Internal Medicine
PROC: 5A09357 Assistance with Respiratory Ventilation, Less than 24 Consecutive Hours, Continuous Positive Airway Pressure (ICD-10-PCS; 2022-10-11)
PROC: 0W9B3ZZ Drainage of Left Pleural Cavity, Percutaneous Approach (ICD-10-PCS; principal; 2022-10-16)
DX: I11.0 Hypertensive heart disease with heart failure (principal); J96.01 Acute respiratory failure with hypoxia; E87.1 Hypo-osmolality and hyponatremia; J90 Pleural effusion, not elsewhere classified; E11.9 Type 2 diabetes mellitus without complications; D72.829 Elevated white blood cell count, unspecified; I50.33 Acute on chronic diastolic (congestive) heart failure; J98.11 Atelectasis; Z20.822 Contact with and (suspected) exposure to COVID-19; K59.00 Constipation, unspecified; I25.10 Atherosclerotic heart disease of native coronary artery without angina pectoris; Z79.02 Long term (current) use of antithrombotics/antiplatelets; Z79.899 Other long term (current) drug therapy; Z83.3 Family history of diabetes mellitus; Z85.05 Personal history of malignant neoplasm of liver; Z85.3 Personal history of malignant neoplasm of breast; Z85.528 Personal history of other malignant neoplasm of kidney; Z98.61 Coronary angioplasty status; Z79.84 Long term (current) use of oral hypoglycemic drugs
CPT/HCPCS: 36415; 36600; 71045; 74176; 76604; 76942; 80048; 80053; 80202; 81001; 82565; 82805; 82962; 83036; 83605; 83735; 83880; 83986; 84484; 85025; 85610; 85730; 87040; 87070; 87205; 87426; 89051; 93005; 93306; 94660; 96365; 96367; 96375; 97110; 97116; 97163; 97530; 99291; G0378; J1815; J3490

== ENCOUNTER 2022-10-18 06:32 | Inpatient (IN) | payer MEDICAID ==
[2022-10-18] VITALS (9 sets, daily range): BP systolic 117–140; BP diastolic 45–60
[~2022-10-18] VITALS: Ht 165.1 cm; Wt 69.1 kg
[~2022-10-18 06:32] MED LIST changes: -ALBUAER3 IN; -CLOP75TA70 PO; -DEXT1SYP6 PO; +DOX100T PO; -FURO40TA4 PO; -GABA300C PO; -GABA300C10 PO; -IPRIH IN; +LORA-483 PO; -METH4PAK PO; +POTA1TAB61 PO
[2022-10-18] MEDS ORDERED: SODIUM CHLORIDE 0.9% 500 ML IVB ONE (06:45)
[2022-10-18 07:36] LABS: Red Blood Cells 1.97 10^6/uL (4.0-5.20); Red Cell Distribution Width 12.7 % (11.8-14.3)
[2022-10-18 07:40] LABS: Hematocrit 18.2 % (36.0-46.0); Mean Corpuscular Hemoglobin 30.6 pg (28.0-32.0); Mean Corpuscular Hgb Conc. 33.2 g/dL (32.0-36.0); Mean Corpuscular Volume 92.1 fL (80.0-100.0); White Blood Cell 13.2 10^3/uL (4.4-10.8)
[2022-10-18 07:48] LABS: Basophils % (manual) 0 (0.0-2.0); Blast Cells 0; Eosinophils % (manual) 0 (0-7); Myelocytes % 0; Promyelocytes % 0; Reactive Lymphocytes 0
[2022-10-18] MEDS ORDERED: PANTOPRAZOLE 40 MG/10 ML VIAL INJ IV ONE (08:00)
[2022-10-18 08:01] LABS: Albumin 1.7 g/dL (3.4-5.0); BUN/Creatinine Ratio 88.5; Bilirubin, Total 0.3 mg/dL (0.2-1.0); Calcium 7.6 mg/dL (8.5-10.1); Potassium 5.1 mmol/L (3.5-5.1); Total Protein 4.6 g/dL (6.4-8.2)
[2022-10-18] MEDS ORDERED: MORPHINE SULFATE INJ 2 MG/ml SYRG IV PRN (10:45)
[2022-10-18] MEDS ORDERED: NITROGLYCERIN 0.4 MG SL TAB SL PRN (10:45)
[2022-10-18] MEDS ORDERED: DEXTROSE (50%) 50ML SYRG IV PRN (10:45)
[2022-10-18 11:24] LABS: Band Neutrophils % (manual) 8; Lymphocytes % (manual) 6 (10.0-50.0); Metamyelocytes % 5; Monocytes % (manual) 8 (0-12)
[2022-10-18] MEDS: ACCU-CHEK COMFORT CURVE STRIP VI SCH ×3 (11:43→22:01)
[2022-10-18] MEDS: InsuLIN REG 1unit/0.01ml Soln (100units/ml) SC SCH ×3 (11:51→22:02)
[2022-10-18] MEDS ORDERED: FUROSEMIDE 20 MG/2 ML VIAL IV ONE (12:30)
[2022-10-18 13:30] LABS: Urine Bacteria NONE SEEN /hpf (None Seen); Urine Blood Negative /uL (Negative); Urine Specific Gravity 1.014 (1.001-1.035); Urine WBC 1 /hpf (0 - 5)
[2022-10-18] MEDS ORDERED: OCTREOTIDE ACETATE 100 MCG in SODIUM CHL 0.9% 50 ML IV ONE (14:15)
[2022-10-18] MEDS ORDERED: PANTOPRAZOLE 80 MG in SODIUM CHL 0.9% 100 ML IV ONE (14:15)
[2022-10-18] MEDS: PANTOPRAZOLE 40mg/50ML NS AE 50 ML IV SCH ×2 (16:22→20:51)
[2022-10-18] MEDS: OCTREOTIDE ACETATE 500 MCG in SODIUM CHL 0.9% 99 ML IV SCH (16:22)
[2022-10-18 18:30] LABS: Hematocrit 24.7 % (36.0-46.0); Hemoglobin 8.4 g/dL (12.2-16.2)
[2022-10-18 20:00] LABS: INR 1.12 (0.9-1.15)
[2022-10-19] MEDS: OCTREOTIDE ACETATE 500 MCG in SODIUM CHL 0.9% 99 ML IV SCH (01:35)
[2022-10-19] MEDS: PANTOPRAZOLE 40mg/50ML NS AE 50 ML IV SCH ×2 (01:36→05:26)
[2022-10-19 05:00] VITALS: BP 131/47
[2022-10-19] MEDS: ACCU-CHEK COMFORT CURVE STRIP VI SCH ×4 (05:50→22:18)
[2022-10-19] MEDS: InsuLIN REG 1unit/0.01ml Soln (100units/ml) SC SCH ×4 (05:51→22:42)
[2022-10-19 08:28] VITALS: BP 128/53
[2022-10-19] MEDS ORDERED: LIDOCAINE VISCOUS 2% 15ML UD ONE (09:03)
[2022-10-19] MEDS ORDERED: diphenhdrAMINE HCL 50 MG/1 ML VL ONE (09:03)
[2022-10-19] MEDS ORDERED: MIDAZOLAM HCL 2MG/2ML 2ml VIAL (1mg/ml) ONE (09:03)
[2022-10-19] MEDS ORDERED: fentaNYL CITRATE 100 MCG/2 ML VL ONE (09:03)
[2022-10-19] MEDS ORDERED: ALBUTEROL SULF 2.5 MG/0.5ML(0.5%) NEB SOLN NEB PRN (12:15)
[2022-10-19 12:30] VITALS: BP 146/60
[2022-10-19 13:37] VITALS: BP 146/60
[2022-10-19 14:39] LABS: Basophils # (auto) 0.1 10 ^3/uL (0-0.2); Eosinophils # (auto) 0.3 10 ^3/uL (0-0.8); Neutrophils # (auto) 10.1 10 ^3/uL (1.6-8.6); Neutrophils % (auto) 77.7 % (37.0-80.0); Red Blood Cells 2.74 10^6/uL (4.0-5.20)
[2022-10-19 14:40] LABS: Basophils % (auto) 0.6 % (0.0-2.0); Eosinophils % (auto) 2.4 % (0.0-7.0); Hematocrit 23.3 % (36.0-46.0); Hemoglobin 7.9 g/dL (12.2-16.2); Lymphocytes # (auto) 1.1 10 ^3/uL (0.4-5.4); Lymphocytes % (auto) 8.5 % (10.0-50.0); Mean Corpuscular Hemoglobin 28.8 pg (28.0-32.0); Mean Corpuscular Hgb Conc. 33.9 g/dL (32.0-36.0); Monocytes # (auto) 1.4 10 ^3/uL (0-1.3); Monocytes % (auto) 10.8 % (0.0-12.0); Nucleated Red Blood Cells % 0.1 %
[2022-10-19 14:47] LABS: Red Cell Distribution Width 20.6 % (11.8-14.3)
[2022-10-19 15:39] LABS: Potassium 4.9 mmol/L (3.5-5.1)
[2022-10-19 17:14] VITALS: BP 125/53
[2022-10-19 22:00] VITALS: BP 124/47
[2022-10-19 22:10] LABS: Hemoglobin 7.3 g/dL (12.2-16.2)
[2022-10-19 22:12] LABS: Hematocrit 21.2 % (36.0-46.0)
[2022-10-19] MEDS: MELATONIN 5 MG TAB PO PRN (22:17)
[2022-10-20 05:00] VITALS: BP 144/44
[2022-10-20] MEDS: InsuLIN REG 1unit/0.01ml Soln (100units/ml) SC SCH ×4 (06:16→22:26)
[2022-10-20] MEDS: ACCU-CHEK COMFORT CURVE STRIP VI SCH ×4 (06:16→22:07)
[2022-10-20 08:05] VITALS: BP 137/53
[2022-10-20 09:13] VITALS: BP 137/53
[2022-10-20 12:30] VITALS: BP 148/58
[2022-10-20 14:53] LABS: Hematocrit 23.5 % (36.0-46.0); Hemoglobin 7.6 g/dL (12.2-16.2); Mean Corpuscular Hgb Conc. 32.1 g/dL (32.0-36.0); Mean Corpuscular Volume 87.2 fL (80.0-100.0); Red Cell Distribution Width 19.3 % (11.8-14.3); White Blood Cell 13.7 10^3/uL (4.4-10.8)
[2022-10-20 14:54] LABS: Basophils % (manual) 0 (0.0-2.0); Blast Cells 0; Metamyelocytes % 0; Promyelocytes % 0
[2022-10-20 14:57] LABS: BUN/Creatinine Ratio 38.6; Calcium 8.2 mg/dL (8.5-10.1); Potassium 4.6 mmol/L (3.5-5.1)
[2022-10-20] MEDS ORDERED: SODIUM FERR GLUC 62.5MG/5ML 125 MG in SODIUM CHL 0.9% 100 ML IV ONE (16:00)
[2022-10-20 16:49] VITALS: BP 151/65
[2022-10-20 18:10] LABS: Band Neutrophils % (manual) 19; Eosinophils % (manual) 2 (0-7); Lymphocytes % (manual) 7 (10.0-50.0); Monocytes % (manual) 8 (0-12); Myelocytes % 2; Reactive Lymphocytes 1
[2022-10-20 22:00] VITALS: BP 143/66
[2022-10-20] MEDS: PANTOPRAZOLE 40 MG/10 ML VIAL INJ IV SCH (22:06)
[2022-10-21] MEDS: ACCU-CHEK COMFORT CURVE STRIP VI SCH ×4 (05:22→21:28)
[2022-10-21 05:27] VITALS: BP 156/60
[2022-10-21] MEDS: InsuLIN REG 1unit/0.01ml Soln (100units/ml) SC SCH ×4 (05:27→21:29)
[2022-10-21 05:56] LABS: Hematocrit 23.4 % (36.0-46.0); Hemoglobin 8.3 g/dL (12.2-16.2); Mean Corpuscular Hemoglobin 29.7 pg (28.0-32.0); Mean Corpuscular Hgb Conc. 35.4 g/dL (32.0-36.0); Red Blood Cells 2.79 10^6/uL (4.0-5.20); White Blood Cell 13.3 10^3/uL (4.4-10.8)
[2022-10-21 06:12] LABS: Basophils % (manual) 0 (0.0-2.0); Blast Cells 0; Eosinophils % (manual) 0 (0-7); Metamyelocytes % 0; Myelocytes % 0; Promyelocytes % 0; Reactive Lymphocytes 0
[2022-10-21 07:57] LABS: Band Neutrophils % (manual) 81; Lymphocytes % (manual) 9 (10.0-50.0); Monocytes % (manual) 10 (0-12)
[2022-10-21 08:00] VITALS: BP 165/67
[2022-10-21 08:15] VITALS: BP 165/67
[2022-10-21] MEDS: PANTOPRAZOLE 40 MG/10 ML VIAL INJ IV SCH ×2 (10:03→21:28)
[2022-10-21 13:00] VITALS: BP 144/53
[2022-10-21] MEDS: SODIUM FERR GLUC 62.5MG/5ML 125 MG in SODIUM CHL 0.9% 100 ML IV SCH (13:09)
[2022-10-21 17:00] VITALS: BP 147/67
[2022-10-21] MEDS: Ensure HIGH Protein Chocolate 8oz Bottle PO SCH (17:33)
[2022-10-21] MEDS: MELATONIN 5 MG TAB PO PRN (21:28)
[2022-10-21 22:00] VITALS: BP 154/58
[2022-10-22 05:00] VITALS: BP 158/62
[2022-10-22 06:19] LABS: Urine Bacteria FEW /hpf (None Seen); Urine Blood Negative /uL (Negative); Urine Budding Yeast MANY /hpf (None Seen); Urine Specific Gravity 1.014 (1.001-1.035); Urine WBC 10 /hpf (0 - 5)
[2022-10-22] MEDS: ACCU-CHEK COMFORT CURVE STRIP VI SCH ×3 (06:38→18:04)
[2022-10-22] MEDS: InsuLIN REG 1unit/0.01ml Soln (100units/ml) SC SCH ×3 (06:48→18:04)
[2022-10-22 08:00] VITALS: BP 145/58
[2022-10-22 08:50] VITALS: BP 158/62
[2022-10-22 09:00] VITALS: BP 145/58
[2022-10-22] MEDS: Ensure HIGH Protein Chocolate 8oz Bottle PO SCH ×2 (09:49→18:03)
[2022-10-22] MEDS: PANTOPRAZOLE 40 MG/10 ML VIAL INJ IV SCH (09:49)
[2022-10-22 13:00] VITALS: BP 129/48
[2022-10-22] MEDS: SODIUM FERR GLUC 62.5MG/5ML 125 MG in SODIUM CHL 0.9% 100 ML IV SCH (13:43)
[2022-10-22 13:55] LABS: Hematocrit 21.5 % (36.0-46.0)
[2022-10-22 13:57] LABS: Hemoglobin 7.2 g/dL (12.2-16.2)
[2022-10-22] MEDS ORDERED: ASCO1TAB27 PO (16:28)
[2022-10-22] MEDS ORDERED: FERR-7 PO (16:28)
[2022-10-22 17:05] VITALS: BP 154/67
[2022-10-22 17:35] LABS: Hematocrit 22.4 % (36.0-46.0); Hemoglobin 7.5 g/dL (12.2-16.2)
== END 2022-10-22 18:45 | disposition home health service (06) | DRG 253 ==
LOC: ER 06:32 → EDBD 06:32 → TELE 10:39 → TELE-EAST 18:45
PROVIDERS: ADMIT Hospitalist; ATTEND Hospitalist
PROC: 30233N1 Transfusion of Nonautologous Red Blood Cells into Peripheral Vein, Percutaneous Approach (ICD-10-PCS; principal; 2022-10-18)
PROC: 0DJ08ZZ Inspection of Upper Intestinal Tract, Via Natural or Artificial Opening Endoscopic (ICD-10-PCS; 2022-10-19)
DX: K92.2 Gastrointestinal hemorrhage, unspecified (principal); J96.01 Acute respiratory failure with hypoxia; E87.1 Hypo-osmolality and hyponatremia; D50.0 Iron deficiency anemia secondary to blood loss (chronic); E13.9 Other specified diabetes mellitus without complications; E78.5 Hyperlipidemia, unspecified; I50.9 Heart failure, unspecified; I11.0 Hypertensive heart disease with heart failure; E87.8 Other disorders of electrolyte and fluid balance, not elsewhere classified; Z20.822 Contact with and (suspected) exposure to COVID-19; K44.9 Diaphragmatic hernia without obstruction or gangrene; K59.00 Constipation, unspecified; Z82.49 Family history of ischemic heart disease and other diseases of the circulatory system; Z83.3 Family history of diabetes mellitus; Z85.3 Personal history of malignant neoplasm of breast; Z90.710 Acquired absence of both cervix and uterus; Z85.05 Personal history of malignant neoplasm of liver; Z88.8 Allergy status to other drugs, medicaments and biological substances; Z90.49 Acquired absence of other specified parts of digestive tract
CPT/HCPCS: 36415; 36430; 71045; 74176; 80048; 80053; 81001; 82962; 83690; 85007; 85014; 85018; 85025; 85027; 85610; 86850; 86900; 86901; 86920; 87081; 87426; 87493; 93005; 96361; 96365; 96368; 96372; 96375; 97110; 97116; 97163; 97530; 99291; C9113; G0378; J1815; J2250

== ENCOUNTER 2023-08-06 10:01 | Inpatient (IN) | payer MEDICAID ==
[~2023-08-06] VITALS: Ht 160 cm; Wt 68.3 kg
[2023-08-06] VITALS (7 sets, daily range): BP systolic 119; BP diastolic 54; PULSE 69–88; RESP 18–27; TEMP 98.9; O2SAT 93–99
[~2023-08-06 10:01] MED LIST changes: +ASCO1TAB27 PO; -ASPI1TAB20 PO; -CLOP75TA28 PO; -DOX100T PO; +FERR-7 PO; -LISI-716 PO; -MECL12.514 PO; +MECL1TAB31 PO
[2023-08-06] MEDS ORDERED: FUROSEMIDE 100 MG/10ML VIAL IV ONE (11:00)
[2023-08-06] MEDS ORDERED: cefTRIAXone 1GM/50ML D5W 50 ML IV ONE (11:00)
[2023-08-06 11:01] LABS: Basophils # (auto) 0 10 ^3/uL (0-0.2); Basophils % (auto) 0.3 % (0.0-2.0); Eosinophils # (auto) 0.1 10 ^3/uL (0-0.8); Eosinophils % (auto) 0.8 % (0.0-7.0); Hematocrit 36.7 % (36.0-46.0); Hemoglobin 12.3 g/dL (12.2-16.2); Lymphocytes # (auto) 1.2 10 ^3/uL (0.4-5.4); Lymphocytes % (auto) 11.9 % (10.0-50.0); Mean Corpuscular Hemoglobin 29.2 pg (28.0-32.0); Mean Corpuscular Hgb Conc. 33.5 g/dL (32.0-36.0); Mean Corpuscular Volume 87.2 fL (80.0-100.0); Monocytes # (auto) 1.2 10 ^3/uL (0-1.3); Monocytes % (auto) 12.1 % (0.0-12.0); Neutrophils # (auto) 7.3 10 ^3/uL (1.6-8.6); Neutrophils % (auto) 74.9 % (37.0-80.0); Nucleated Red Blood Cells % 0.1 %; Red Cell Distribution Width 12.6 % (11.8-14.3); White Blood Cell 9.8 10^3/uL (4.4-10.8)
[2023-08-06 11:16] LABS: Alanine Aminotransferase 18 U/L (7-40); Albumin 4.4 g/dL (3.2-4.8); Alkaline Phosphatase 115 U/L (46-116); Anion Gap 8 (5-15); Aspartate Aminotransferase 25 U/L (13-40); BUN/Creatinine Ratio 12.5 (10.0-20.0); Bilirubin, Total 0.5 mg/dL (0.2-1.0); Blood Urea Nitrogen 7 mg/dL (9-23); Calcium 9.2 mg/dL (8.5-10.1); Carbon Dioxide 25 mmol/L (20-30); Chloride 89 mmol/L (98-107); Glucose 137 mg/dL (74-106); Sodium 122 mmol/L (136-145); Total Protein 7.2 g/dL (5.7-8.2)
[2023-08-06] MEDS ORDERED: FUROSEMIDE 20 MG/2 ML VIAL IV ONE (11:45)
[2023-08-06 12:20] LABS: CRP High Sensitivity 2.35 mg/dL (<1.0)
[2023-08-06 12:48] LABS: Urine Bacteria FEW /hpf (None Seen); Urine Blood Negative /uL (Negative); Urine Clarity Clear (Clear); Urine Color Colorless (Yellow); Urine Hyaline Cast FEW /lpf (0 - 2); Urine Protein, UAD TRACE (Negative); Urine Specific Gravity 1.009 (1.001-1.035); Urine Urobilinogen Normal (Negative); Urine WBC 1 /hpf (0 - 5); Urine pH 6.5 (5.0-8.0)
[2023-08-06 13:12] LABS: COVID19 ANTIGEN SOFIA FIA NEGATIVE (NEGATIVE)
[2023-08-06 13:15] LABS: Rapid Influenza A Negative (Negative); Rapid Influenza B Negative (Negative)
[2023-08-06] MEDS ORDERED: ONDANSETRON HCL 4 MG/2 ML VIAL IV PRN (15:00)
[2023-08-06] MEDS ORDERED: MORPHINE SULFATE INJ 2 MG/ml SYRG IV PRN ×2 (15:00)
[2023-08-06] MEDS ORDERED: ACETAMINOPHEN 325 MG TAB PO PRN (15:00)
[2023-08-06] MEDS ORDERED: NITROGLYCERIN 0.4 MG SL TAB SL PRN (15:00)
[2023-08-06] MEDS: AZITHROMYCIN 500MG/ 250ML 250 ML IV SCH (16:24)
[2023-08-06] MEDS: amLODIPine BESYLATE 5 MG TAB PO SCH (18:12)
[2023-08-06] MEDS: IPRATROPIUM BROM 0.5 MG/2.5ML INH SOL NEB SCH ×2 (18:27→22:08)
[2023-08-06] MEDS: ALBUTEROL SULF 2.5 MG/0.5ML(0.5%) NEB SOLN NEB SCH ×2 (18:27→22:08)
[2023-08-06] MEDS: HYDROcodone-ACET 5/325MG TAB PO PRN (20:13)
[2023-08-06] MEDS: methylPREDNISolone SOD SUCC 40 MG/ML VL IV SCH (21:34)
[2023-08-06] MEDS: ATORVASTATIN 20 MG TAB PO SCH (21:34)
[2023-08-06] MEDS: METOPROLOL TARTRATE 25 MG TAB PO SCH (21:34)
[2023-08-07] VITALS (18 sets, daily range): BP systolic 105–152; BP diastolic 57–76; PULSE 68–102; RESP 16–20; TEMP 97.5–98.7; O2SAT 91–100
[2023-08-07] MEDS ORDERED: LOSA25TA15 PO (01:03)
[2023-08-07] MEDS: methylPREDNISolone SOD SUCC 40 MG/ML VL IV SCH ×2 (05:55→22:03)
[2023-08-07 06:18] LABS: Basophils # (auto) 0 10 ^3/uL (0-0.2); Basophils % (auto) 0.1 % (0.0-2.0); Eosinophils # (auto) 0 10 ^3/uL (0-0.8); Eosinophils % (auto) 0.1 % (0.0-7.0); Hematocrit 35.4 % (36.0-46.0); Hemoglobin 12.1 g/dL (12.2-16.2); Lymphocytes # (auto) 0.5 10 ^3/uL (0.4-5.4); Lymphocytes % (auto) 9.2 % (10.0-50.0); Mean Corpuscular Hemoglobin 29.2 pg (28.0-32.0); Mean Corpuscular Hgb Conc. 34.2 g/dL (32.0-36.0); Mean Corpuscular Volume 85.5 fL (80.0-100.0); Monocytes # (auto) 0.1 10 ^3/uL (0-1.3); Monocytes % (auto) 2.5 % (0.0-12.0); Neutrophils # (auto) 5.1 10 ^3/uL (1.6-8.6); Neutrophils % (auto) 88.1 % (37.0-80.0); Nucleated Red Blood Cells % 0.1 %; Red Blood Cells 4.14 10^6/uL (4.0-5.20); Red Cell Distribution Width 12.8 % (11.8-14.3); White Blood Cell 5.8 10^3/uL (4.4-10.8)
[2023-08-07 06:24] LABS: Alanine Aminotransferase 16 U/L (7-40); Albumin 4.1 g/dL (3.2-4.8); Alkaline Phosphatase 107 U/L (46-116); Anion Gap 5 (5-15); Aspartate Aminotransferase 20 U/L (13-40); BUN/Creatinine Ratio 18.6 (10.0-20.0); Blood Urea Nitrogen 13 mg/dL (9-23); Calcium 8.9 mg/dL (8.7-10.4); Carbon Dioxide 29 mmol/L (20-30); Chloride 87 mmol/L (98-107); Glucose 190 mg/dL (74-106); Potassium 4.2 mmol/L (3.5-5.1); Sodium 121 mmol/L (136-145)
[2023-08-07 06:25] LABS: Bilirubin, Total 0.5 mg/dL (0.2-1.0); INR 0.89 (0.9-1.15); Prothrombin Time 9.4 sec (9.3-11.8); Total Protein 6.9 g/dL (5.7-8.2)
[2023-08-07] MEDS: ALBUTEROL SULF 2.5 MG/0.5ML(0.5%) NEB SOLN NEB SCH ×5 (07:09→22:23)
[2023-08-07] MEDS: IPRATROPIUM BROM 0.5 MG/2.5ML INH SOL NEB SCH ×5 (07:10→22:24)
[2023-08-07 09:28] LABS: Hepatitis B Surface Antigen Negative (Negative)
[2023-08-07 09:50] LABS: Hepatitis C Antibody Negative (Negative)
[2023-08-07] MEDS: METOPROLOL TARTRATE 25 MG TAB PO SCH ×2 (09:53→22:03)
[2023-08-07] MEDS: cefTRIAXone 1GM/50ML D5W 50 ML IV SCH (09:53)
[2023-08-07] MEDS: FUROSEMIDE 40 MG/4 ML VIAL IV SCH (09:53)
[2023-08-07] MEDS: AZITHROMYCIN 500MG/ 250ML 250 ML IV SCH (09:54)
[2023-08-07] MEDS: ENOXAPARIN SOD 40 MG/0.4 ML SYRINGE SC SCH (10:00)
[2023-08-07] MEDS ORDERED: FUROSEMIDE 40 MG/4 ML VIAL IV SCH (13:45)
[2023-08-07] MEDS: amLODIPine BESYLATE 5 MG TAB PO SCH (18:02)
[2023-08-07] MEDS: ATORVASTATIN 20 MG TAB PO SCH (22:01)
[2023-08-08] VITALS (14 sets, daily range): BP systolic 136–152; BP diastolic 57–69; PULSE 74–104; RESP 16–18; TEMP 97.5–98.5; O2SAT 96–100
[2023-08-08 01:44] LABS: Sodium Urine < 10 mmol/L (40-220)
[2023-08-08 01:51] LABS: Creatinine, Urine 70.06 mg/dL (30.0-125.0)
[2023-08-08] MEDS: IPRATROPIUM BROM 0.5 MG/2.5ML INH SOL NEB SCH ×6 (06:16→22:00)
[2023-08-08] MEDS: ALBUTEROL SULF 2.5 MG/0.5ML(0.5%) NEB SOLN NEB SCH ×6 (06:16→22:00)
[2023-08-08] MEDS: cefTRIAXone 1GM/50ML D5W 50 ML IV SCH (10:32)
[2023-08-08] MEDS: METOPROLOL TARTRATE 25 MG TAB PO SCH ×2 (10:33→21:35)
[2023-08-08] MEDS: ENOXAPARIN SOD 40 MG/0.4 ML SYRINGE SC SCH (10:34)
[2023-08-08] MEDS: methylPREDNISolone SOD SUCC 40 MG/ML VL IV SCH ×2 (10:34→21:33)
[2023-08-08] MEDS: FUROSEMIDE 40 MG/4 ML VIAL IV SCH (10:35)
[2023-08-08] MEDS: AZITHROMYCIN 500MG/ 250ML 250 ML IV SCH (10:36)
[2023-08-08 14:39] LABS: Alanine Aminotransferase 16 U/L (7-40); Albumin 4.1 g/dL (3.2-4.8); Alkaline Phosphatase 97 U/L (46-116); Anion Gap 6 (5-15); Aspartate Aminotransferase 18 U/L (13-40); BUN/Creatinine Ratio 28.8 (10.0-20.0); Bilirubin, Total 0.3 mg/dL (0.2-1.0); Blood Urea Nitrogen 19 mg/dL (9-23); Calcium 8.9 mg/dL (8.7-10.4); Carbon Dioxide 31 mmol/L (20-30); Chloride 84 mmol/L (98-107); Glucose 229 mg/dL (74-106); Potassium 4.3 mmol/L (3.5-5.1); Sodium 121 mmol/L (136-145); Total Protein 6.8 g/dL (5.7-8.2)
[2023-08-08] MEDS: amLODIPine BESYLATE 5 MG TAB PO SCH (19:09)
[2023-08-08] MEDS: UREA 15gm PO Powder PKG PO SCH ×2 (21:33→21:44)
[2023-08-08] MEDS: ATORVASTATIN 20 MG TAB PO SCH (21:33)
[2023-08-09] VITALS (18 sets, daily range): BP systolic 137–152; BP diastolic 54–67; PULSE 76–106; RESP 18–20; TEMP 97.1–98.5; O2SAT 94–100
[2023-08-09] MEDS: IPRATROPIUM BROM 0.5 MG/2.5ML INH SOL NEB SCH ×5 (07:15→22:00)
[2023-08-09] MEDS: ALBUTEROL SULF 2.5 MG/0.5ML(0.5%) NEB SOLN NEB SCH ×5 (07:15→22:00)
[2023-08-09] MEDS: cefTRIAXone 1GM/50ML D5W 50 ML IV SCH (08:48)
[2023-08-09] MEDS: methylPREDNISolone SOD SUCC 40 MG/ML VL IV SCH ×2 (10:25→21:08)
[2023-08-09] MEDS: ENOXAPARIN SOD 40 MG/0.4 ML SYRINGE SC SCH (10:26)
[2023-08-09] MEDS: METOPROLOL TARTRATE 25 MG TAB PO SCH ×2 (10:26→21:09)
[2023-08-09] MEDS: FUROSEMIDE 40 MG/4 ML VIAL IV SCH (10:26)
[2023-08-09] MEDS: AZITHROMYCIN 500MG/ 250ML 250 ML IV SCH (12:07)
[2023-08-09] MEDS: UREA 15gm PO Powder PKG PO SCH ×2 (12:07→21:10)
[2023-08-09] MEDS: HYDROcodone-ACET 5/325MG TAB PO PRN (12:27)
[2023-08-09] MEDS: hydrALAZINE HCL 20 MG/ML VL IV PRN (12:27)
[2023-08-09] MEDS: amLODIPine BESYLATE 5 MG TAB PO SCH (17:39)
[2023-08-09] MEDS: ATORVASTATIN 20 MG TAB PO SCH (21:08)
[2023-08-10] VITALS (19 sets, daily range): BP systolic 149–157; BP diastolic 59–71; PULSE 80–101; RESP 18–20; TEMP 97.3–98.7; O2SAT 94–100
[2023-08-10] MEDS: hydrALAZINE HCL 20 MG/ML VL IV PRN (05:25)
[2023-08-10 06:32] LABS: Anion Gap 5 (5-15); Carbon Dioxide 35 mmol/L (20-30); Chloride 85 mmol/L (98-107); Potassium 4.5 mmol/L (3.5-5.1); Sodium 125 mmol/L (136-145)
[2023-08-10 06:34] LABS: Calcium 9.5 mg/dL (8.7-10.4)
[2023-08-10] MEDS: ALBUTEROL SULF 2.5 MG/0.5ML(0.5%) NEB SOLN NEB SCH ×5 (06:34→22:01)
[2023-08-10] MEDS: IPRATROPIUM BROM 0.5 MG/2.5ML INH SOL NEB SCH ×5 (06:34→22:01)
[2023-08-10 06:38] LABS: Glucose 283 mg/dL (74-106)
[2023-08-10 06:39] LABS: BUN/Creatinine Ratio 90.1 (10.0-20.0)
[2023-08-10 06:42] LABS: Blood Urea Nitrogen 73 mg/dL (9-23)
[2023-08-10] MEDS: cefTRIAXone 1GM/50ML D5W 50 ML IV SCH (10:32)
[2023-08-10] MEDS: AZITHROMYCIN 500MG/ 250ML 250 ML IV SCH (10:32)
[2023-08-10] MEDS: ENOXAPARIN SOD 40 MG/0.4 ML SYRINGE SC SCH (10:33)
[2023-08-10] MEDS: METOPROLOL TARTRATE 25 MG TAB PO SCH ×2 (10:33→22:00)
[2023-08-10] MEDS: methylPREDNISolone SOD SUCC 40 MG/ML VL IV SCH ×2 (10:33→22:00)
[2023-08-10] MEDS: FUROSEMIDE 40 MG/4 ML VIAL IV SCH (10:36)
[2023-08-10] MEDS: UREA 15gm PO Powder PKG PO SCH ×2 (13:28→22:00)
[2023-08-10] MEDS: amLODIPine BESYLATE 5 MG TAB PO SCH (19:04)
[2023-08-10] MEDS: ATORVASTATIN 20 MG TAB PO SCH (22:00)
[2023-08-11] VITALS (15 sets, daily range): BP systolic 142–157; BP diastolic 62–96; PULSE 60–95; RESP 12–18; TEMP 97.2–98.6; O2SAT 94–100
[2023-08-11] MEDS: METOPROLOL TARTRATE 25 MG TAB PO SCH ×4 (02:49→22:43)
[2023-08-11] MEDS: IPRATROPIUM BROM 0.5 MG/2.5ML INH SOL NEB SCH ×5 (06:36→22:58)
[2023-08-11] MEDS: ALBUTEROL SULF 2.5 MG/0.5ML(0.5%) NEB SOLN NEB SCH ×5 (06:36→22:58)
[2023-08-11] MEDS: cefTRIAXone 1GM/50ML D5W 50 ML IV SCH (11:02)
[2023-08-11] MEDS: methylPREDNISolone SOD SUCC 40 MG/ML VL IV SCH ×2 (11:02→22:42)
[2023-08-11] MEDS: UREA 15gm PO Powder PKG PO SCH ×2 (11:03→22:43)
[2023-08-11] MEDS: FUROSEMIDE 40 MG/4 ML VIAL IV SCH (11:03)
[2023-08-11] MEDS: ENOXAPARIN SOD 40 MG/0.4 ML SYRINGE SC SCH (11:04)
[2023-08-11] MEDS: AZITHROMYCIN 500MG/ 250ML 250 ML IV SCH (11:04)
[2023-08-11 16:37] LABS: Chloride 89 mmol/L (98-107); Potassium 4.5 mmol/L (3.5-5.1); Sodium 128 mmol/L (136-145)
[2023-08-11 16:38] LABS: Anion Gap 5 (5-15); Calcium 9.3 mg/dL (8.7-10.4); Carbon Dioxide 34 mmol/L (20-30)
[2023-08-11 16:43] LABS: BUN/Creatinine Ratio 37.2 (10.0-20.0); Glucose 346 mg/dL (74-106)
[2023-08-11 16:45] LABS: Blood Urea Nitrogen 29 mg/dL (9-23)
[2023-08-11] MEDS: amLODIPine BESYLATE 5 MG TAB PO SCH (18:34)
[2023-08-11] MEDS: ATORVASTATIN 20 MG TAB PO SCH (22:42)
[2023-08-12] VITALS (16 sets, daily range): BP systolic 119–163; BP diastolic 53–74; PULSE 74–94; RESP 14–18; TEMP 97.2–98.1; O2SAT 93–100
[2023-08-12 06:32] LABS: Calcium 9.9 mg/dL (8.5-10.1); Chloride 90 mmol/L (98-107); Potassium 4.6 mmol/L (3.5-5.1); Sodium 130 mmol/L (136-145)
[2023-08-12 06:33] LABS: Anion Gap 6 (5-15); Carbon Dioxide 34 mmol/L (20-30)
[2023-08-12 06:38] LABS: BUN/Creatinine Ratio 41.3 (10.0-20.0); Blood Urea Nitrogen 33 mg/dL (9-23); Glucose 321 mg/dL (74-106)
[2023-08-12] MEDS: ALBUTEROL SULF 2.5 MG/0.5ML(0.5%) NEB SOLN NEB SCH ×5 (06:43→22:00)
[2023-08-12] MEDS: IPRATROPIUM BROM 0.5 MG/2.5ML INH SOL NEB SCH ×5 (06:43→22:00)
[2023-08-12] MEDS: cefTRIAXone 1GM/50ML D5W 50 ML IV SCH (10:17)
[2023-08-12] MEDS: ENOXAPARIN SOD 40 MG/0.4 ML SYRINGE SC SCH (10:17)
[2023-08-12] MEDS: FUROSEMIDE 40 MG/4 ML VIAL IV SCH (10:19)
[2023-08-12] MEDS: methylPREDNISolone SOD SUCC 40 MG/ML VL IV SCH ×2 (10:19→21:47)
[2023-08-12] MEDS: METOPROLOL TARTRATE 25 MG TAB PO SCH ×2 (10:20→21:46)
[2023-08-12] MEDS: UREA 15gm PO Powder PKG PO SCH ×2 (10:20→21:47)
[2023-08-12] MEDS: amLODIPine BESYLATE 5 MG TAB PO SCH (18:44)
[2023-08-12] MEDS: AZITHROMYCIN 500MG/ 250ML 250 ML IV SCH (18:45)
[2023-08-12] MEDS: ATORVASTATIN 20 MG TAB PO SCH (21:44)
[2023-08-13] VITALS (11 sets, daily range): BP systolic 138–155; BP diastolic 67–130; PULSE 77–88; RESP 16–22; TEMP 97.7–99.3; O2SAT 93–100
[2023-08-13 06:13] LABS: Anion Gap 5 (5-15); Carbon Dioxide 35 mmol/L (20-30); Chloride 90 mmol/L (98-107); Potassium 4.4 mmol/L (3.5-5.1); Sodium 130 mmol/L (136-145)
[2023-08-13 06:14] LABS: Calcium 9.5 mg/dL (8.7-10.4)
[2023-08-13 06:19] LABS: Blood Urea Nitrogen 41 mg/dL (9-23); Glucose 349 mg/dL (74-106)
[2023-08-13] MEDS: IPRATROPIUM BROM 0.5 MG/2.5ML INH SOL NEB SCH ×3 (06:26→14:16)
[2023-08-13] MEDS: ALBUTEROL SULF 2.5 MG/0.5ML(0.5%) NEB SOLN NEB SCH ×3 (06:26→14:16)
[2023-08-13] MEDS: ENOXAPARIN SOD 40 MG/0.4 ML SYRINGE SC SCH (09:05)
[2023-08-13] MEDS: FUROSEMIDE 40 MG/4 ML VIAL IV SCH (09:06)
[2023-08-13] MEDS: cefTRIAXone 1GM/50ML D5W 50 ML IV SCH (09:06)
[2023-08-13] MEDS: methylPREDNISolone SOD SUCC 40 MG/ML VL IV SCH (09:06)
[2023-08-13] MEDS: METOPROLOL TARTRATE 25 MG TAB PO SCH (09:06)
[2023-08-13] MEDS: AZITHROMYCIN 500MG/ 250ML 250 ML IV SCH (10:20)
[2023-08-13] MEDS: HYDROcodone-ACET 5/325MG TAB PO PRN (10:20)
[2023-08-13] MEDS: UREA 15gm PO Powder PKG PO SCH (10:20)
[2023-08-13] MEDS ORDERED: AUG875T PO (15:14)
== END 2023-08-13 17:09 | disposition home health service (06) | DRG 137 ==
LOC: ER 10:01 → TELE 15:01 → TELE-WESTW 22:42
PROVIDERS: ADMIT Internal Medicine; ATTEND Internal Medicine
DX: J15.69 Pneumonia due to other Gram-negative bacteria (principal); J96.21 Acute and chronic respiratory failure with hypoxia; E22.2 Syndrome of inappropriate secretion of antidiuretic hormone; I50.9 Heart failure, unspecified; I11.0 Hypertensive heart disease with heart failure; J15.9 Unspecified bacterial pneumonia; Z99.81 Dependence on supplemental oxygen; J44.1 Chronic obstructive pulmonary disease with (acute) exacerbation; E78.5 Hyperlipidemia, unspecified; E11.9 Type 2 diabetes mellitus without complications; I25.10 Atherosclerotic heart disease of native coronary artery without angina pectoris; Z95.5 Presence of coronary angioplasty implant and graft; Z20.822 Contact with and (suspected) exposure to COVID-19; Z79.899 Other long term (current) drug therapy; Z83.3 Family history of diabetes mellitus; Z85.3 Personal history of malignant neoplasm of breast; Z90.710 Acquired absence of both cervix and uterus; D49.1 Neoplasm of unspecified behavior of respiratory system
CPT/HCPCS: 36415; 36600; 71045; 71250; 80048; 80053; 81001; 82550; 82570; 82805; 83605; 83880; 83930; 83935; 84295; 84300; 84484; 84550; 85025; 85610; 86141; 86803; 87340; 87426; 87804; 93005; 93306; 94640; 96365; 96367; 96375; 97110; 97116; 97163; 97530; G0378; J7042